=== PATIENT | female | born 1945 | race Two or more races ===

== ENCOUNTER → 2016-09-25 | Outpatient (CLI) | payer MEDICARE, MEDICAID | LOC: OD 13:11 | PROVIDERS: ATTEND Internal Medicine | DX: M25.512 Pain in left shoulder (principal) ==

== ENCOUNTER → 2016-09-25 | Outpatient (CLI) | payer MEDICARE, MEDICAID ==
--- NOTE | 2016-09-25 14:15 | WOMENS IMAGING REPORT ---
EXAM DESCRIPTION: BONE DENSITY HIP/SPINE COMPLETED DATE/TIME: 09/25/2016 1:08 pm REASON FOR STUDY: M81.0 OSTEO M81.0 AGE-RELATED OSTEOPOROSIS W/O CURRENT PATHOLOGICAL FRAC COMPARISON: PET-CT 03/17/2016 Bone density 07/18/2014 TECHNIQUE: Dual-Energy X-ray Absorptiometry (DEXA) of the AP Spine and Hip. LIMITATIONS: None. FINDINGS: LUMBAR SPINE: The bone mineral density (BMD) measured from L1-L4 in the AP projection correlates with a T-score of -3.0, which is osteoporotic as defined by the World Health Organization. This represents a 10% incre ase in bone density compared to 2013 HIP: The bone mineral density (BMD) measured in the left total hip correlates with a T-score of -2.4, whic h is borderline osteoporotic as defined by the World Health Organization. This represents a 10% incr ease in bone density compared to 2013 COMMENT: The World Health Organization defines low BMD as follows: T-score: Normal: Greater than -1.0 Osteopenia: Between -1.0 and -2.5 Osteoporosis: Less than -2.5 without fractures Established osteoporosis: Less than -2.5 with fractures In general, you may wish to consider: Diagnosis Treatment Follow-up DEXA Normal BMD Prevention 2-3 years Osteopenia Prevention/Therapy 1-2 years Osteoporosis Therapy Yearly TECHNICAL DOCUMENTATION: JOB ID: [id number]- All Rights Reserved
== END ==
LOC: WI 12:54
PROVIDERS: ATTEND Internal Medicine
DX: M81.0 Age-related osteoporosis without current pathological fracture (principal)
CPT/HCPCS: 77080

== ENCOUNTER → 2016-09-29 | Outpatient (CLI) | payer MEDICARE, MEDICAID | LOC: RAD 17:45 | PROVIDERS: ATTEND Internal Medicine | DX: C34.32 Malignant neoplasm of lower lobe, left bronchus or lung (principal) | CPT/HCPCS: 78815; A9552 ==

== ENCOUNTER → 2016-12-22 | Outpatient (CLI) | payer MEDICARE, MEDICAID | LOC: RAD 17:02 | PROVIDERS: ATTEND Internal Medicine | DX: C34.32 Malignant neoplasm of lower lobe, left bronchus or lung (principal) | CPT/HCPCS: 78815; A9552 ==

== ENCOUNTER → 2017-01-31 | Outpatient (CLI) | payer MEDICARE, MEDICAID ==
[2017-01-31 19:46] LABS: ANION GAP 10 (5-19); BLOOD UREA NITROGEN 12 mg/dL (7-20); CALCIUM 9.4 mg/dL (8.4-10.2); CARBON DIOXIDE 22 mmol/L (22-30); CHLORIDE 98 mmol/L (98-107); CREATININE RESULT 0.97 mg/dL (0.52-1.25); GLUCOSE 97 mg/dL (75-110); SODIUM 129.5 mmol/L (137-145)
== END ==
LOC: LAB 19:08
PROVIDERS: ATTEND Family Medicine
DX: E87.1 Hypo-osmolality and hyponatremia (principal)
CPT/HCPCS: 36415; 80048; 83930; 83935; 84300

== ENCOUNTER 2017-02-03 18:42 | Emergency (ER) | payer MEDICARE, MEDICAID ==
[2017-02-03] MEDS ORDERED: CEFTRIAXONE 1 GM/D5W RTU 50 ML IV ONE (18:48)
--- NOTE | 2017-02-03 18:50 | ER Document Report ---
ED General - General Stated Complaint: WEAKNESS Time Seen by Provider: 02/03/17 18:48 Mode of Arrival: Ambulatory Information source: Patient, Relative Notes: 71-year-old female who is currently on her eighth round of immunotherapy for enlarged lymph node with a history of lung CA presents with complaint of fever. Patient denies any complaints at all. Patient's oncologist requested lab work TRAVEL OUTSIDE OF THE [place] IN LAST 30 DAYS: No - HPI Onset: Yesterday Onset/Duration: Sudden Quality of pain: No pain Severity: None Pain Level: Denies Associated symptoms: Fever Exacerbated by: Denies Relieved by: Denies Similar symptoms previously: Yes Recently seen / treated by doctor: Yes - Related Data Allergies/Adverse Reactions: Penicillins Allergy (Unknown, Verified 06/18/13 12:21) Sulfa (Sulfonamide Antibiotics) Allergy (Unknown, Verified 06/18/13 12:21) Past Medical History - Social History Smoking Status: Never Smoker Cigarette use (# per day): No Chew tobacco use (# tins/day): No Smoking Education Provided: No Family History: Reviewed & Not Pertinent - Past Medical History Cardiac Medical History: Reports: Hx Hypertension Denies: Hx Heart Attack Pulmonary Medical History: Denies: Hx Asthma, Hx Tuberculosis Neurological Medical History: Denies: Hx Cerebrovascular Accident, Hx Seizures GI Medical History: Denies: Hx Hepatitis, Hx Hiatal Hernia, Hx Ulcer Infectious Medical History: Denies: Hx Hepatitis Past Surgical History: Denies: Hx Mastectomy, Hx Open Heart Surgery, Hx Pacemaker - Immunizations Hx Diphtheria, Pertussis, Tetanus Vaccination: No Review of Systems - Review of Systems Notes: REVIEW OF SYSTEMS: CONSTITUTIONAL : admit to fever EENT: Mouth pain CARDIOVASCULAR: Denies chest pain. Denies palpitations or racing or irregular heart beat. Denies ankle edema. RESPIRATORY: Denies cough, cold, or chest congestion. Denies shortness of breath, difficulty breathing, or wheezing. GASTROINTESTINAL: Denies abdominal pain or distention. Denies nausea, vomiting , or diarrhea. Denies blood in vomitus, stools, or per rectum. Denies black, tarry stools. Denies constipation. GENITOURINARY: Denies difficulty urinating, painful urination, burning, frequency, blood in urine, or discharge. FEMALE GENITOURINARY: Denies vaginal bleeding, heavy or abnormal periods, irregular periods. Denies vaginal discharge or odor. MUSCULOSKELETAL: Denies back or neck pain or stiffness. Denies joint pain or swelling. SKIN: Denies rash, lesions or sores. HEMATOLOGIC : Denies easy bruising or bleeding. LYMPHATIC: Denies swollen, enlarged glands. NEUROLOGICAL: Denies confusion or altered mental status. Denies passing out or loss of consciousness. Denies dizziness or lightheadedness. Denies headache. Denies weakness or paralysis or loss of use of either side. Denies problems with gait or speech. Denies sensory loss, numbness, or tingling. Denies seizures. PSYCHIATRIC: Denies anxiety or stress. Denies depression, suicidal ideation, or homicidal ideation. ALL OTHER SYSTEMS REVIEWED AND NEGATIVE. Dictation was performed using [employer] voice recognition software PHYSICAL EXAMINATION: GENERAL: Well-appearing, well-nourished and in no acute distress. HEAD: Atraumatic, normocephalic. EYES: Pupils equal round and reactive to light, extraocular movements intact, conjunctiva are normal. ENT: Nares patent, oropharynx clear without exudates. Moist mucous membranes. Sores on tongue NECK: Normal range of motion, supple without lymphadenopathy LUNGS: Breath sounds clear to auscultation bilaterally and equal. No wheezes rales or rhonchi. HEART: Regular rate and rhythm without murmurs ABDOMEN: Soft, nontender, nondistended abdomen. No guarding, no rebound. No masses appreciated. Female : deferred Musculoskeletal: Normal range of motion, no pitting or edema. No cyanosis. NEUROLOGICAL: Cranial nerves grossly intact. Normal speech, normal gait. Normal sensory, motor exams PSYCH: Normal mood, normal affect. SKIN: Warm, Dry, normal turgor, no rashes or lesions noted. Physical Exam - Vital signs Vitals: Temp 98.8 F 02/03/17 20:29 Course - Re-evaluation Re-evalutation: 02/03/17 18:50 Labwork is pending patient otherwise she looks extremely well given history of immuno compromised state cultures are pending 02/03/17 20:56 Mild hyponatremia is noted, patient otherwise looks well, I will defer on any further treatment at family request. have no suspicion for sepsis After performing a Medical Screening Examination, I estimate there is LOW risk for ACUTE CORONARY SYNDROME, RESPIRATORY FAILURE, SEPSIS OR MENINGITIS, thus I consider the discharge disposition reasonable. I have reevaluated this patient multiple times and no significant life threatening changes are noted. The patient son and I have discussed the diagnosis and risks, and we agree with discharging home with close follow-up. We also discussed returning to the Emergency Department immediately if new or worsening symptoms occur. We have discussed the symptoms which are most concerning (e.g., changing or worsening pain, trouble swallowing or breathing, neck stiffness, fever) that necessitate immediate return. - Vital Signs Vital signs: Temp Pulse Resp BP Pulse Ox 98.8 F 83 18 149/60 H 100 02/03/17 20:30 02/03/17 20:31 02/03/17 20:31 02/03/17 20:31 02/03/17 20:31 - Laboratory Result Diagrams: 02/03/17 19:55 02/03/17 20:05 Laboratory results interpreted by me: 02/03/17 02/03/17 02/03/17 19:05 19:55 20:05 RBC 3.55 L Hgb 10.3 L Hct 31.8 L VBG pH VBG pCO2 Sodium 124.3 L Chloride 95 L Carbon Dioxide 20 L Est GFR (Non-Af Amer) 55 L Urine Ascorbic Acid 40 H 02/03/17 20:05 RBC Hgb Hct VBG pH 7.44 H VBG pCO2 33.4 L Sodium Chloride Carbon Dioxide Est GFR (Non-Af Amer) Urine Ascorbic Acid - Diagnostic Test Radiology reviewed: Image reviewed, Reports reviewed - questionble infiltrate - EKG Interpretation by Me EKG shows normal: Sinus rhythm, Canmer, Intervals, QRS Complexes Discharge - Discharge Clinical Impression: Cough, Hyponatremia Fever Qualifiers: Fever type: unspecified Qualified Code(s): R50.9 - Fever, unspecified Condition: Stable Disposition: HOME, SELF-CARE Instructions: Fever ([facility]) Referrals: KHRIS TIDWELL MD [Primary Care Provider] - Follow up tomorrow
--- NOTE | 2017-02-03 19:26 | RADIOLOGY REPORT (SQ) ---
EXAM DESCRIPTION: CHEST PA/LAT COMPLETED DATE/TIME: 02/03/2017 7:10 pm REASON FOR STUDY: fever COMPARISON: PET scan dated November 2016 EXAM PARAMETERS: NUMBER OF VIEWS: two views TECHNIQUE: Digital Frontal and Lateral radiographic views of the chest acquired. RADIATION DOSE: NA LIMITATIONS: none FINDINGS: LUNGS AND PLEURA: There are patchy pleural and parenchymal densities in the left mid and l ower lung field which appear improved as compared to the previous PET scan. These could represent re sidual changes related to the mass lesions described on the previous study. The possibility of an ac danny process cannot be excluded. There is some ill-defined increased density in the right lung apex w hich could represent a developing infiltrate. MEDIASTINUM AND HILAR STRUCTURES: Left hilum is partially obscured due to overlying densities. HEART AND VASCULAR STRUCTURES: Heart normal size. No evidence for failure. BONES: No acute findings. HARDWARE: Surgical clips are identified in left lower hemithorax and in the right lung apex. OTHER: No other significant finding. IMPRESSION: There are patchy pleuroparenchymal changes in the left mid and lower lung field as noted above which appear improved as compared to the previous PET-CT scan. This could represent residual changes related to the mass lesions described on the previous study. The possibility of an acute pro cess cannot be excluded. There is some ill-defined increased density in the right lung apex which co uld represent a developing infiltrate. Other findings as noted above TECHNICAL DOCUMENTATION: JOB ID: [id number]- All Rights Reserved
[2017-02-03 20:05] LABS: APPEARANCE,URINE CLEAR; BILIRUBIN,URINE NEGATIVE (NEGATIVE); GLUCOSE, URINE NEGATIVE (NEGATIVE); KETONES,URINE NEGATIVE (NEGATIVE); LEUKOCYTE ESTERASE,URINE NEGATIVE (NEGATIVE); NITRITE,URINE NEGATIVE (NEGATIVE); PROTEIN,URINE NEGATIVE (NEGATIVE); URINE SPECIFIC GRAVITY 1.006; UROBILINOGEN,URINE NEGATIVE mg/dL (<2.0)
[2017-02-03 20:07] LABS: ABSOLUTE BASOPHILS # (AUTO) 0.1 10^3/uL (0.0-0.2); ABSOLUTE EOSINOPHILS # (AUTO) 0.1 10^3/uL (0.0-0.6); ABSOLUTE LYMPHOCYTES (AUTO) 1.4 10^3/uL (0.5-4.7); ABSOLUTE MONOCYTES (AUTO) 0.9 10^3/uL (0.1-1.4); ABSOLUTE NEUT (AUTO) 4.6 10^3/uL (1.7-8.2); BASOPHILS % (AUTO) 1.2 % (0-2); EOSINOPHILS % (AUTO) 0.9 % (0-6); HEMATOCRIT 31.8 % (36.0-47.0); HEMOGLOBIN 10.3 g/dL (12.0-15.5); HGB HCT DIFFERENCE -0.9; LYMPHOCYTES % (AUTO) 20.1 % (13-45); MEAN CORPUSCULAR HEMOGLOBIN 29.1 pg (27.0-33.4); MEAN CORPUSCULAR HGB CONC 32.4 g/dL (32.0-36.0); MEAN CORPUSCULAR VOLUME 90 fl (80-97); MONOCYTES % (AUTO) 12.4 % (3-13); RED BLOOD COUNT 3.55 10^6/uL (3.72-5.28); RED CELL DISTRIBUTION WIDTH 13.8 % (11.5-14.0); SEGMENTED NEUTROPHILS % (AUTO) 65.4 % (42-78); WHITE BLOOD COUNT 7.1 10^3/uL (4.0-10.5)
[2017-02-03 20:19] LABS: VENOUS BLOOD BASE EXCESS -1.7 mmol/L; VENOUS BLOOD PCO2 33.4 mmHg (35-63); VENOUS BLOOD PH 7.44 (7.30-7.42)
[2017-02-03 20:30] LABS: PROTHROMBIN TIME 12.8 SEC (11.4-15.4)
[2017-02-03 20:38] LABS: ALANINE AMINOTRANSFERASE 30 U/L (9-52); ALBUMIN 3.7 g/dL (3.5-5.0); ALKALINE PHOSPHATASE 85 U/L (38-126); ANION GAP 9 (5-19); ASPARTATE AMINO TRANSFERASE 28 U/L (14-36); BILIRUBIN,DIRECT 0.4 mg/dL (0.0-0.4); BILIRUBIN,TOTAL 0.6 mg/dL (0.2-1.3); BLOOD UREA NITROGEN 12 mg/dL (7-20); CALCIUM 9.4 mg/dL (8.4-10.2); CARBON DIOXIDE 20 mmol/L (22-30); CHLORIDE 95 mmol/L (98-107); CREATININE RESULT 0.99 mg/dL (0.52-1.25); GLUCOSE 99 mg/dL (75-110); POTASSIUM 4.9 mmol/L (3.6-5.0); SODIUM 124.3 mmol/L (137-145); TOTAL PROTEIN 6.8 g/dL (6.3-8.2)
[2017-02-03 21:09] VITALS: BP 143/64
--- NOTE | 2017-02-03 21:15 | EKG REPORT ---
SEVERITY:- BORDERLINE ECG - SINUS ARRHYTHMIA, RATE 70-94 PROBABLE LEFT ATRIAL ABNORMALITY LOW VOLTAGE IN FRONTAL LEADS : Confirmed by: Gila Campos 03-Feb-2017 21:15:03
[2017-02-03 21:55] LABS: FREE T3 3.08 pg/mL (2.77-5.27)
[2017-02-03 22:09] LABS: THYROID STIMULATING HORMONE 5.73 uIU/mL (0.47-4.68)
== END 2017-02-03 21:10 | disposition home or self-care (01) ==
LOC: ER 18:42
DX: R50.9 Fever, unspecified (principal); E87.1 Hypo-osmolality and hyponatremia; R05 Cough; K13.79 Other lesions of oral mucosa; R59.9 Enlarged lymph nodes, unspecified; I10 Essential (primary) hypertension; Z85.118 Personal history of other malignant neoplasm of bronchus and lung; Z79.899 Other long term (current) drug therapy; Z88.0 Allergy status to penicillin; Z88.2 Allergy status to sulfonamides
CPT/HCPCS: 36415; 71020; 80053; 81001; 82803; 83605; 84439; 84443; 84481; 85025; 85610; 87040; 87086; 93005; 93010; 99284

== ENCOUNTER → 2017-02-05 | Outpatient (CLI) | payer MEDICARE, MEDICAID ==
[2017-02-05 08:30] LABS: ANION GAP 10 (5-19); BLOOD UREA NITROGEN 11 mg/dL (7-20); CALCIUM 9.4 mg/dL (8.4-10.2); CARBON DIOXIDE 23 mmol/L (22-30); CHLORIDE 96 mmol/L (98-107); CREATININE RESULT 1.09 mg/dL (0.52-1.25); GLUCOSE 102 mg/dL (75-110); POTASSIUM 4.9 mmol/L (3.6-5.0); SODIUM 128.9 mmol/L (137-145)
== END ==
LOC: LAB 07:51
PROVIDERS: ATTEND Physician Assistant
DX: E87.1 Hypo-osmolality and hyponatremia (principal)
CPT/HCPCS: 36415; 80048

== ENCOUNTER → 2017-02-10 | Outpatient (CLI) | payer MEDICARE, MEDICAID ==
[2017-02-10 08:04] LABS: ANION GAP 13 (5-19); BLOOD UREA NITROGEN 10 mg/dL (7-20); CALCIUM 8.7 mg/dL (8.4-10.2); CARBON DIOXIDE 20 mmol/L (22-30); CHLORIDE 100 mmol/L (98-107); CREATININE RESULT 0.94 mg/dL (0.52-1.25); GLUCOSE 92 mg/dL (75-110); POTASSIUM 4.7 mmol/L (3.6-5.0); SODIUM 132.5 mmol/L (137-145)
== END ==
LOC: LAB 07:34
PROVIDERS: ATTEND Physician Assistant
DX: E87.1 Hypo-osmolality and hyponatremia (principal)
CPT/HCPCS: 36415; 80048

== ENCOUNTER 2017-03-11 12:19 | Outpatient (CLI) | payer MEDICARE, MEDICAID ==
[~2017-03-11 12:19] MED LIST: FERUMOXYTOL (NON-ESRD) 510 MG/NS 100 ML IV PRN; NORMAL SALINE 250 ML IV PRN
[2017-03-11 13:08] VITALS: BP 140/47
== END 2017-03-11 13:25 | disposition home or self-care (01) ==
LOC: II 12:19 → 5TH 12:21 → II 13:25
PROVIDERS: ATTEND Internal Medicine
PROC: 3E033GC Introduction of Other Therapeutic Substance into Peripheral Vein, Percutaneous Approach (ICD-10-PCS; principal; 2017-03-11)
DX: C34.32 Malignant neoplasm of lower lobe, left bronchus or lung (principal)
CPT/HCPCS: 96365; Q0138

== ENCOUNTER → 2017-03-30 | Outpatient (CLI) | payer MEDICARE, MEDICAID ==
--- NOTE | 2017-03-31 08:56 | RADIOLOGY REPORT (SQ) ---
EXAM DESCRIPTION: PET CT SKULL/THIGH COMPLETED DATE/TIME: 03/30/2017 7:13 pm REASON FOR STUDY: LUNG CANCER C34.32 MALIGNANT NEOPLASM OF LOWER LOBE, LEFT BRONCHUS OR LOU COMPARISON: 12/22/2016 and 09/29/2016. RADIONUCLIDE AND DOSE: 12.0 mCi F18 FDG The route of agent administration: Intravenous FASTING BLOOD SUGAR: 74 mg/dl CONTRAST TYPE AND DOSE: No CT contrast given. TECHNIQUE: Blood glucose level was verified. Above dose of FDG was injected intravenously. 2-D seg mented attenuation correction images were obtained from the base of the skull to the midthighs. Nonc ontrast CT images were obtained for attenuation correction and fusion with emission images. CT image s were performed without oral or intravenous contrast and are not sensitive for parenchymal lesions. A series of overlapping emission PET images were obtained. Images reviewed and manipulated at [facility] work station by the radiologist. Images stored on PACS. LIMITATIONS: None. FINDINGS: HEAD AND NECK: There is a new hypermetabolic cervical lymph node on the left side. This m easures 7 mm (image 28) with mean SUV value 3.38 and maximum value 4.65. Additional smaller subcenti meter lymph nodes bilaterally at roughly the same level with mean SUV value on the right 2.92 and on the left 3.36. There is also a focal area of increased activity on the right side of the thyroid. O n CT images difficult to determine if this is the thyroid or could be a small adjacent lymph node. M woody SUV value 3.21. CHEST: The mass in the left lower lobe is smaller, currently measuring 2.4 x 3.3 cm with prior measur ement of 3.1 x 3.5 cm. Mean SUV value 3.21 with prior value of 3. Subcarinal lymph node measures 0. 8 x 1.2 cm with prior measurement of 1.5 x 1.7 cm. Mean SUV value 4.52 with prior value of 6.5. The re are small bilateral hilar lymph nodes, subcentimeter, with mean SUV value on the right 3.04 and on the left 3.50. Previously seen right supraclavicular lymph node is no longer present. There are ra diotherapy markers at this level. Previously seen right paratracheal lymph node with no measurable m etabolic activity. ABDOMEN AND PELVIS: No areas of abnormal metabolic activity in the abdomen or pelvis. Expected physi ologic activity is present in the genitourinary system and bowel. PROXIMAL LOWER EXTREMITIES: No areas of abnormal metabolic activity in the soft tissues of the lower extremities. BONES: No abnormal metabolic activity in the visualized skeleton. ADDITIONAL CT FINDINGS: Hiatal hernia. Colonic diverticulosis. No additional significant findings o n the noncontrast CT images. OTHER: No other significant findings. IMPRESSION: 1. GENERAL IMPROVEMENT IN THE CHEST. THE LEFT LOWER LOBE MASS AND THE SUBCARINAL LYMPH NODE HAVE BOT H DECREASED IN SIZE WITH DECREASED METABOLIC ACTIVITY COMPARED TO THE MOST RECENT STUDY. THE RIGHT S UPRACLAVICULAR LYMPH NODE IS NO LONGER PRESENT. THERE ARE NOW RADIOTHERAPY MARKERS AT THIS LEVEL. T HERE IS MILD HILAR ACTIVITY. 2. INTERVAL DEVELOPMENT OF SMALL SUBCENTIMETER CERVICAL LYMPH NODES WITH INCREASED METABOLIC ACTIVITY . THESE COULD REPRESENT METASTATIC LESIONS ALTHOUGH OTHER ETIOLOGIES INCLUDE INFLAMMATION OR INFECTI ON. TECHNICAL DOCUMENTATION: JOB ID: [id number] [email or web address]- All Rights Reserved
== END ==
LOC: RAD 16:28
PROVIDERS: ATTEND Internal Medicine
DX: C34.32 Malignant neoplasm of lower lobe, left bronchus or lung (principal)
CPT/HCPCS: 78815; A9552

== ENCOUNTER → 2017-06-22 | Outpatient (CLI) | payer MEDICARE, MEDICAID ==
--- NOTE | 2017-06-23 08:57 | RADIOLOGY REPORT (SQ) ---
EXAM DESCRIPTION: PET CT SKULL/THIGH COMPLETED DATE/TIME: 06/22/2017 5:18 pm REASON FOR STUDY: LUNG CANCER C34.32 MALIGNANT NEOPLASM OF LOWER LOBE, LEFT BRONCHUS OR LOU COMPARISON: Multiple previous, 03/30/2017, 12/22/2016, 09/29/2016, 04/09/2013 PET-CT RADIONUCLIDE AND DOSE: 10.2 mCi F18 FDG The route of agent administration: Intravenous FASTING BLOOD SUGAR: 79 mg/dl CONTRAST TYPE AND DOSE: No CT contrast given. TECHNIQUE: Blood glucose level was verified. Above dose of FDG was injected intravenously. 2-D seg mented attenuation correction images were obtained from the base of the skull to the midthighs. Nonc ontrast CT images were obtained for attenuation correction and fusion with emission images. CT image s were performed without oral or intravenous contrast and are not sensitive for parenchymal lesions. A series of overlapping emission PET images were obtained. Images [facility] by the radiologist. Images stored on PACS. LIMITATIONS: None. FINDINGS: There is diffuse brown fat activity throughout the supraclavicular and paraspinal regions. Most activity areas of brown fat metabolism are along the right posterior rib interspace between th e 6th and 7th ribs, with SUV 2.9. Prompt fat metabolism is also seen in the left lower paraspinal re gion between the left posterior 9th and 10th ribs, with SUV 3.4. HEAD AND NECK: Hypermetabolic cervical nodes seen on 03/30/2017 have resolved. CHEST: Persistent soft tissue mass in the left lower lobe with adjacent radiotherapy treatment marker s, 3.5 x 2.5 cm in size with SUV 2.8 (was stable in size since 03/30/2017, SUV at that time 3.2). There is a sub- carinal lymph node stable in size, 1.2 x 0.7 cm in size, with SUV 3.7 (SUV 03/30/2017 4.5). A subcentimeter right hilar lymph node is present on axial image 73 with SUV 2.4 (was SUV 3.01 2016). The left hilar lymph node difficult to measure in size, about a cm on axial image 74 has SUV today at 2.5 (was 3.5 on 03/30/2017). ABDOMEN AND PELVIS: No areas of abnormal metabolic activity in the abdomen or pelvis. Expected physi ologic activity is present in the genitourinary system and bowel. PROXIMAL LOWER EXTREMITIES: No areas of abnormal metabolic activity in the soft tissues of the lower extremities. BONES: No abnormal metabolic activity in the visualized skeleton. ADDITIONAL CT FINDINGS: Moderate-sized retrocardiac hiatal hernia, colonic diverticulosis without CT signs of acute diverticulitis. OTHER: Liver background SUV 1.8. Blood pool background activity 1.6 SUV IMPRESSION: Continued favorable response, with low level metabolic activity in the primary left lowe r lobe tumor and few small mediastinal lymph nodes. Diffuse brown fat activity. TECHNICAL DOCUMENTATION: JOB ID: [id number] [employer]- All Rights Reserved
== END ==
LOC: RAD 14:37
PROVIDERS: ATTEND Internal Medicine
DX: C34.32 Malignant neoplasm of lower lobe, left bronchus or lung (principal)
CPT/HCPCS: 78815; A9552

== ENCOUNTER → 2017-10-26 | Outpatient (CLI) | payer MEDICARE, MEDICAID ==
--- NOTE | 2017-10-27 07:11 | RADIOLOGY REPORT (SQ) ---
EXAM DESCRIPTION: PET CT SKULL/THIGH COMPLETED DATE/TIME: 10/26/2017 6:28 pm REASON FOR STUDY: LUNG CANCER C34.32 MALIGNANT NEOPLASM OF LOWER LOBE, LEFT BRONCHUS OR LOU COMPARISON: 03/30/2017, 03/17/2016, 01/22/2015, 07/10/2014, 04/09/2013 PET-CT exams RADIONUCLIDE AND DOSE: 10.1 mCi F18 FDG The route of agent administration: Intravenous FASTING BLOOD SUGAR: 71 mg/dl CONTRAST TYPE AND DOSE: No CT contrast given. TECHNIQUE: Blood glucose level was verified. Above dose of FDG was injected intravenously. 2-D seg mented attenuation correction images were obtained from the base of the skull to the midthighs. Nonc ontrast CT images were obtained for attenuation correction and fusion with emission images. CT image s were performed without oral or intravenous contrast and are not sensitive for parenchymal lesions. A series of overlapping emission PET images were obtained. Images reviewed and manipulated at [facility] work station by the radiologist. Images stored on PACS. LIMITATIONS: None. FINDINGS: HEAD AND NECK: Hypermetabolic cervical nodes described on 03/30/2017 have resolved. Just d orsal to the right permanent central line, a subcentimeter supraclavicular lymph node is present on a xial image 41 with SUV 2.5. This is of doubtful clinical significance. CHEST: The primary mass in the left lower lobe surrounded by radiotherapy treatment markers is stable in size, about 3.3 x 2.5 cm in diameter with SUV 3.7 (was 3.3 x 2.4 cm in size with SUV 3.21 03/30/20). There is a sub-carinal lymph node 1.1 x 0.6 cm in size with SUV of 4 (was 1.2 x 0.8 cm with SUV 4.5 o n 03/30/2017). ABDOMEN AND PELVIS: No areas of abnormal metabolic activity in the abdomen or pelvis. Expected physi ologic activity is present in the genitourinary system and bowel. PROXIMAL LOWER EXTREMITIES: No areas of abnormal metabolic activity in the soft tissues of the lower extremities. BONES: Small non metabolic sclerotic foci are present in the left C7 pedicle, left T1 lamina and brig ht T2 lamina unchanged since 2012. ADDITIONAL CT FINDINGS: Large retrocardiac hiatal hernia. Calcified granuloma right posterior lung b ase. OTHER: Liver background activity 2.65 SUV. Blood pool activity 2.1 SUV IMPRESSION: Stable left lower lobe mass and sub- carinal lymph node compared to multiple previous st udies. Resolved cervical adenopathy seen on 03/30/2017 TECHNICAL DOCUMENTATION: JOB ID: [id number] [employer]- All Rights Reserved Reading location - IP/workstation name: [email or web address]
== END ==
LOC: RAD 15:01
PROVIDERS: ATTEND Internal Medicine
DX: C34.32 Malignant neoplasm of lower lobe, left bronchus or lung (principal)
CPT/HCPCS: 78815; A9552

== ENCOUNTER → 2017-11-04 | Outpatient (CLI) | payer MEDICARE, MEDICAID ==
[2017-11-04 10:35] LABS: FREE T4 (FREE THYROXINE) 0.64 ng/dL (0.78-2.19)
[2017-11-04 10:49] LABS: THYROID STIMULATING HORMONE 76.7 uIU/mL (0.47-4.68)
[2017-11-04 12:57] LABS: FREE T3 1.77 pg/mL (2.77-5.27)
[2017-11-04 12:58] LABS: FREE T4 (FREE THYROXINE) 0.64 ng/dL (0.78-2.19); THYROID STIMULATING HORMONE 76.7 uIU/mL (0.47-4.68)
== END ==
LOC: OD 08:35
PROVIDERS: ATTEND Physician Assistant
DX: E03.9 Hypothyroidism, unspecified (principal)
CPT/HCPCS: 36415; 84439; 84443; 84481

== ENCOUNTER → 2017-12-30 | Outpatient (CLI) | payer MEDICARE, MEDICAID ==
[2017-12-30 14:19] LABS: FREE T4 (FREE THYROXINE) 1.47 ng/dL (0.78-2.19)
[2017-12-30 14:33] LABS: THYROID STIMULATING HORMONE 3.68 uIU/mL (0.47-4.68)
== END ==
LOC: OD 12:04
PROVIDERS: ATTEND Physician Assistant
DX: E03.9 Hypothyroidism, unspecified (principal)
CPT/HCPCS: 36415; 84439; 84443

== ENCOUNTER → 2018-02-22 | Outpatient (CLI) | payer MEDICARE, MEDICAID ==
--- NOTE | 2018-02-23 09:15 | RADIOLOGY REPORT (SQ) ---
EXAM DESCRIPTION: PET CT SKULL/THIGH COMPLETED DATE/TIME: 02/22/2018 8:27 pm REASON FOR STUDY: LUNG CANCER C34.32 MALIGNANT NEOPLASM OF LOWER LOBE, LEFT BRONCHUS OR LOU COMPARISON: 10/26/2017 and 03/30/2017. RADIONUCLIDE AND DOSE: 10.0 mCi F18 FDG The route of agent administration: Intravenous FASTING BLOOD SUGAR: 93 mg/dl CONTRAST TYPE AND DOSE: No CT contrast given. TECHNIQUE: Blood glucose level was verified. Above dose of FDG was injected intravenously. 2-D seg mented attenuation correction images were obtained from the base of the skull to the midthighs. Nonc ontrast CT images were obtained for attenuation correction and fusion with emission images. CT image s were performed without oral or intravenous contrast and are not sensitive for parenchymal lesions. A series of overlapping emission PET images were obtained. Images reviewed and manipulated at [facility] work station by the radiologist. Images stored on PACS. LIMITATIONS: None. FINDINGS: HEAD AND NECK: There is prominent focal increased activity in the posterior left vocal cor d at the attachment to the arytenoid. Mean SUV 7.54. No abnormal finding on accompanying CT image. The right supraclavicular lymph node is again identified but currently has no abnormal increased act ivity. No other areas of abnormal metabolic activity in the soft tissues of the head and neck. CHEST: The primary mass in the left lower lobe currently has maximum transverse measurements of 1.8 x 3.9 cm. (Axial series 3, image 98). Prior measurements at this same level were 1.3 x 3.9 cm. (Axi al series 3, image 86). Mean SUV value on the current study 3.87 and 4.39. Prior values were 3.66 a nd 3.74. The previous seen subcarinal lymph node with calcification measures 0.5 x 1.2 cm with prior measurement 0.6 x 1.1 cm. Mean SUV value 4.62 with prior value of 4. Again seen is calcified granu bety in the right lower lobe. Subcentimeter nodule in the left lower lobe (axial series 3, image 112 ) is unchanged and is not hypermetabolic. ABDOMEN AND PELVIS: No areas of abnormal metabolic activity in the abdomen or pelvis. Expected physi ologic activity is present in the genitourinary system and bowel. PROXIMAL LOWER EXTREMITIES: No areas of abnormal metabolic activity in the soft tissues of the lower extremities. BONES: No abnormal metabolic activity in the visualized skeleton. ADDITIONAL CT FINDINGS: Hiatal hernia. No additional significant findings on the noncontrast CT imag es. OTHER: Liver background activity SUV 2.62. Blood pool background activity mean SUV 1.79. IMPRESSION: 1. PROMINENT FOCAL INCREASED ACTIVITY IN THE POSTERIOR LEFT VOCAL CORD DESCRIBED. NO ASSOCIATED F INDING ON CT. THIS IS PRESUMED RELATED TO SPEAKING. UNUSUAL THAT THE ACTIVITY IS ASYMMETRIC AND GASTELUM S NOT INCLUDE THE RIGHT VOCAL CORD. THIS COULD BE INDICATIVE OF RIGHT VOCAL CORD PARALYSIS. RECOMME ND CLINICAL EVALUATION. 2. PRIMARY MASS IN THE LEFT LOWER LOBE IS SLIGHTLY LARGER AND DOES HAVE INCREASED SUV VALUE ON THE CU RRENT STUDY COMPARED TO THE PRIOR STUDY. SUBCARINAL LYMPH NODE IS UNCHANGED IN SIZE WITH MEAN SUV VA LUE ALSO SLIGHTLY HIGHER. THE RIGHT SUPRACLAVICULAR LYMPH NODE IS UNCHANGED ON CT WITH NO ABNORMAL A CTIVITY ON PET IMAGING. NO NEW FINDINGS IN THE CHEST OR ELSEWHERE. TECHNICAL DOCUMENTATION: JOB ID: [id number] [employer]- All Rights Reserved Reading location - IP/workstation name: [email or web address]
== END ==
LOC: RAD 14:42
PROVIDERS: ATTEND Internal Medicine
DX: C34.32 Malignant neoplasm of lower lobe, left bronchus or lung (principal)
CPT/HCPCS: 78815; A9552

== ENCOUNTER → 2018-05-31 | Outpatient (CLI) | payer MEDICARE, MEDICAID ==
--- NOTE | 2018-06-01 09:05 | RADIOLOGY REPORT (SQ) ---
EXAM DESCRIPTION: PET CT SKULL/THIGH COMPLETED DATE/TIME: 05/31/2018 7:29 pm REASON FOR STUDY: LUNG CANCER C34.32 MALIGNANT NEOPLASM OF LOWER LOBE, LEFT BRONCHUS OR LOU COMPARISON: 02/22/2018 RADIONUCLIDE AND DOSE: 10.98 mCi F18 FDG The route of agent administration: Intravenous FASTING BLOOD SUGAR: 84 mg/dl CONTRAST TYPE AND DOSE: No CT contrast given. TECHNIQUE: Blood glucose level was verified. Above dose of FDG was injected intravenously. 2-D seg mented attenuation correction images were obtained from the base of the skull to the midthighs. Nonc ontrast CT images were obtained for attenuation correction and fusion with emission images. CT image s were performed without oral or intravenous contrast and are not sensitive for parenchymal lesions. A series of overlapping emission PET images were obtained. Images reviewed and manipulated at [facility] work station by the radiologist. Images stored on PACS. LIMITATIONS: None. FINDINGS: HEAD AND NECK: No areas of significant abnormal metabolic activity in the soft tissues of the head and neck. CHEST: Left lower lobe lesion 1.7 x 4.1 cm with SUV 4.7 to 5.4, previously 3.9 to 4.4. Station 7 par tially calcified lymph node with no change morphologically or SUV values. ABDOMEN AND PELVIS: No areas of abnormal metabolic activity in the abdomen or pelvis. Expected physi ologic activity is present in the genitourinary system and bowel. PROXIMAL LOWER EXTREMITIES: No areas of abnormal metabolic activity in the soft tissues of the lower extremities. BONES: No abnormal metabolic activity in the visualized skeleton. ADDITIONAL CT FINDINGS: No additional significant findings on the noncontrast CT images. OTHER: No other significant findings. IMPRESSION: Stable exam. Primary lung lesion morphologically unchanged with slight change in SUVs o f uncertain clinical significance. TECHNICAL DOCUMENTATION: JOB ID: [id number] [employer]- All Rights Reserved Reading location - IP/workstation name: [email or web address]
== END ==
LOC: RAD 16:53
PROVIDERS: ATTEND Internal Medicine
DX: C34.32 Malignant neoplasm of lower lobe, left bronchus or lung (principal)
CPT/HCPCS: 78815; A9552

== ENCOUNTER 2018-06-10 12:54 | Outpatient (CLI) | payer MEDICARE, MEDICAID ==
[2018-06-10 13:28] VITALS: BP 140/59
== END 2018-06-10 13:59 | disposition home or self-care (01) ==
LOC: II 12:54 → 5TH 13:03 → II 13:59
PROVIDERS: ATTEND Internal Medicine
PROC: 3E043GC Introduction of Other Therapeutic Substance into Central Vein, Percutaneous Approach (ICD-10-PCS; principal; 2018-06-10)
DX: D50.8 Other iron deficiency anemias (principal); N18.3 Chronic kidney disease, stage 3 (moderate)
CPT/HCPCS: 96365; Q0138; 96367

== ENCOUNTER 2018-06-17 12:41 | Outpatient (CLI) | payer MEDICARE, MEDICAID ==
[~2018-06-17 12:41] MED LIST changes: -FERUMOXYTOL (NON-ESRD) 510 MG/NS 100 ML IV PRN; +FERUMOXYTOL 510 MG in NORMAL SALINE 100 ML IV PRN
[2018-06-17 13:18] VITALS: BP 141/54
== END 2018-06-17 13:39 | disposition home or self-care (01) ==
LOC: II 12:41 → 5TH 13:23 → II 13:39
PROVIDERS: ATTEND Internal Medicine
PROC: 3E033GC Introduction of Other Therapeutic Substance into Peripheral Vein, Percutaneous Approach (ICD-10-PCS; principal; 2018-06-17)
DX: D50.8 Other iron deficiency anemias (principal); N18.3 Chronic kidney disease, stage 3 (moderate)
CPT/HCPCS: 96367; Q0138; 96365

== ENCOUNTER → 2018-07-08 | Outpatient (CLI) | payer MEDICARE, MEDICAID ==
[2018-07-08 12:29] LABS: FREE T4 (FREE THYROXINE) 1.62 ng/dL (0.78-2.19)
[2018-07-08 12:43] LABS: THYROID STIMULATING HORMONE 2.98 uIU/mL (0.47-4.68)
== END ==
LOC: LAB 11:30
PROVIDERS: ATTEND Physician Assistant
DX: E03.9 Hypothyroidism, unspecified (principal)
CPT/HCPCS: 36415; 84439; 84443

== ENCOUNTER → 2018-10-27 | Outpatient (CLI) | payer MEDICARE, MEDICAID ==
--- NOTE | 2018-10-27 12:35 | WOMENS IMAGING REPORT ---
EXAM DESCRIPTION: BONE DENSITY HIP/SPINE COMPLETED DATE/TIME: 10/27/2018 9:16 am REASON FOR STUDY: M81.0 AGE-RELATED OSTEOPOROSIS WITHOUT CURRENT PATHOLOGICAL FRACTURE M81.0 AGE-RE LATED OSTEOPOROSIS W/O CURRENT PATHOLOGICAL FRAC COMPARISON: 2013, 2016 TECHNIQUE: Dual-Energy X-ray Absorptiometry (DEXA) of the AP Spine and Hip. LIMITATIONS: None. FINDINGS: LUMBAR SPINE: The bone mineral density (BMD) measured from L1-L4 in the AP projection correlates with a T-score of -2.6, which is osteoporotic as defined by the World Health Organization. This represents a 7% increa se in bone density compared to 2017. HIP: The bone mineral density (BMD) measured in the left femoral neck at the hip correlates with a T-score of -3.7, which is osteoporotic as defined by the World Health Organization. This is stable compared to bone density in 2017 IMPRESSION: 1. LUMBAR SPINE: Osteoporotic 2. HIP: Osteoporotic COMMENT: The World Health Organization defines low BMD as follows: T-score: Normal: Greater than -1.0 Osteopenia: Between -1.0 and -2.5 Osteoporosis: Less than -2.5 without fractures Established osteoporosis: Less than -2.5 with fractures In general, you may wish to consider: Diagnosis Treatment Follow-up DEXA Normal BMD Prevention 2-3 years Osteopenia Prevention/Therapy 1-2 years Osteoporosis Therapy Yearly TECHNICAL DOCUMENTATION: JOB ID: [id number] [employer]- All Rights Reserved Reading location - IP/workstation name: [email or web address]
== END ==
LOC: WI 08:36
PROVIDERS: ATTEND Internal Medicine
DX: M81.0 Age-related osteoporosis without current pathological fracture (principal)
CPT/HCPCS: 77080

== ENCOUNTER → 2018-10-29 | Outpatient (CLI) | payer MEDICARE, MEDICAID ==
[2018-10-29 09:16] LABS: HEMATOCRIT 34.2 % (36.0-47.0); HEMOGLOBIN 12.4 g/dL (12.0-15.5); MEAN CORPUSCULAR HEMOGLOBIN 36.7 pg (27.0-33.4); MEAN CORPUSCULAR HGB CONC 36.2 g/dL (32.0-36.0); MEAN CORPUSCULAR VOLUME 101 fl (80-97); PLATELET COUNT 338 10^3/uL (150-450); RED BLOOD COUNT 3.37 10^6/uL (3.72-5.28); RED CELL DISTRIBUTION WIDTH 12.8 % (11.5-14.0); WHITE BLOOD COUNT 16.1 10^3/uL (4.0-10.5)
[2018-10-29 09:38] LABS: ABSOLUTE LYMPHOCYTES# (MANUAL) 11.3 10^3/uL (0.5-4.7); ABSOLUTE NEUTROPHILS# (MANUAL) 4.8 10^3/uL (1.7-8.2); ALANINE AMINOTRANSFERASE 10 U/L (9-52); ALBUMIN 4.4 g/dL (3.5-5.0); ALKALINE PHOSPHATASE 94 U/L (38-126); ANION GAP 11 (5-19); ASPARTATE AMINO TRANSFERASE 22 U/L (14-36); BASOPHILS % (MANUAL) 0 % (0-2); BILIRUBIN,DIRECT 0.3 mg/dL (0.0-0.4); BILIRUBIN,TOTAL 0.4 mg/dL (0.2-1.3); BLOOD UREA NITROGEN 17 mg/dL (7-20); CARBON DIOXIDE 26 mmol/L (22-30); CHLORIDE 105 mmol/L (98-107); EOSINOPHILS % (MANUAL) 0 % (0-6); GLUCOSE 79 mg/dL (75-110); IRON(TIBC) 116.9 ug/dL (37-170); LYMPHOCYTES % (MANUAL) 62 % (13-45); METAMYELOCYTES % (MANUAL) 1 % (0); MONOCYTES % (MANUAL) 0 % (3-13); SEGMENTED NEUTROPHILS % (MAN) 29 % (42-78); SODIUM 141.6 mmol/L (137-145); TOTAL CELLS COUNTED 100; TOTAL PROTEIN 7.2 g/dL (6.3-8.2)
[2018-10-29 09:39] LABS: PLATELET COMMENT ADEQUATE
[2018-10-29 10:08] LABS: TOTAL T3 0.824 ng/mL (0.970-1.69)
== END ==
LOC: OD 07:58
PROVIDERS: ATTEND Internal Medicine
DX: C34.32 Malignant neoplasm of lower lobe, left bronchus or lung (principal); E03.9 Hypothyroidism, unspecified; D51.8 Other vitamin B12 deficiency anemias; N18.3 Chronic kidney disease, stage 3 (moderate); D50.8 Other iron deficiency anemias; E13.42 Other specified diabetes mellitus with diabetic polyneuropathy
CPT/HCPCS: 36415; 80053; 82607; 82728; 83540; 83550; 84436; 84443; 84480; 85025

== ENCOUNTER → 2018-11-01 | Outpatient (CLI) | payer MEDICARE, MEDICAID ==
--- NOTE | 2018-11-02 08:46 | RADIOLOGY REPORT (SQ) ---
EXAM DESCRIPTION: PET CT SKULL/THIGH COMPLETED DATE/TIME: 11/01/2018 8:47 pm REASON FOR STUDY: LUNG CANCER C34.32 MALIGNANT NEOPLASM OF LOWER LOBE, LEFT BRONCHUS OR LOU COMPARISON: 05/31/2018 RADIONUCLIDE AND DOSE: 11.4 mCi F18 FDG The route of agent administration: Intravenous FASTING BLOOD SUGAR: 86 mg/dl CONTRAST TYPE AND DOSE: No CT contrast given. TECHNIQUE: Blood glucose level was verified. Above dose of FDG was injected intravenously. 2-D seg mented attenuation correction images were obtained from the base of the skull to the midthighs. Nonc ontrast CT images were obtained for attenuation correction and fusion with emission images. CT image s were performed without oral or intravenous contrast and are not sensitive for parenchymal lesions. A series of overlapping emission PET images were obtained. Images reviewed and manipulated at [facility] work station by the radiologist. Images stored on PACS. LIMITATIONS: None. FINDINGS: HEAD AND NECK: No areas of abnormal metabolic activity in the soft tissues of the head and neck. CHEST: Left lower lobe lesion 1.8 x 4.1 cm unchanged morphologically with SUV 6.8, previously 5.4. S tation 7 partially calcified lymph node with SUV 5.3, unchanged. ABDOMEN AND PELVIS: No areas of abnormal metabolic activity in the abdomen or pelvis. Expected physi ologic activity is present in the genitourinary system and bowel. PROXIMAL LOWER EXTREMITIES: No areas of abnormal metabolic activity in the soft tissues of the lower extremities. BONES: No abnormal metabolic activity in the visualized skeleton. ADDITIONAL CT FINDINGS: Hiatal hernia. Diverticulosis. OTHER: Blood pool 2.0 SUV. Background liver 2.7 SUV. IMPRESSION: Interval increase in SUV primary lesion. No significant change morphologically. TECHNICAL DOCUMENTATION: JOB ID: [id number] [employer]- All Rights Reserved Reading location - IP/workstation name: [email or web address]
== END ==
LOC: RAD 15:53
PROVIDERS: ATTEND Internal Medicine
DX: C34.32 Malignant neoplasm of lower lobe, left bronchus or lung (principal); K44.9 Diaphragmatic hernia without obstruction or gangrene; K57.90 Diverticulosis of intestine, part unspecified, without perforation or abscess without bleeding
CPT/HCPCS: 78815; A9552

== ENCOUNTER → 2019-05-16 | Outpatient (CLI) | payer MEDICARE, MEDICAID ==
--- NOTE | 2019-05-17 08:59 | RADIOLOGY REPORT (SQ) ---
EXAM DESCRIPTION: PET CT SKULL/THIGH COMPLETED DATE/TIME: 05/17/2019 5:25 am REASON FOR STUDY: C34.32 MALIGNANT NEOPLASM OF LOWER LOBE, LEFT BRONCHUS OR LUNG C34.32 MALIGNANT N EOPLASM OF LOWER LOBE, LEFT BRONCHUS OR LOU COMPARISON: 11/01/2018 and 05/31/2018. RADIONUCLIDE AND DOSE: 10 mCi F18 FDG The route of agent administration: Intravenous FASTING BLOOD SUGAR: 85 mg/dl CONTRAST TYPE AND DOSE: No CT contrast given. TECHNIQUE: Blood glucose level was verified. Above dose of FDG was injected intravenously. 2-D seg mented attenuation correction images were obtained from the base of the skull to the midthighs. Nonc ontrast CT images were obtained for attenuation correction and fusion with emission images. CT image s were performed without oral or intravenous contrast and are not sensitive for parenchymal lesions. A series of overlapping emission PET images were obtained. Images [facility] and manipulated [facility] by the radiologist. Images stored on PACS. LIMITATIONS: None. FINDINGS: HEAD AND NECK: No areas of abnormal metabolic activity in the soft tissues of the head and neck. CHEST: Mass in the left lower lobe is larger, maximum transverse measurements 2.7 x 4.0 cm. Previous measurement 1.8 x 4.1 cm. Mean SUV 13.55. Prior value 6.8. 1 cm partially calcified subcarinal ly mph node with current mean SUV 9.09. Prior value 5.3. Small lymph node in the right hilum measuring 6 mm (axial series 3, image 67). Mean SUV 2.32. Slightly more inferiorly is a small lymph node in the right hilum measuring 4 mm (axial series 3, image 74). Mean SUV 2.41. ABDOMEN AND PELVIS: No areas of abnormal metabolic activity in the abdomen or pelvis. Expected physi ologic activity is present in the genitourinary system and bowel. PROXIMAL LOWER EXTREMITIES: No areas of abnormal metabolic activity in the soft tissues of the lower extremities. BONES: No abnormal metabolic activity in the visualized skeleton. ADDITIONAL CT FINDINGS: Hiatal hernia. No additional significant findings on the noncontrast CT imag es. OTHER: Background blood pool activity mean SUV 1.57. Background liver activity mean SUV 2.54. No ot her significant findings. IMPRESSION: 1. THE MASS IN THE LEFT LOWER LOBE IS LARGER WITH HIGHER SUV VALUE, CONCERNING FOR PROGRESSION. ALSO THE PREVIOUSLY SEEN HYPERMETABOLIC SUBCARINAL LYMPH NODE HAS A HIGHER SUV VALUE WELL. IN ADDITIO N THERE ARE 2 VERY SMALL LYMPH NODES IN THE RIGHT HILUM WHICH HAVE BORDERLINE SUV VALUES, ROUGHLY EQU IVALENT TO THE BACKGROUND LIVER ACTIVITY. THESE ARE NONSPECIFIC BUT POTENTIALLY COULD INDICATE DEVEL OPING METASTASES AND NEED TO BE FOLLOWED. 2. NO EVIDENCE OF MALIGNANT INVOLVEMENT ELSEWHERE. NO OTHER SIGNIFICANT FINDINGS. TECHNICAL DOCUMENTATION: JOB ID: [id number] [employer]- All Rights Reserved Reading location - IP/workstation name: [email or web address]
== END ==
LOC: RAD 15:21
PROVIDERS: ATTEND Internal Medicine
DX: C34.32 Malignant neoplasm of lower lobe, left bronchus or lung (principal)
CPT/HCPCS: 78815; A9552

== ENCOUNTER → 2019-09-14 | Outpatient (CLI) | payer MEDICARE, MEDICAID ==
--- NOTE | 2019-09-15 13:12 | RADIOLOGY REPORT (SQ) ---
EXAM DESCRIPTION: PET CT SKULL/THIGH COMPLETED DATE/TIME: 09/14/2019 8:06 pm REASON FOR STUDY: C34.32 MALIGNANT NEOPLASM OF LOWER LOBE, LEFT BRONCHUS OR LUNG C34.32 MALIGNANT N EOPLASM OF LOWER LOBE, LEFT BRONCHUS OR LOU COMPARISON: PET from 05/16/2019. RADIONUCLIDE AND DOSE: 9.6 mCi F18 FDG The route of agent administration: Intravenous FASTING BLOOD SUGAR: 87 mg/dl CONTRAST TYPE AND DOSE: No CT contrast given. TECHNIQUE: Blood glucose level was verified. Above dose of FDG was injected intravenously. 2-D seg mented attenuation correction images were obtained from the base of the skull to the midthighs. Nonc ontrast CT images were obtained for attenuation correction and fusion with emission images. CT image s were performed without oral or intravenous contrast and are not sensitive for parenchymal lesions. A series of overlapping emission PET images were obtained. [facility] by the radiologist. Images stored on PACS. LIMITATIONS: None. FINDINGS: HEAD AND NECK: No areas of abnormal metabolic activity in the soft tissues of the head and neck. CHEST: The maximum transverse diameter of the mass in the left lower lobe that extends to the hilum a nd contains fiducial markers is unchanged and it measures 3.7 cm. The intensity of FDG uptake within the mass is also unchanged with a maximum SUV of 17.2 (average liver SUV of 2.3; prior average SUV o f 2.6) compared to 17.9 on the prior PET. There is a hypermetabolic partially calcified subcarinal l ymph node that measures 8 mm in short axis diameter ; the intensity of FDG uptake within the node is relatively unchanged (maximum SUV of 9 compared to 9.9 on the prior PET). There are prominent right upper paratracheal and right lower paratracheal lymph nodes that are stable in size from the prior PE T and demonstrate mild FDG uptake with maximum SUVs in the range of 3 to 3.3; the intensity of FDG up take within these nodes is unchanged. ABDOMEN AND PELVIS: The liver demonstrates heterogeneous non focal FDG uptake with an average SUV of 2.3. There is expected physiologic activity throughout the gastrointestinal and genitourinary tracts . No areas of abnormal metabolic activity are identified in the abdomen and pelvis. PROXIMAL LOWER EXTREMITIES: No areas of abnormal metabolic activity in the soft tissues of the lower extremities. BONES: No areas of abnormal metabolic activity in the imaged axial and appendicular skeleton ADDITIONAL CT FINDINGS: The paramediastinal area of consolidation in the left upper lobe with air bro nchograms is unchanged. OTHER: No other findings. IMPRESSION: Stable metabolic activity within the mass in the left lower lobe and with and within a s ub- carinal lymph node. TECHNICAL DOCUMENTATION: JOB ID: [id number] [employer]- All Rights Reserved Reading location - IP/workstation name: [email or web address]
== END ==
LOC: RAD 11:18
PROVIDERS: ATTEND Internal Medicine
DX: C34.32 Malignant neoplasm of lower lobe, left bronchus or lung (principal)
CPT/HCPCS: 78815; A9552

== ENCOUNTER → 2019-10-14 | Outpatient (CLI) | payer MEDICARE, MEDICAID ==
--- NOTE | 2019-10-14 19:40 | RADIOLOGY REPORT (SQ) ---
EXAM DESCRIPTION: MRA HEAD WITHOUT COMPLETED DATE/TIME: 10/14/2019 6:27 pm REASON FOR STUDY: C34.32 MALIGNANT NEOPLASM OF LOWER LOBE, LEFT BRONCHUS OR LUNG C34.32 MALIGNANT N EOPLASM OF LOWER LOBE, LEFT BRONCHUS OR LOU R56.9 UNSPECIFIED CONVULSIONS I67.1 CEREBRAL ANEURYSM, N ONRUPTURED COMPARISON: None. TECHNIQUE: Axial 3-D yrqm-vg-wjcsgy acquisition imaging performed through the brain in the area of t he [place] of [place]. Images reformatted using 3-D MIPS. LIMITATIONS: None. FINDINGS: SOURCE IMAGES: No unexpected findings on source images. No large masses. 3-D MIP: No aneurysm. No occlusions. No significant stenosis. OTHER: No other significant finding. IMPRESSION: NORMAL MRA OF [place]. TECHNICAL DOCUMENTATION: JOB ID: [id number] 2010 [employer]- All Rights Reserved Reading location - IP/workstation name: [email or web address]
--- NOTE | 2019-10-14 19:51 | RADIOLOGY REPORT (SQ) ---
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 TECHNIQUE: Multiplanar imaging includes noncontrasted T1, T2, FLAIR, diffusion with ADC map and post gadolinium contrast T1 sequences. Images stored on PACS. CONTRAST TYPE AND DOSE: 10 mL Dotare[employer]. RENAL FUNCTION: Not indicated. ACR Type II contrast agent associated with few, if any, unconfounded cases of NSF LIMITATIONS: None. FINDINGS: ANATOMY: No anomalies. Normal vascular flow voids. Pituitary fossa normal. CSF SPACES: Normal in size and contour. No hemorrhage. CEREBRUM: There is a 6 mm enhancing lesion in the right occipital lobe. There is a 10 mm enhancing l esion in the medial aspect of the right occipital lobe. There is a 7 mm enhancing lesion in the left frontal lobe. There is an 11 mm enhancing lesion the left posterior parietal lobe. There is edema associated with these lesions, most prominently in the left parietal lobe. There is also edema in th e right occipital lobe and in the left frontal lobe. POSTERIOR FOSSA: No signal alteration. No hemorrhage. No edema, masses, or mass effect. Internal meño tory canals, cerebellopontine angles, mastoids normal. No enhancing lesions. No abnormal enhancement post contrast. DIFFUSION IMAGING: No significant abnormal diffusion. ORBITS: No masses. Globes normal. PARANASAL SINUSES: No fluid levels. Mucosa normal. OTHER: No other significant finding. IMPRESSION: There are 4 well-defined enhancing metastatic lesions in the brain as described. There is associated edema that is most prominent in the left posterior parietal lobe. EVIDENCE OF ACUTE STROKE: NO. TECHNICAL DOCUMENTATION: JOB ID: [id number] 2010 [employer]- All Rights Reserved Reading location - IP/workstation name: [email or web address]
== END ==
LOC: RAD 17:00
PROVIDERS: ATTEND Internal Medicine
DX: R56.9 Unspecified convulsions (principal); C34.32 Malignant neoplasm of lower lobe, left bronchus or lung; C79.31 Secondary malignant neoplasm of brain; I67.1 Cerebral aneurysm, nonruptured
CPT/HCPCS: 82565; 70553; 70544; A9576

== ENCOUNTER → 2019-11-27 | Outpatient (CLI) | payer MEDICARE, MEDICAID ==
--- NOTE | 2019-11-27 16:30 | RADIOLOGY REPORT (SQ) ---
EXAM DESCRIPTION: CHEST 2 VIEWS IMAGES COMPLETED DATE/TIME: 11/27/2019 4:14 pm REASON FOR STUDY: SOB COMPARISON: 02/03/2017. PET-CT 09/15/2019. TECHNIQUE: Frontal and lateral radiographic views of the chest acquired. NUMBER OF VIEWS: Two view. LIMITATIONS: None. FINDINGS: LUNGS AND PLEURA: Fairly extensive bilateral lower lung field interstitial changes. Retic ular opacities diffusely with slightly confluent density in the left base. Trace left pleural reacti on may be present. No pneumothorax. No discrete nodules or masses. MEDIASTINUM AND HILAR STRUCTURES: Stable contours. HEART AND VASCULAR STRUCTURES: Stable heart size. BONES: No acute findings. HARDWARE: None in the chest. OTHER: No other significant finding. IMPRESSION: 1. Interstitial changes throughout the lower lung leonard, left greater than right. Differential incl udes interstitial pneumonia, viral pneumonitis, interstitial edema. No such interstitial changes are suggested on September PET-CT, findings look new since then. TECHNICAL DOCUMENTATION: JOB ID: [id number] 2010 [employer]- All Rights Reserved Reading location - IP/workstation name: [email or web address]
== END ==
LOC: RAD 15:59
PROVIDERS: ATTEND Specialist
DX: R06.02 Shortness of breath (principal); R06.09 Other forms of dyspnea; R09.02 Hypoxemia; D02.20 Carcinoma in situ of unspecified bronchus and lung
CPT/HCPCS: 71046

== ENCOUNTER → 2020-01-04 | Outpatient (CLI) | payer MEDICARE, MEDICAID ==
--- NOTE | 2020-01-04 14:32 | RADIOLOGY REPORT (SQ) ---
EXAM DESCRIPTION: PET CT SKULL/THIGH IMAGES COMPLETED DATE/TIME: 01/04/2020 10:44 am REASON FOR STUDY: MALIGNANT NEOPLASM OF LOWER LOBE, LEFT BRONCHUS OR LUNG (C34.32) C34.32 MALIGNANT NEOPLASM OF LOWER LOBE, LEFT BRONCHUS OR LOU COMPARISON: PET from 09/14/2019. RADIONUCLIDE AND DOSE: 9.57 mCi F18 FDG The route of agent administration: Intravenous FASTING BLOOD SUGAR: 59 mg/dl CONTRAST TYPE AND DOSE: No CT contrast given. TECHNIQUE: Blood glucose level was verified. Above dose of FDG was injected intravenously. 2-D seg mented attenuation correction images were obtained from the base of the skull to the midthighs. Nonc ontrast CT images were obtained for attenuation correction and fusion with emission images. CT image s were performed without oral or intravenous contrast and are not sensitive for parenchymal lesions. A series of overlapping emission PET images were obtained. Images reviewed and manipulated at [facility] [employer] work station by the radiologist. Images stored on PACS. LIMITATIONS: None. FINDINGS: HEAD AND NECK: No areas of abnormal metabolic activity in the soft tissues of the head and neck. CHEST: The 6 mm short axis right highest mediastinal lymph node on image 52 of series 3 demonstrates minimal FDG uptake with a maximum SUV of 2.8. The 7 mm AP window and right lower paratracheal lymph nodes on images 64 and 66 of series 3 are unchanged in size and demonstrate no abnormal FDG uptake. There increased FDG uptake in the sub- carinal region that extends into the hilum with a maximum SUV of 6.4. The maximum AP diameter of the dominant mass that extends from the left hilum into the left lower lobe has increased and it measures 3.4 cm compared to 3.1 on the prior PET ; the intensity of F DG uptake within the mass has decreased with a maximum SUV of 13.1 compared to 17.2 on the prior PET, however it is possible that direct comparison of maximum SUVs is limited given the difference in the average SUVs between the PETs. There are several new diaphragmatic implants that vary in size; the se include the 8 x 7 mm nodule on image 97 of series 3 (maximum SUV of 5.6), the 11 mm short axis nod ule on image 94 of series 3 (maximum SUV of 5.2), and the 13 x 5 mm nodule on image 104 of series 3 ( maximum SUV is 6.8). The consolidative opacities in the left upper lobe associated with mild bronchiectasis have increased and demonstrate mild FDG uptake with a maximum SUV of 3.6. ABDOMEN AND PELVIS: The liver demonstrates homogeneous FDG uptake with an average SUV of 1.6 (compare d to 2.3 on the prior PET). There is focal elevated FDG uptake within the right adrenal gland with a maximum SUV of 4.1. There is also focal increased FDG uptake within a 14 x 11 mm omental implant (i mage 131 of series 3) with a maximum SUV of 5.6. Otherwise, there is expected physiologic activity t hroughout the gastrointestinal and genitourinary tracts. PROXIMAL LOWER EXTREMITIES: No areas of abnormal metabolic activity in the soft tissues of the lower extremities. BONES: Focal increase FDG uptake within the left ilium (maximum SUV of 3.6) that on the CT correspond s to an area of subtle sclerosis. ADDITIONAL CT FINDINGS: No acute findings. OTHER: No other findings. IMPRESSION: Findings as described above are consistent with progression of disease given the new hyp ermetabolic diaphragmatic, omental, right adrenal and osseous metastases as detailed above. The cons olidative opacities in the left upper lobe associated with mild bronchiectasis that have increased fr om the prior PET are nonspecific and could represent postradiation pneumonitis, pneumonia, or lymphan gitic carcinomatosis. TECHNICAL DOCUMENTATION: JOB ID: [id number] 2010 [employer]- All Rights Reserved Reading location - IP/workstation name: [email or web address]
== END ==
LOC: RAD 07:45
PROVIDERS: ATTEND Internal Medicine
DX: C34.32 Malignant neoplasm of lower lobe, left bronchus or lung (principal)
CPT/HCPCS: 78815; A9552

== ENCOUNTER → 2020-03-28 | Outpatient (CLI) | payer MEDICARE, MEDICAID ==
--- NOTE | 2020-03-28 13:05 | RADIOLOGY REPORT (SQ) ---
EXAM DESCRIPTION: PET CT SKULL/THIGH IMAGES COMPLETED DATE/TIME: 03/28/2020 11:23 am REASON FOR STUDY: C34.32 MALIGNANT NEOPLASM OF LOWER LOBE, LEFT BRONCHUS OR LUNG C34.32 MALIGNANT N EOPLASM OF LOWER LOBE, LEFT BRONCHUS OR LOU COMPARISON: 01/04/2020 RADIONUCLIDE AND DOSE: 9.9 mCi F18 FDG The route of agent administration: Intravenous FASTING BLOOD SUGAR: 51 mg/dl CONTRAST TYPE AND DOSE: No CT contrast given. TECHNIQUE: Blood glucose level was verified. Above dose of FDG was injected intravenously. 2-D seg mented attenuation correction images were obtained from the base of the skull to the midthighs. Nonc ontrast CT images were obtained for attenuation correction and fusion with emission images. CT image s were performed without oral or intravenous contrast and are not sensitive for parenchymal lesions. A series of overlapping emission PET images were obtained. Images reviewed and manipulated at [facility] work station by the radiologist. Images stored on PACS. LIMITATIONS: None. FINDINGS: HEAD AND NECK: No areas of abnormal metabolic activity in the soft tissues of the head and neck. CHEST: Rind of soft tissue in the left hilum and left lower lobe maximum SUV 5.8, previously 13 SUV. Morphologically, the maximum diameter adjacent to the radiation markers 2.4 cm, previously 3.4 cm. ABDOMEN AND PELVIS: No areas of abnormal metabolic activity in the abdomen or pelvis. Expected physi ologic activity is present in the genitourinary system and bowel. PROXIMAL LOWER EXTREMITIES: No areas of abnormal metabolic activity in the soft tissues of the lower extremities. BONES: No abnormal metabolic activity in the visualized skeleton. ADDITIONAL CT FINDINGS: Small left pleural effusion. Appropriate position of left-sided port. OTHER: Blood pool 1.5 SUV. Liver background 2.4 SUV. IMPRESSION: Favorable response to therapy. Increased metabolic activity is confined to the primary lung mass. TECHNICAL DOCUMENTATION: JOB ID: [id number] 2010 [employer]- All Rights Reserved Reading location - IP/workstation name: [email or web address]
== END ==
LOC: RAD 08:44
PROVIDERS: ATTEND Internal Medicine
DX: C34.32 Malignant neoplasm of lower lobe, left bronchus or lung (principal)
CPT/HCPCS: 78815; A9552

== ENCOUNTER → 2020-05-22 | Outpatient (CLI) | payer MEDICARE, MEDICAID ==
[~2020-05-22] MED LIST changes: -FERUMOXYTOL 510 MG in NORMAL SALINE 100 ML IV PRN; +MAGNESIUM SULFATE/D5W 2 GM/200 ML RTUPB IV ONE; -NORMAL SALINE 250 ML IV PRN
[2020-05-22] MEDS: MAGNESIUM SULFATE 1 GM/D5W 100 ML IV SCH ×2 (15:00→16:00)
[2020-05-22] MEDS: CALCIUM GLUCONATE 1 GM/NS 50 ML RTU IV SCH ×2 (17:00→18:00)
== END ==
LOC: ASU 14:43
PROVIDERS: ATTEND Internal Medicine
DX: E83.42 Hypomagnesemia (principal)
CPT/HCPCS: 96365; 96366; 96367; J3475; J1642; J0610

== ENCOUNTER → 2020-05-22 | Outpatient (CLI) | payer MEDICARE, MEDICAID ==
--- NOTE | 2020-05-22 14:55 | RADIOLOGY REPORT (SQ) ---
EXAM DESCRIPTION: MRI HEAD COMBO IMAGES COMPLETED DATE/TIME: 05/22/2020 2:38 pm REASON FOR STUDY: C34.32 MALIGNANT NEOPLASM OF LOWER LOBE, LEFT BRONCHUS OR LUNG C34.32 MALIGNANT N EOPLASM OF LOWER LOBE, LEFT BRONCHUS OR LOU G45.9 TRANSIENT CEREBRAL ISCHEMIC ATTACK, UNSPECIFIED COMPARISON: 10/14/2019. TECHNIQUE: Multiplanar imaging includes noncontrasted T1, T2, FLAIR, diffusion with ADC map and post gadolinium contrast T1 sequences. Images stored on PACS. CONTRAST TYPE AND DOSE: 10 mL Proh[employer]. RENAL FUNCTION: Not indicated. ACR Type II contrast agent associated with few, if any, unconfounded cases of NSF LIMITATIONS: This study is significantly limited by motion artifact. Particularly evident on post c ontrast imaging. This is up to marked. FINDINGS: ANATOMY: No anomalies. Normal vascular flow voids. Pituitary fossa normal. CSF SPACES: Normal in size and contour. No hemorrhage. CEREBRUM: There appears to be some improvement in lesions, even allowing for significantly limiting m otion artifact. The left frontal lesion looks smaller, probably close to 8 mm. Mild persistent leela onal edema. The left parietal parafalcine lesion is very difficult to see, faintly hyperintense T1 w ith slight enhancement, also likely 8 mm. The right occipital lobe lesions are not reliably identifi ed on post contrast imaging, subtle artifact noted on the gradient axial sequence persists. POSTERIOR FOSSA: No signal alteration. No hemorrhage. No edema, masses, or mass effect. Internal meño tory canals, cerebellopontine angles, mastoids normal. No enhancing lesions. No abnormal enhancement post contrast. DIFFUSION IMAGING: Negative for acute or subacute infarction. ORBITS: No masses. Globes normal. PARANASAL SINUSES: No fluid levels. Mucosa normal. OTHER: No other significant finding. IMPRESSION: Improved lesions as above. Right occipital lesions are poorly seen. Left-sided lesions look smaller, less conspicuous. It should be noted that this study is significantly limited by sofia on artifact however. EVIDENCE OF ACUTE STROKE: NO. TECHNICAL DOCUMENTATION: JOB ID: [id number] 2010 [employer]- All Rights Reserved Reading location - IP/workstation name: [email or web address]
--- NOTE | 2020-05-22 15:41 | RADIOLOGY REPORT (SQ) ---
EXAM DESCRIPTION: MRA HEAD WITHOUT IMAGES COMPLETED DATE/TIME: 05/22/2020 2:38 pm REASON FOR STUDY: C34.32 MALIGNANT NEOPLASM OF LOWER LOBE, LEFT BRONCHUS OR LUNG C34.32 MALIGNANT N EOPLASM OF LOWER LOBE, LEFT BRONCHUS OR OLU G45.9 TRANSIENT CEREBRAL ISCHEMIC ATTACK, UNSPECIFIED COMPARISON: 10/14/2019. TECHNIQUE: Axial 3-D vwga-nt-hgogda acquisition imaging performed through the brain in the area of t he [place] of [place]. Images reformatted using 3-D MIPS. LIMITATIONS: This study is significantly limited by motion artifact. FINDINGS: SOURCE IMAGES: No unexpected findings on source images. No large masses. 3-D MIP: No aneurysm. No occlusions. No significant stenosis. OTHER: No other significant finding. IMPRESSION: Limiting motion artifact. No evidence of arterial occlusion or aneurysm. TECHNICAL DOCUMENTATION: JOB ID: [id number] 2010 [employer]- All Rights Reserved Reading location - IP/workstation name: [email or web address]
== END ==
LOC: RAD 12:52
PROVIDERS: ATTEND Internal Medicine
DX: C34.32 Malignant neoplasm of lower lobe, left bronchus or lung (principal); G45.9 Transient cerebral ischemic attack, unspecified
CPT/HCPCS: 70553; 70544; A9576

== ENCOUNTER 2020-05-23 19:26 | Inpatient (IN) | payer MEDICARE, MEDICAID ==
--- NOTE | 2020-05-23 19:58 | ER Document Report ---
ED General - General Stated Complaint: WEAKNESS Time Seen by Provider: 05/23/20 19:35 TRAVEL OUTSIDE OF THE [place] 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 Was eating well and functioning well until this am. Pt is mother of Dr. Lela Rodas. Dr Brandon Grant is oncologist and Dr. Julian has graciously accepted the pt for further management. No fever or travel or covid exposure and no chest pain or sob. - Related Data Allergies/Adverse Reactions: Penicillins Allergy (Unknown, Verified 06/18/13 12:21) Sulfa (Sulfonamide Antibiotics) Allergy (Unknown, Verified 06/18/13 12:21) Past Medical History - General Information source: Patient, Relative - Social History Smoking Status: Unknown if Ever Smoked Family History: Reviewed & Not Pertinent - Past Medical History Cardiac Medical History: Reports: Hx Hypertension Denies: Hx Heart Attack Pulmonary Medical History: Denies: Hx Asthma, Hx Tuberculosis Neurological Medical History: Denies: Hx Cerebrovascular Accident, Hx Seizures Renal/ Medical History: Denies: Hx Peritoneal Dialysis GI Medical History: Denies: Hx Hepatitis, Hx Hiatal Hernia, Hx Ulcer Infectious Medical History: Denies: Hx Hepatitis Past Surgical History: Denies: Hx Mastectomy, Hx Open Heart Surgery, Hx Pacemaker - Immunizations Hx Diphtheria, Pertussis, Tetanus Vaccination: No Review of Systems - Review of Systems Constitutional: Weakness EENT: No symptoms reported Cardiovascular: No symptoms reported Respiratory: No symptoms reported Gastrointestinal: No symptoms reported Genitourinary: No symptoms reported Female Genitourinary: No symptoms reported Musculoskeletal: No symptoms reported Skin: No symptoms reported Hematologic/Lymphatic: No symptoms reported Neurological/Psychological: See HPI, Tremor Physical Exam - Vital signs Interpretation: Normal - General General appearance: Appears well, Alert - HEENT Head: Normocephalic, Atraumatic Eyes: Normal Pupils: PERRL - Respiratory Respiratory status: No respiratory distress Chest status: Nontender Breath sounds: Normal Chest palpation: Normal - Cardiovascular Rhythm: Regular Heart sounds: Normal auscultation Murmur: No - Abdominal Inspection: Normal Distension: No distension Bowel sounds: Normal Tenderness: Nontender Organomegaly: No organomegaly - Back Back: Normal, Nontender - Extremities General upper extremity: Normal inspection, Nontender, Normal color, Normal ROM, Normal temperature General lower extremity: Normal inspection, Nontender, Normal color, Normal ROM, Normal temperature, Normal weight bearing. No: Keanu's sign - Neurological Neuro grossly intact: Yes Cognition: Normal Orientation: AAOx4 [place] Coma Scale Eye Opening: Spontaneous [place] Coma Scale Verbal: Oriented [place] Coma Scale Motor: Obeys Commands [place] Coma Scale Total: 15 - Psychological Associated symptoms: Normal affect, Normal mood - Skin Skin Temperature: Warm Skin Moisture: Dry Skin Color: Normal Course - Re-evaluation Re-evalutation: 05/23/20 19:57 MDM 74 year old with right hemiparesis, known stage 4 lung cancer and weakness today. Tremendous leukocytosis is noted and pt has been accepted graciously by Dr. Julian for admit. - Laboratory Result Diagrams: 05/23/20 19:52 05/23/20 19:52 Discharge - Discharge Clinical Impression: Hemiparesis Qualifiers: Hemiparesis etiology: unspecified Hemiparesis laterality: right dominant side Qualified Code(s): G81.91 - Hemiplegia, unspecified affecting right dominant side Leukocytosis, unspecified Qualifiers: Leukocytosis type: unspecified Qualified Code(s): D72.829 - Elevated white blood cell count, unspecified Lung cancer Qualifiers: Laterality: left Lung location: unspecified part of lung Qualified Code(s): C34.92 - Malignant neoplasm of unspecified part of left bronchus or lung Condition: Stable Disposition: ADMITTED INPATIENT Admitting Provider: Bro (Hospitalist) Unit Admitted: Telemetry
[2020-05-23 20:20] LABS: HEMATOCRIT 31.5 % (36.0-47.0); HEMOGLOBIN 10.2 g/dL (12.0-15.5); MEAN CORPUSCULAR HEMOGLOBIN 29.3 pg (27.0-33.4); MEAN CORPUSCULAR HGB CONC 32.3 g/dL (32.0-36.0); MEAN CORPUSCULAR VOLUME 91 fl (80-97); PLATELET COUNT 429 10^3/uL (150-450); RED BLOOD COUNT 3.47 10^6/uL (3.72-5.28); RED CELL DISTRIBUTION WIDTH 16.3 % (11.5-14.0)
[2020-05-23 20:23] LABS: INTERNATIONAL RATION (INR) 0.96
[2020-05-23 20:34] LABS: ALKALINE PHOSPHATASE 338 U/L (38-126); ANION GAP 7 (5-19); ASPARTATE AMINO TRANSFERASE 128 U/L (14-36); BILIRUBIN,DIRECT 0.4 mg/dL (0.0-0.4); BILIRUBIN,TOTAL 0.4 mg/dL (0.2-1.3); BLOOD UREA NITROGEN 19 mg/dL (7-20); CALCIUM 8.8 mg/dL (8.4-10.2); CARBON DIOXIDE 23 mmol/L (22-30); CHLORIDE 96 mmol/L (98-107); GLUCOSE 130 mg/dL (75-110); POTASSIUM 4.8 mmol/L (3.6-5.0); TOTAL PROTEIN 5.5 g/dL (6.3-8.2)
[2020-05-23 20:41] LABS: APPEARANCE,URINE CLEAR; BILIRUBIN,URINE NEGATIVE (NEGATIVE); COLOR,URINE YELLOW; GLUCOSE, URINE NEGATIVE (NEGATIVE); KETONES,URINE NEGATIVE (NEGATIVE); LEUKOCYTE ESTERASE,URINE NEGATIVE (NEGATIVE); NITRITE,URINE NEGATIVE (NEGATIVE); PROTEIN,URINE NEGATIVE (NEGATIVE); URINE SPECIFIC GRAVITY 1.011; UROBILINOGEN,URINE NEGATIVE mg/dL (<2.0)
[2020-05-23 20:49] LABS: ABSOLUTE LYMPHOCYTES# (MANUAL) 6.2 10^3/uL (0.5-4.7); ABSOLUTE MONOCYTES # (MANUAL) 0.4 10^3/uL (0.1-1.4); BAND NEUTROPHILS % (MANUAL) 1 % (3-5); BASOPHILS % (MANUAL) 0 % (0-2); EOSINOPHILS % (MANUAL) 0 % (0-6); LYMPHOCYTES % (MANUAL) 16 % (13-45); MONOCYTES % (MANUAL) 1 % (3-13); SEGMENTED NEUTROPHILS % (MAN) 82 % (42-78); TOTAL CELLS COUNTED 100
[2020-05-23 20:50] LABS: ANISOCYTOSIS 1+; PLATELET COMMENT ADEQUATE
[2020-05-23] MEDS ORDERED: IPRATROPIUM/ALBUTEROL 0.5-2.5 MG/3 ML AMPUL NEB PRN (21:00)
[2020-05-23] MEDS ORDERED: ONDANSETRON HCL INJ/PF 4 MG/2 ML SDV IV PRN (21:00)
[2020-05-23] MEDS ORDERED: TEMAZEPAM 7.5 MG CAPSULE PO PRN (21:00)
[2020-05-23] MEDS ORDERED: ACETAMINOPHEN 325 MG TABLET PO PRN (21:00)
[2020-05-23] MEDS ORDERED: NORMAL SALINE 1000 ML 1,000 ML IV PRN (21:00)
[2020-05-23] MEDS ORDERED: PROMETHAZINE HCL INJ 25 MG/1 ML VIAL IV PRN (21:00)
[2020-05-23] MEDS ORDERED: MAGNESIUM HYDROXIDE SUSP 30 ML UDCUP PO PRN (21:00)
[2020-05-23] MEDS ORDERED: LORAZEPAM 0.5 MG TABLET PO PRN (21:10)
[2020-05-23] MEDS: FAMOTIDINE 20 MG TABLET PO SCH (21:53)
[2020-05-23] MEDS: LEVETIRACETAM 500 MG/NACL-ISO 500 MG/100 ML RTUPB IV SCH (21:57)
--- NOTE | 2020-05-23 22:57 | PDOC H&P ---
History of Present Illness Admission Date/PCP: 05/23/20 20:08 KHRIS TIDWELL MD History of Present Illness: ZIGGY TIDWELL is a 74 year old female past medical history of hypertension, hypothyroidism, chronic hyponatremia, anxiety, CLL and stage IV lung cancer with known metastasis to brain status post chemoradiation, recently restarted on chemotherapy, currently on fifth cycle, last chemotherapy 2 weeks ago, who was sent to ED by her oncologist Dr. Almonte for evaluation of generalized weakness, right upper and lower extremity weakness, altered mental status, and electrolyte abnormalities. Source of history is Dr. Tidwell her son who is present in the room, as per son patient was at her baseline ambulating with the help of her and p.o. tolerant, but recently patient has been noted to being more altered,having very low appetite with generalized weakness and right-sided upper and lower extremity weakness and involuntary contractions. Patient has not had any exposure to COVID, is not complaining of any nausea, vomiting, diarrhea, constipation, fever, chills, chest pain, shortness of breath. Initially it was thought that her right upper and lower extremity weakness and altered mental status could be related to CVA or worsening metastatic brain lesion and was started on dexamethasone but on 05/22/2020 MRI/MRA head was negative for any acute stroke or any new lesions. Patient also had a PET scan on 03/28/2020 comparison on 01/04/2020 which showed favorable response to therapy, increased metabolic activity confined to the primary lung mass. Patient had outpatient CBC CMP which showed chronic hyponatremia, hypomagnesemia and hypocalcemia, electrolytes were repleted and patient was sent home. As patient did not improve much she was brought to ED today. In ED she was noted to have afebrile, normotensive, and SPO2 of 100% on room air. WBC of 39,000 up from [address]1191 on 10/29/2018. Sodium 126.0 with baseline of 124-132 and elevated LFTs, otherwise lactic acid, TSH, calcium and magnesium all within normal limits. Patient does not have any urinary retention but when in ED a Ruvalcaba patient was inserted she produced about 1700 cc of urine. Urinalysis was negative for any infection. On my encounter patient is comfortably resting in bed, in no apparent distress, very pleasant and cooperative with physical examination, she has visible right upper and lower extremity involuntary contraction,unfortunately does not communicate much due to language barrier, as per Dr. Tidwell her son patient has improved since being admitted to ED. Dr. Tidwell her son who was present in the room also mentions that her mother CODE STATUS is DNR/DNI. I was able to talk to Dr. Almonte her oncologist who think patient will only need rehydration and correction of her electrolyte abnormalities and will not need any antibiotics and there is no sign infection even though she has elevated leukocytosis which explained by her chronic CLL p.o. dexamethasone which was started recently. No further imaging recommended. Past Medical History Cardiac Medical History: Reports: Hypertension Denies: Myocardial Infarction Pulmonary Medical History: Denies: Asthma, Tuberculosis Neurological Medical History: Denies: Seizures GI Medical History: Denies: Hepatitis, Hiatal Hernia Psychiatric Medical History: Denies: Depression Hematology: Reports: Anemia Denies: Sickle Cell Disease Past Surgical History Past Surgical History: Denies: Amputation, Mastectomy, Pacemaker Social History Smoking Status: Unknown if Ever Smoked Family History Family History: Reviewed & Not Pertinent Parental Family History Reviewed: Yes Children Family History Reviewed: Yes Sibling(s) Family History Reviewed.: Yes Medication/Allergy Home Medications: Atenolol [Tenormin 50 Mg Tablet] 50 mg PO DAILY 06/18/13 Cholecalciferol (Vitamin D3) [Vitamin D3] 1,250 mcg PO MO@1000 05/23/20 Dexamethasone [Decadron 4 Mg Tablet] 4 mg PO DAILY 05/23/20 Esomeprazole Magnesium 40 mg PO DAILY 05/23/20 Famotidine [Pepcid 20 mg Tablet] 20 mg PO QPM 05/23/20 Folic Acid [Folvite 1 mg Tablet] 1 mg PO DAILY 05/23/20 Levetiracetam [Keppra 500 mg Tablet] 500 mg PO Q12 05/23/20 Levothyroxine Sodium [Synthroid 0.1 mg Tablet] 0.1 mg PO Q6AM 05/23/20 Lorazepam [Ativan 0.5 mg Tablet] 0.5 mg PO Q8HP PRN 05/23/20 Allergies/Adverse Reactions: Penicillins Allergy (Unknown, Verified 06/18/13 12:21) Sulfa (Sulfonamide Antibiotics) Allergy (Unknown, Verified 06/18/13 12:21) Review of Systems Review of Systems: as per hpi Physical Exam Vital Signs: Temp Pulse Resp BP Pulse Ox 98.2 F 89 22 H 177/81 H 100 05/23/20 21:11 05/23/20 21:11 05/23/20 21:11 05/23/20 21:11 05/23/20 21:11 Intake & Output 05/22/20 05/23/20 05/24/20 06:59 06:59 06:59 Weight 38.5 kg General appearance: PRESENT: no acute distress, thin Head exam: PRESENT: atraumatic Respiratory exam: PRESENT: clear to auscultation neelima. ABSENT: rales, rhonchi, wheezes Cardiovascular exam: PRESENT: RRR. ABSENT: diastolic murmur, rubs, systolic murmur GI/Abdominal exam: PRESENT: normal bowel sounds, soft. ABSENT: distended, guarding, mass, organolmegaly, rebound, tenderness Gentrourinary exam: PRESENT: indwelling catheter Neurological exam: PRESENT: alert, awake, CN II-XII grossly intact, motor sensory deficit - Right upper and lower extremity weakness. Involuntary right upper lower extremity contractures., other - Limited neuro examination due to language barrier and mental status. Skin exam: PRESENT: dry, intact, warm, other - Right upper extremity ecc hymosis.. ABSENT: cyanosis, rash Results Laboratory Results: 05/23/20 19:52 05/23/20 19:52 05/23/20 05/23/20 05/23/20 19:52 19:52 19:52 WBC 39.0 H* RBC 3.47 L Hgb 10.2 L Hct 31.5 L MCV 91 MCH 29.3 MCHC 32.3 RDW 16.3 H Plt Count 429 Seg Neutrophils % Not Reportable Sodium 126.0 L Potassium 4.8 Chloride 96 L Carbon Dioxide 23 Anion Gap 7 BUN 19 Creatinine 0.81 Est GFR ( Amer) > 60 Glucose 130 H Lactic Acid 1.6 Calcium 8.8 Magnesium 2.2 Total Bilirubin 0.4 AST 128 H Alkaline Phosphatase 338 H Total Protein 5.5 L Albumin 3.0 L TSH Urine Color Urine Appearance Urine pH Ur Specific [place] Urine Protein Urine Glucose (UA) Urine Ketones Urine Blood Urine Nitrite Ur Leukocyte Esterase Urine WBC (Auto) Urine RBC (Auto) 05/23/20 05/23/20 19:55 20:11 WBC RBC Hgb Hct MCV MCH MCHC RDW Plt Count Seg Neutrophils % Sodium Potassium Chloride Carbon Dioxide Anion Gap BUN Creatinine Est GFR ( Amer) Glucose Lactic Acid Calcium Magnesium Total Bilirubin AST Alkaline Phosphatase Total Protein Albumin TSH 1.05 Urine Color YELLOW Urine Appearance CLEAR Urine pH 6.0 Ur Specific [place] 1.011 Urine Protein NEGATIVE Urine Glucose (UA) NEGATIVE Urine Ketones NEGATIVE Urine Blood NEGATIVE Urine Nitrite NEGATIVE Ur Leukocyte Esterase NEGATIVE Urine WBC (Auto) 1 Urine RBC (Auto) 0 Assessment and Plan - Diagnosis (1) Hemiparesis Qualifiers: Hemiparesis etiology: unspecified Hemiparesis laterality: right dominant side Qualified Code(s): G81.91 - Hemiplegia, unspecified affecting right dominant side Is this a current diagnosis for this admission?: Yes Plan: With known metastatic brain lesions which as per MRA MRI on 05/22/2020 did not show any progression or new lesions. MRI MRA head negative for any acute stroke. PET scan and 03/20/2020 stable compared to 12/2019. Lesion localized in the lung. Admit to telemetry, neurochecks, antiplatelets, OT ST PT. Optimize BP, monitor vitals. (2) Stage IV squamous cell carcinoma of lung Qualifiers: Laterality: unspecified laterality Qualified Code(s): C34.90 - Malignant neoplasm of unspecified part of unspecified bronchus or lung Is this a current diagnosis for this admission?: Yes Plan: Recurrent. Status post chemoradiation. Currently on chemotherapy for cycle. Last chemotherapy 2 weeks ago. Followed by Dr. Almonte as outpatient. Oncology consulted. Follow-up recommendations. (3) Hypertension Is this a current diagnosis for this admission?: Yes Plan: Seems dehydrated. Mildly hypertensive. Continue fluid resuscitation guided by volume status. Resume home meds. PRN hydralazine. Adjust meds as needed. (4) Anorexia Is this a current diagnosis for this admission?: Yes Plan: Likely related to underlying stage IV lung cancer. Encourage p.o. intake, denies any dysphagia or odynophagia. Consider appetite stimulant. Consult registered dietitian. (5) Chronic hyponatremia Is this a current diagnosis for this admission?: Yes Plan: Chronic hyponatremia. Likely due to underlying malignancy. Sodium seems to be at baseline. Continue normal saline. Monitor sodium level. Monitor for seizure. (6) Generalized weakness Is this a current diagnosis for this admission?: Yes Plan: Due to above. Plan as per above. (7) Urinary retention Is this a current diagnosis for this admission?: Yes Plan: This may partially explain her altered mental status, weakness and hyponatremia. No history of urinary retention. No back pain or back trauma. No cauda equina symptoms. UA negative. Given history of malignancy spinal lesion is a possibility but given right upper lower extremity hemiparesis spinal lesion is unlikely, if suspicious may consider CT or MRI of the spine. Continue Ruvalcaba care, monitor in and out, outpatient urology follow-up. (8) History of chronic lymphocytic leukemia Is this a current diagnosis for this admission?: Yes Plan: History of CLL. Followed by Dr. Almonte as outpatient. Presenting with leukocytosis but no sign of acute infection. Vitals WNL. Patient also started on dexamethasone 4 mg p.o. daily as outpatient which may also explain her worsening leukocytosis. Blood culture. No antibiotic indicated at this point, will start on empiric IV antibiotics guided by clinical symptoms and culture results. (9) Malnutrition Qualifiers: Malnutrition type: protein-calorie malnutrition Protein-calorie malnutrition severity: moderate Qualified Code(s): E44.0 - Moderate protein- calorie malnutrition Is this a current diagnosis for this admission?: Yes Plan: BMI 16.1 kg/m. Likely due to underlying malignancy and low p.o. intake. Consider appetite stimulant, encourage p.o. intake. Consult registered dietitian. - Time Time Spent with patient: 25-34 minutes Medications reviewed and adjusted accordingly: Yes Anticipated Discharge Disposition: Home with Home Health Anticipated Discharge Timeframe: within 36 hours
[2020-05-24] MEDS: ATENOLOL 50 MG TABLET PO SCH ×2 (02:40→11:33)
[2020-05-24] MEDS ORDERED: PANTOPRAZOLE SODIUM 40 MG TABLET.DR PO SCH (06:00)
[2020-05-24] MEDS ORDERED: LEVOTHYROXINE SODIUM 0.1 MG TABLET PO SCH (06:00)
[2020-05-24] MEDS: NORMAL SALINE 1000 ML 1,000 ML IV PRN (06:54)
[2020-05-24 07:17] LABS: HEMATOCRIT 29.3 % (36.0-47.0); HEMOGLOBIN 9.6 g/dL (12.0-15.5); MEAN CORPUSCULAR HEMOGLOBIN 29.7 pg (27.0-33.4); MEAN CORPUSCULAR HGB CONC 32.7 g/dL (32.0-36.0); MEAN CORPUSCULAR VOLUME 91 fl (80-97); PLATELET COUNT 378 10^3/uL (150-450); RED BLOOD COUNT 3.23 10^6/uL (3.72-5.28); RED CELL DISTRIBUTION WIDTH 16.6 % (11.5-14.0); WHITE BLOOD COUNT 27.4 10^3/uL (4.0-10.5)
[2020-05-24] MEDS ORDERED: GUAIFENESIN SYRP 200 MG/10 ML UDC PO PRN (07:20)
[2020-05-24 07:30] LABS: ALBUMIN 2.5 g/dL (3.5-5.0); ALKALINE PHOSPHATASE 261 U/L (38-126); ASPARTATE AMINO TRANSFERASE 64 U/L (14-36); BILIRUBIN,DIRECT 0.3 mg/dL (0.0-0.4); BILIRUBIN,TOTAL 0.4 mg/dL (0.2-1.3); BLOOD UREA NITROGEN 15 mg/dL (7-20); CALCIUM 7.8 mg/dL (8.4-10.2); GLUCOSE 79 mg/dL (75-110); PHOSPHORUS 3.4 mg/dL (2.5-4.5); POTASSIUM 4.8 mmol/L (3.6-5.0); TOTAL PROTEIN 4.7 g/dL (6.3-8.2)
[2020-05-24 07:35] LABS: CARBON DIOXIDE 28 mmol/L (22-30); CHLORIDE 99 mmol/L (98-107)
[2020-05-24 07:37] LABS: ANION GAP 2 (5-19)
[2020-05-24 07:56] LABS: ABSOLUTE LYMPHOCYTES# (MANUAL) 7.7 10^3/uL (0.5-4.7); BASOPHILS % (MANUAL) 0 % (0-2); EOSINOPHILS % (MANUAL) 0 % (0-6); LYMPHOCYTES % (MANUAL) 28 % (13-45); MONOCYTES % (MANUAL) 0 % (3-13); NUCLEATED RED BLOOD CELLS 1 /100 WBC (0); SEGMENTED NEUTROPHILS % (MAN) 72 % (42-78); TOTAL CELLS COUNTED 100
[2020-05-24 07:58] LABS: ANISOCYTOSIS 1+; POLYCHROMASIA SLIGHT
[2020-05-24 07:59] LABS: OVALOCYTES SLIGHT; POIKILOCYTOSIS SLIGHT
[2020-05-24 08:00] LABS: PLATELET COMMENT DECREASED
--- NOTE | 2020-05-24 08:40 | PDOC CONSULTATION ---
Consultation Consult Date: 05/24/20 Attending physician:: MADELEINE LYNN Provider Consulted: CIELO MOONEY Consult reason:: Patient well-known to oncologist team with stage IV lung cancer here with extreme right-sided weakness, altered mental status History of Present Illness Admission Date/PCP: 05/23/20 20:08 KHRIS TIDWELL MD Patient complains of: weakness, confusion History of Present Illness: ZIGGY TIDWELL is a 74 year old female with known history of stage IV lung cancer, diagnosis for nearly 8 years. In 08/2019, she was found to have new brain metastasis, she had gamma knife radiation to the brain with good control of disease. She was then followed for about 4 months and then had recurrent disease in the lung, PET/CT indicated positivity. We started her on chemotherapy with Taxotere and Cyramza, she had 3 cycles then restaging of the brain and lungs, this was done in March, this indicated overall improvement in disease. She was tolerating therapy generally well but getting weaker with each therapy. She did get significant mucositis and esophagitis with each therapy, and did require aggressive hydration throughout. She was doing as well she did with previous chemo until this past Friday. 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 She worsened over the next 2 days and on Friday we got a stat MRI and MRI of the brain. I reviewed this along with her radiation oncologist, Dr. Hancock, in [place], there was a lot of motion artifact, but overall the changes in the brain seems stable compared to the previous imaging. There is no new areas of disease. And no explanation for the acute right-sided weakness as well as twitching versus seizure activity. Stat labs drawn that day indicated severe hypomagnesemia with a magnesium of 0.9 and hypocalcemia with a calcium in the low 6 range. She was given IV hydration with calcium and magnesium. I received a call yesterday night from her son who came back from work and noticed that she was poorly responsive, not conversant, and looked much worse. She was brought to the ED, and now electrolytes looked improved, magnesium was in the 2 range, calcium was up to 8, although it is down to 7 today. This morning she does not look too much better. Of note, she had a Ruvalcaba catheter placed and nearly 2 L of urine came out. Past Medical History Cardiac Medical History: Reports: Hypertension Denies: Myocardial Infarction Pulmonary Medical History: Denies: Asthma, Tuberculosis Neurological Medical History: Denies: Seizures Malignancy Medical History: Reports: Lung Cancer GI Medical History: Denies: Hepatitis, Hiatal Hernia Psychiatric Medical History: Denies: Depression Hematology: Reports: Anemia Denies: Sickle Cell Disease Past Surgical History Past Surgical History: Denies: Amputation, Mastectomy, Pacemaker Social History Information Source: Relative Lives with: Family Smoking Status: Never Smoker Electronic Cigarette use?: No Frequency of Alcohol Use: None Hx Recreational Drug Use: No Hx Prescription Drug Abuse: No - Advance Directive Resuscitation Status: Do Not Resuscitate Family History Family History: Reviewed & Not Pertinent Parental Family History Reviewed: Yes Children Family History Reviewed: Yes Sibling(s) Family History Reviewed.: Yes Medication/Allergy Home Medications: Atenolol [Tenormin 50 Mg Tablet] 50 mg PO DAILY 06/18/13 Cholecalciferol (Vitamin D3) [Vitamin D3] 1,250 mcg PO MO@1000 05/23/20 Dexamethasone [Decadron 4 Mg Tablet] 4 mg PO DAILY 05/23/20 Esomeprazole Magnesium 40 mg PO DAILY 05/23/20 Famotidine [Pepcid 20 mg Tablet] 20 mg PO QPM 05/23/20 Folic Acid [Folvite 1 mg Tablet] 1 mg PO DAILY 05/23/20 Levetiracetam [Keppra 500 mg Tablet] 500 mg PO Q12 05/23/20 Levothyroxine Sodium [Synthroid 0.1 mg Tablet] 0.1 mg PO Q6AM 05/23/20 Lorazepam [Ativan 0.5 mg Tablet] 0.5 mg PO Q8HP PRN 05/23/20 Allergies/Adverse Reactions: Penicillins Allergy (Unknown, Verified 06/18/13 12:21) Sulfa (Sulfonamide Antibiotics) Allergy (Unknown, Verified 06/18/13 12:21) Review of Systems ROS unobtainable: Due to mental status Physical Exam Vital Signs: Temp Pulse Resp BP Pulse Ox 98.7 F 109 H 18 184/92 H 98 05/24/20 08:00 05/24/20 08:00 05/24/20 08:00 05/24/20 08:00 05/24/20 08:00 Intake & Output 05/23/20 05/24/20 05/25/20 06:59 06:59 06:59 Intake Total 100 Balance 100 Weight 38.6 kg General appearance: PRESENT: no acute distress, well-developed, well-nourished Head exam: PRESENT: atraumatic, normocephalic Eye exam: PRESENT: conjunctiva pink, EOMI, PERRLA. ABSENT: scleral icterus Ear exam: PRESENT: normal external ear exam Mouth exam: PRESENT: moist, tongue midline Neck exam: ABSENT: carotid bruit, JVD, lymphadenopathy, thyromegaly Respiratory exam: PRESENT: clear to auscultation neelima. ABSENT: rales, rhonchi, w heezes Cardiovascular exam: PRESENT: RRR. ABSENT: diastolic murmur, rubs, systolic murmur Pulses: PRESENT: normal dorsalis pedis pul Vascular exam: PRESENT: normal capillary refill GI/Abdominal exam: PRESENT: normal bowel sounds, soft. ABSENT: distended, guarding, mass, organolmegaly, rebound, tenderness Rectal exam: PRESENT: deferred Extremities exam: PRESENT: full ROM. ABSENT: calf tenderness, clubbing, pedal edema Neurological exam: PRESENT: alert, awake, oriented to person, oriented to place, oriented to time, oriented to situation, CN II-XII grossly intact. ABSENT: motor sensory deficit Psychiatric exam: PRESENT: appropriate affect, normal mood. ABSENT: homicidal ideation, suicidal ideation Skin exam: PRESENT: dry, intact, warm. ABSENT: cyanosis, rash Results Laboratory Results: 05/24/20 06:50 05/24/20 06:50 05/23/20 05/23/20 05/23/20 19:52 19:52 19:52 WBC 39.0 H* RBC 3.47 L Hgb 10.2 L Hct 31.5 L MCV 91 MCH 29.3 MCHC 32.3 RDW 16.3 H Plt Count 429 Seg Neutrophils % Not Reportable Sodium 126.0 L Potassium 4.8 Chloride 96 L Carbon Dioxide 23 Anion Gap 7 BUN 19 Creatinine 0.81 Est GFR ( Amer) > 60 Glucose 130 H Lactic Acid 1.6 Calcium 8.8 Ionized Calcium Jose Phosphorus Magnesium 2.2 Total Bilirubin 0.4 AST 128 H Alkaline Phosphatase 338 H Ammonia Total Protein 5.5 L Albumin 3.0 L TSH Urine Color Urine Appearance Urine pH Ur Specific [place] Urine Protein Urine Glucose (UA) Urine Ketones Urine Blood Urine Nitrite Ur Leukocyte Esterase Urine WBC (Auto) Urine RBC (Auto) 05/23/20 05/23/20 05/23/20 19:55 20:11 22:06 WBC RBC Hgb Hct MCV MCH MCHC RDW Plt Count Seg Neutrophils % Sodium Potassium Chloride Carbon Dioxide Anion Gap BUN Creatinine Est GFR ( Amer) Glucose Lactic Acid Calcium Ionized Calcium Jose 1.15 Phosphorus Magnesium Total Bilirubin AST Alkaline Phosphatase Ammonia Total Protein Albumin TSH 1.05 Urine Color YELLOW Urine Appearance CLEAR Urine pH 6.0 Ur Specific [place] 1.011 Urine Protein NEGATIVE Urine Glucose (UA) NEGATIVE Urine Ketones NEGATIVE Urine Blood NEGATIVE Urine Nitrite NEGATIVE Ur Leukocyte Esterase NEGATIVE Urine WBC (Auto) 1 Urine RBC (Auto) 0 05/24/20 05/24/20 05/24/20 06:50 06:50 06:50 WBC 27.4 H RBC 3.23 L Hgb 9.6 L Hct 29.3 L MCV 91 MCH 29.7 MCHC 32.7 RDW 16.6 H Plt Count 378 Seg Neutrophils % Not Reportable Sodium 128.9 L Potassium 4.8 Chloride 99 Carbon Dioxide 28 Anion Gap 2 L BUN 15 Creatinine 0.72 Est GFR ( Amer) > 60 Glucose 79 Lactic Acid Calcium 7.8 L Ionized Calcium Jose Phosphorus 3.4 Magnesium 1.7 Total Bilirubin 0.4 AST 64 H Alkaline Phosphatase 261 H Ammonia < 8.7 L Total Protein 4.7 L Albumin 2.5 L TSH Urine Color Urine Appearance Urine pH Ur Specific [place] Urine Protein Urine Glucose (UA) Urine Ketones Urine Blood Urine Nitrite Ur Leukocyte Esterase Urine WBC (Auto) Urine RBC (Auto) Assessment & Plan - Diagnosis (1) Generalized weakness Is this a current diagnosis for this admission?: Yes Plan: Initially thought it was secondary to dehydration from chemotherapy, she has been hydrated now for about 8 hours, recommend continued hydration aggressively over the next 24 hours to see if there is improvement. (2) Hemiparesis Qualifiers: Hemiparesis etiology: unspecified Hemiparesis laterality: right dominant side Qualified Code(s): G81.91 - Hemiplegia, unspecified affecting right dominant side Is this a current diagnosis for this admission?: Yes Plan: I will go ahead and get a stat CT head noncontrast to make sure that there is no sign of bleeding or any changes. (3) Chronic hyponatremia Is this a current diagnosis for this admission?: Yes Plan: Likely secondary to chemotherapy, possibly also from steroid, possible paraneoplastic as well. We will get Dr. Ayon involved to help out as well. (4) Lung cancer Qualifiers: Laterality: left Lung location: lower lobe of lung Qualified Code(s): C34.32 - Malignant neoplasm of lower lobe, left bronchus or lung Is this a current diagnosis for this admission?: Yes Plan: Stage IV lung cancer we will restage her with CT of the chest abdomen pelvis today. - Time Time Spent: Greater than 70 Minutes Disposition: Had long conversation with son and family, if there is no improvement in the next 24 hours or if there is overt progression noted on CT imaging, we will probably go towards a comfort care/hospice approach. But hopefully she could improve over the next 24 hours. Unfortunately, thus far, no distinct cause for the right-sided hemiparesis. - Inpatient Certification Based on my medical assessment, after consideration of the patient's comorbidities, presenting symptoms, or acuity I expect that the services needed warrant INPATIENT care.: Yes I certify that my determination is in accordance with my understanding of Medicare's requirements for reasonable and necessary INPATIENT services [42 CFR 412.3e].: Yes Medical Necessity: Need For IV Fluids, Need for Neurological Checks, Risk of Complication if Not Cared For in Hospital
[2020-05-24] MEDS ORDERED: DEXAMETHASONE 4 MG TABLET PO SCH (10:00)
[2020-05-24] MEDS ORDERED: ENOXAPARIN SODIUM INJ 40 MG/0.4 ML DISP.SYRIN SUBCUT SCH (10:00)
[2020-05-24] MEDS ORDERED: DOCUSATE SODIUM 100 MG CAPSULE PO SCH (10:00)
[2020-05-24] MEDS ORDERED: PHENYTOIN SODIUM INJ/PF 250 MG/5 ML SDV IV ONE ×2 (10:30→18:30)
[2020-05-24] MEDS ORDERED: LORAZEPAM INJ 2 MG/1 ML VIAL IV PRN ×2 (11:09→11:13)
[2020-05-24] MEDS: LEVETIRACETAM 500 MG/NACL-ISO 500 MG/100 ML RTUPB IV SCH (11:32)
[2020-05-24] MEDS: FOLIC ACID 1 MG TABLET PO SCH (11:33)
[2020-05-24] MEDS: FAMOTIDINE 20 MG TABLET PO SCH (11:33)
[2020-05-24] MEDS ORDERED: HYDRALAZINE HCL INJ/PF 20 MG/1 ML SDV IV PRN (11:38)
[2020-05-24] MEDS ORDERED: GLUCAGON,HUMAN RECOMB 1 MG INJ SUBCUT PRN (11:39)
[2020-05-24] MEDS ORDERED: DEXTROSE 50%-WATER 25 GM/50 ML DISP.SYRIN IV PRN ×2 (11:39)
[2020-05-24] MEDS ORDERED: DEXTROSE 40% GEL 15 GM TUBE PO PRN ×2 (11:39)
[2020-05-24] MEDS: PHENYTOIN SODIUM INJ/PF 250 MG/5 ML SDV IV ONE ×2 (11:47→16:19)
[2020-05-24] MEDS ORDERED: HYDRALAZINE HCL INJ/PF 20 MG/1 ML SDV IV ONE (11:47)
--- NOTE | 2020-05-24 11:54 | PDOC CONSULTATION ---
Consultation Consult Date: 05/24/20 Provider Consulted: Ankita CHEN Consult reason:: hyponatremia, hypocalcemia, hypomagnesemia. History of Present Illness Admission Date/PCP: 05/23/20 20:08 KHRIS RODAS MD History of Present Illness: ZIGGY RODAS is a 74 year old female with significant past medical history of hypertension, hypothyroidism, chronic hyponatremia, anxiety, CLL and stage IV lung cancer with known metastasis to brain status post chemoradiation, recently restarted on chemotherapy, currently on fifth cycle, last chemotherapy 2 weeks ago, who was sent to ED by her oncologist Dr. Almonte for evaluation of generalized weakness, right upper and lower extremity weakness, altered mental status, and electrolyte abnormalities. I am seeing the patient today by the bedside. Source of history is Dr. Rodas her son who is present in the room, as per son patient was at her baseline ambulating with the help of her and p.o. tolerant, but recently patient has been noted to being more altered,having very low appetite with generalized weakness and right-sided upper and lower extremity weakness and involuntary contractions. Patient has not had any exposure to COVID, is not complaining of any nausea, vomiting, diarrhea, constipation, fever, chills, chest pain, shortness of breath. Initially it was thought that her right upper and lower extremity weakness and altered mental status could be related to CVA or worsening metastatic brain lesion and was started on dexamethasone but on 05/22/2020 MRI/MRA head was negative for any acute stroke or any new lesions. Patient also had a PET scan on 03/28/2020 comparison on 01/04/2020 which showed favorable response to therapy, increased metabolic activity confined to the primary lung mass. Patient had outpatient CBC CMP which showed acute on chronic hyponatremia, hypomagnesemia and hypocalcemia. Her calcium and magnesium deficiency were repleted as OP therapy and patient was sent home. The patient showed some improvement obviously in her neuropathy symptoms but she continued to have jerky movements of her right side and later became rather somnolent and hypo responsive and therefore she was brought to the ER yesterday . In ED she was noted to have afebrile, normotensive, and SPO2 of 100% on room air. WBC of 39,000 up [place] [address] on 10/29/2018. Sodium 126.0 with baseline of 124-132 and elevated LFTs. Her TSH, calcium and magnesium were all within normal limits. Patient does not have any urinary retention but when in ED a Ruvalcaba patient was inserted she produced about 1700 cc of urine. Urinalysis was negative for any infection. Today as I see her she is rather moribund and rather unresponsive. She is dev iated to her right side which is floppy. She has a right gaze which is fixated. She has continues tonic movements of right lower extremity. Past Medical History Cardiac Medical History: Denies: Myocardial Infarction Pulmonary Medical History: Denies: Asthma, Tuberculosis Neurological Medical History: Denies: Seizures Renal/ Medical History: Reports: Hyponatremia Malignancy Medical History: Reports: Lung Cancer, Other - CLL GI Medical History: Denies: Hepatitis, Hiatal Hernia Psychiatric Medical History: Denies: Depression Past Surgical History Past Surgical History: Denies: Mastectomy, Pacemaker Social History Lives with: Family Smoking Status: Never Smoker Electronic Cigarette use?: No Frequency of Alcohol Use: None Hx Recreational Drug Use: No Hx Prescription Drug Abuse: No - Advance Directive Resuscitation Status: Do Not Resuscitate Family History Parental Family History Reviewed: Yes - Negative for any CKD Children Family History Reviewed: No Sibling(s) Family History Reviewed.: No Medication/Allergy Home Medications: Atenolol [Tenormin 50 Mg Tablet] 50 mg PO DAILY 06/18/13 Cholecalciferol (Vitamin D3) [Vitamin D3] 1,250 mcg PO MO@1000 05/23/20 Dexamethasone [Decadron 4 Mg Tablet] 4 mg PO DAILY 05/23/20 Esomeprazole Magnesium 40 mg PO DAILY 05/23/20 Famotidine [Pepcid 20 mg Tablet] 20 mg PO QPM 05/23/20 Folic Acid [Folvite 1 mg Tablet] 1 mg PO DAILY 05/23/20 Levetiracetam [Keppra 500 mg Tablet] 500 mg PO Q12 05/23/20 Levothyroxine Sodium [Synthroid 0.1 mg Tablet] 0.1 mg PO Q6AM 05/23/20 Lorazepam [Ativan 0.5 mg Tablet] 0.5 mg PO Q8HP PRN 05/23/20 Allergies/Adverse Reactions: Penicillins Allergy (Unknown, Verified 06/18/13 12:21) Sulfa (Sulfonamide Antibiotics) Allergy (Unknown, Verified 06/18/13 12:21) Review of Systems ROS unobtainable: Due to mental status Review of Systems: However chart review was done and discussions were done with her son Dr. Rodas. Physical Exam Vital Signs: Temp Pulse Resp BP Pulse Ox 98.7 F 109 H 18 184/92 H 98 05/24/20 08:00 05/24/20 08:00 05/24/20 08:00 05/24/20 08:00 05/24/20 08:00 Intake & Output 05/23/20 05/24/20 05/25/20 06:59 06:59 06:59 Intake Total 100 Balance 100 Weight 38.6 kg General appearance: PRESENT: disheveled, mild distress, thin Eye exam: PRESENT: EOMI, PERRLA. ABSENT: scleral icterus Ear exam: PRESENT: normal external ear exam Mouth exam: PRESENT: neck supple. ABSENT: moist Neck exam: ABSENT: lymphadenopathy, meningismus, tenderness, thyromegaly, tracheal deviation Respiratory exam: PRESENT: clear to auscultation neelima, crackles, decreased breath sounds Cardiovascular exam: PRESENT: +S1, +S2. ABSENT: rubs GI/Abdominal exam: PRESENT: normal bowel sounds, soft. ABSENT: organomegaly, tenderness Extremities exam: ABSENT: pedal edema Neurological exam: PRESENT: altered Skin exam: ABSENT: erythema, mottled, rash Results Laboratory Results: 05/24/20 06:50 05/24/20 06:50 05/23/20 05/23/20 05/23/20 19:52 19:52 19:52 WBC 39.0 H* RBC 3.47 L Hgb 10.2 L Hct 31.5 L MCV 91 MCH 29.3 MCHC 32.3 RDW 16.3 H Plt Count 429 Seg Neutrophils % Not Reportable Sodium 126.0 L Potassium 4.8 Chloride 96 L Carbon Dioxide 23 Anion Gap 7 BUN 19 Creatinine 0.81 Est GFR ( Amer) > 60 Glucose 130 H Lactic Acid 1.6 Calcium 8.8 Ionized Calcium Jose Phosphorus Magnesium 2.2 Total Bilirubin 0.4 AST 128 H Alkaline Phosphatase 338 H Ammonia Total Protein 5.5 L Albumin 3.0 L TSH Urine Color Urine Appearance Urine pH Ur Specific [place] Urine Protein Urine Glucose (UA) Urine Ketones Urine Blood Urine Nitrite Ur Leukocyte Esterase Urine WBC (Auto) Urine RBC (Auto) 05/23/20 05/23/20 05/23/20 19:55 20:11 22:06 WBC RBC Hgb Hct MCV MCH MCHC RDW Plt Count Seg Neutrophils % Sodium Potassium Chloride Carbon Dioxide Anion Gap BUN Creatinine Est GFR ( Amer) Glucose Lactic Acid Calcium Ionized Calcium Jose 1.15 Phosphorus Magnesium Total Bilirubin AST Alkaline Phosphatase Ammonia Total Protein Albumin TSH 1.05 Urine Color YELLOW Urine Appearance CLEAR Urine pH 6.0 Ur Specific [place] 1.011 Urine Protein NEGATIVE Urine Glucose (UA) NEGATIVE Urine Ketones NEGATIVE Urine Blood NEGATIVE Urine Nitrite NEGATIVE Ur Leukocyte Esterase NEGATIVE Urine WBC (Auto) 1 Urine RBC (Auto) 0 05/24/20 05/24/20 05/24/20 06:50 06:50 06:50 WBC 27.4 H RBC 3.23 L Hgb 9.6 L Hct 29.3 L MCV 91 MCH 29.7 MCHC 32.7 RDW 16.6 H Plt Count 378 Seg Neutrophils % Not Reportable Sodium 128.9 L Potassium 4.8 Chloride 99 Carbon Dioxide 28 Anion Gap 2 L BUN 15 Creatinine 0.72 Est GFR ( Amer) > 60 Glucose 79 Lactic Acid Calcium 7.8 L Ionized Calcium Jose Phosphorus 3.4 Magnesium 1.7 Total Bilirubin 0.4 AST 64 H Alkaline Phosphatase 261 H Ammonia < 8.7 L Total Protein 4.7 L Albumin 2.5 L TSH Urine Color Urine Appearance Urine pH Ur Specific [place] Urine Protein Urine Glucose (UA) Urine Ketones Urine Blood Urine Nitrite Ur Leukocyte Esterase Urine WBC (Auto) Urine RBC (Auto) Assessment & Plan - Diagnosis (1) Seizure disorder Plan: Patient is now having continuous tonic seizures affecting her right side with fixed right gaze palsy. Patient currently is on Keppra but I do not think it is holding back for seizures of the moment. We will therefore order IV Dilantin 500 mg loading followed by Vimpat 50 mg twice daily as per discussions done with neurology in [place]. The causes for her seizures which are rather focal could be because of scarring tissue from her previous radiation/surgery on her left brain/hypertensive encephalopathy/idiopathic. Besides the above measures I am also going to recheck her blood pressure and treat her with IV hydralazine f or blood pressures over [address] this with Dr. Peñaloza/hospitalist. (2) Hypocalcemia Plan: Initiate work-up. Currently normal. (3) Hypomagnesemia Plan: Currently normal. Monitor. (4) Hypertension Is this a current diagnosis for this admission?: Yes Plan: Uncontrolled.Will recheck and start IV hydralazine. Discussed with Dr. Peñaloza. (5) Leukocytosis, unspecified Qualifiers: Leukocytosis type: unspecified Qualified Code(s): D72.829 - Elevated white blood cell count, unspecified Plan: Most likely combination of CLL/steroids. Monitor. (6) Malnutrition Qualifiers: Malnutrition type: protein-calorie malnutrition Protein-calorie malnutrition severity: moderate Qualified Code(s): E44.0 - Moderate protein- calorie malnutrition Is this a current diagnosis for this admission?: Yes Plan: Status quo. (7) Stage IV squamous cell carcinoma of lung Qualifiers: Laterality: unspecified laterality Qualified Code(s): C34.90 - Malignant neoplasm of unspecified part of unspecified bronchus or lung Is this a current diagnosis for this admission?: Yes Plan: With brain mets. As per Dr. Almonte/[facility] oncologist. (8) Urinary retention Is this a current diagnosis for this admission?: Yes Plan: Status post Ruvalcaba catheter with recovery of 1.7 L of urine.
--- NOTE | 2020-05-24 12:13 | RADIOLOGY REPORT (SQ) ---
EXAM DESCRIPTION: CT HEAD WITHOUT IMAGES COMPLETED DATE/TIME: 05/24/2020 10:56 am REASON FOR STUDY: Altered Mental Status C34.31 MALIGNANT NEOPLASM OF LOWER LOBE, RIGHT BRONCHUS OR L C34.30 MALIGNANT NEOPLASM OF LOWER LOBE, UNSP BRONCHUS OR LOU COMPARISON: MRI dated 05/22/2020 TECHNIQUE: Axial images acquired through the brain without intravenous contrast. Images reviewed wi th bone, brain and subdural windows. Additional sagittal and coronal reconstructions were generated. Images stored on PACS. All CT scanners at this facility use dose modulation, iterative reconstruction, and/or weight based d osing when appropriate to reduce radiation dose to as low as reasonably achievable (ALARA). [facility]: Dose Right [facility]: CareDose [facility]: Dose Right [facility]: Teradose 4D [facility]: [employer] RADIATION DOSE: CT Rad equipment meets quality standard of care and radiation dose reduction techniq ues were employed. CTDIvol: 48.6 mGy. DLP: 881 mGy-cm. mGy. LIMITATIONS: None. FINDINGS: VENTRICLES: Prominent. CEREBRUM: Intracranial metastasis well demonstrated on recent MRI is less apparent on CT. There is f ocal decreased attenuation in the high left posterior frontal anterior parietal region consistent wit h vasogenic edema. Focal decreased attenuation in the left frontal lobe is also noted corresponding to metastatic focus. No hemorrhage. No midline shift. Areas of low density in the white matter mo st likely due to chronic micro-vascular ischemic change. No evidence for acute infarction. CEREBELLUM: No masses. No hemorrhage. No alteration of density. No evidence for acute infarction. EXTRAAXIAL SPACES: Mild age-related involutional change. No fluid collections. No masses. ORBITS AND GLOBE: No intra- or extraconal masses. Normal contour of globe without masses. CALVARIUM: No fracture. PARANASAL SINUSES: No fluid or mucosal thickening. SOFT TISSUES: No mass or hematoma. OTHER: No other significant finding. IMPRESSION: 1. Small metastatic foci in the left cerebral hemisphere are again noted but less appar ent on the current study. This in part is due to lack of IV contrast. 2. No intracranial hemorrhage. No midline shift. EVIDENCE OF ACUTE STROKE: NO. TECHNICAL DOCUMENTATION: JOB ID: [id number] Quality ID # [id number]: Final reports with documentation of one or more dose reduction techniques (e.g., Au tomated exposure control, adjustment of the mA and/or kV according to patient size, use of iterative reconstruction technique) 2010 [employer] All Rights Reserved Reading location - IP/workstation name: [email or web address]
--- NOTE | 2020-05-24 12:25 | RADIOLOGY REPORT (SQ) ---
EXAM DESCRIPTION: CT CHEST WITH; CT ABD/PELVIS WITH IV ONLY IMAGES COMPLETED DATE/TIME: 05/24/2020 11:00 am REASON FOR STUDY: stage 4 lung cancer C34.31 MALIGNANT NEOPLASM OF LOWER LOBE, RIGHT BRONCHUS OR L C34.30 MALIGNANT NEOPLASM OF LOWER LOBE, UNSP BRONCHUS OR LOU CONTRAST TYPE AND DOSE: contrast/concentration: Isovue 350.00 mmol/ml; Total Contrast Delivered: 45. 0 ml; Total Saline Delivered: 30.0 ml RENAL FUNCTION: BUN 15, creatinine 0.72 COMPARISON: PET-CT dated 03/28/2020 TECHNIQUE: CT scan of the chest performed using helical scanning technique with dynamic intravenous contrast injection. Images reviewed with lung, soft tissue and bone windows. Reconstructed coronal a nd sagittal MPR images reviewed. All images stored on PACS. All CT scanners at this facility use dose modulation, iterative reconstruction, and/or weight based d osing when appropriate to reduce radiation dose to as low as reasonably achievable (ALARA). [facility]: Dose Right [facility]: CareDose [facility]: Dose Right [facility]: Teradose 4D [facility]: [employer] RADIATION DOSE: CT Rad equipment meets quality standard of care and radiation dose reduction techniq ues were employed. CTDIvol: 4.4 - 4.5 mGy. DLP: 586 mGy-cm. . LIMITATIONS: None. FINDINGS: AXILLAE: No adenopathy. CHEST WALL: No masses. No subcutaneous air. LUNGS: Persistent soft tissue attenuation in the left hilum. This is not significantly changed from recent PET-CT. There is complete collapse of the left lower lobe which is a new finding. This eithe r suggest progression of disease with postobstructive atelectasis or mucous plug. There is a moderat e left pleural effusion which is increased since prior PET-CT. PLEURA: Moderate effusion as discussed above. THYROID: No masses or significant asymmetry. HILAR AND MEDIASTINAL STRUCTURES: Left hilar fullness. Study is degraded by respiratory motion. Emmanuelle pect left hilar mass as previously demonstrated. AORTA AND GREAT VESSELS: No aneurysm. No dissection. PULMONARY ARTERIES: No identified pulmonary emboli. Study not optimized for the pulmonary arteries. HEART: No pericardial effusion. HARDWARE AND LIFELINES: None. BONES: No significant finding. OTHER: Moderate size hiatal hernia. IMPRESSION: Increasing left pleural effusion. Complete collapse of left lower lobe as described. COMPARISON: None. RADIATION DOSE: CT Rad equipment meets quality standard of care and radiation dose reduction techniq ues were employed. CTDIvol: 4.4 - 4.5 mGy. DLP: 586 mGy-cm. mGy. TECHNIQUE: CT scan of the abdomen and pelvis performed with intravenous and oral contrast using fabienne krys scanning technique with dynamic intravenous contrast injection. Images reviewed with lung, soft tissue and bone windows. Reconstructed coronal and sagittal MPR images reviewed. Delayed images for evaluation of the urinary system also acquired and evaluated. All images stored on PACS. All CT scanners at this facility use dose modulation, iterative reconstruction, and/or weight based d osing when appropriate to reduce radiation dose to as low as reasonably achievable (ALARA). [facility]: Dose Right [facility]: [employer]Care [facility]: Dose Right [facility]: Teradose 4D [facility]: [employer] FINDINGS: LIVER: Normal size. No masses. No dilated ducts. SPLEEN: Normal size. No focal lesions. PANCREAS: Atrophic pancreas. No masses. GALLBLADDER: Mildly distended gallbladder. No surrounding edema. ADRENAL GLANDS: No significant masses or asymmetry. RIGHT KIDNEY AND URETER: No solid masses. No significant calcifications. No hydronephrosis or hyd roureter. LEFT KIDNEY AND URETER: No solid masses. Simple left renal cyst. No significant calcifications. No hydronephrosis or hydroureter. AORTA AND VESSELS: Atherosclerotic change. No aneurysmal dilatation. RETROPERITONEUM: No retroperitoneal adenopathy, hemorrhage or masses. LARGE AND SMALL BOWEL: No dilatation. No masses. No wall thickening. APPENDIX: Prior appendectomy. ABDOMINAL WALL: No hernia or masses. PERITONEAL CAVITY: No free air. No free fluid. No peritoneal implants or masses. PELVIS: Ruvalcaba catheter decompresses the bladder. BONES: No significant or acute findings. OTHER: No other significant finding. IMPRESSION: No acute findings in the abdomen or pelvis. The study is degraded by respiratory motion . TECHNICAL DOCUMENTATION: JOB ID: [id number] Quality ID # [id number]: Final reports with documentation of one or more dose reduction techniques (e.g., Au tomated exposure control, adjustment of the mA and/or kV according to patient size, use of iterative reconstruction technique) 2010 [employer]- All Rights Reserved Reading location - IP/workstation name: [email or web address]
--- NOTE | 2020-05-24 12:25 | RADIOLOGY REPORT (SQ) ---
EXAM DESCRIPTION: CT CHEST WITH; CT ABD/PELVIS WITH IV ONLY IMAGES COMPLETED DATE/TIME: 05/24/2020 11:00 am REASON FOR STUDY: stage 4 lung cancer C34.31 MALIGNANT NEOPLASM OF LOWER LOBE, RIGHT BRONCHUS OR L C34.30 MALIGNANT NEOPLASM OF LOWER LOBE, UNSP BRONCHUS OR LOU CONTRAST TYPE AND DOSE: contrast/concentration: Isovue 350.00 mmol/ml; Total Contrast Delivered: 45. 0 ml; Total Saline Delivered: 30.0 ml RENAL FUNCTION: BUN 15, creatinine 0.72 COMPARISON: PET-CT dated 03/28/2020 TECHNIQUE: CT scan of the chest performed using helical scanning technique with dynamic intravenous contrast injection. Images reviewed with lung, soft tissue and bone windows. Reconstructed coronal a nd sagittal MPR images reviewed. All images stored on PACS. All CT scanners at this facility use dose modulation, iterative reconstruction, and/or weight based d osing when appropriate to reduce radiation dose to as low as reasonably achievable (ALARA). [facility]: Dose Right [facility]: CareDose [facility]: Dose Right [facility]: Teradose 4D [facility]: [employer] RADIATION DOSE: CT Rad equipment meets quality standard of care and radiation dose reduction techniq ues were employed. CTDIvol: 4.4 - 4.5 mGy. DLP: 586 mGy-cm. . LIMITATIONS: None. FINDINGS: AXILLAE: No adenopathy. CHEST WALL: No masses. No subcutaneous air. LUNGS: Persistent soft tissue attenuation in the left hilum. This is not significantly changed from recent PET-CT. There is complete collapse of the left lower lobe which is a new finding. This eithe r suggest progression of disease with postobstructive atelectasis or mucous plug. There is a moderat e left pleural effusion which is increased since prior PET-CT. PLEURA: Moderate effusion as discussed above. THYROID: No masses or significant asymmetry. HILAR AND MEDIASTINAL STRUCTURES: Left hilar fullness. Study is degraded by respiratory motion. Emmanuelle pect left hilar mass as previously demonstrated. AORTA AND GREAT VESSELS: No aneurysm. No dissection. PULMONARY ARTERIES: No identified pulmonary emboli. Study not optimized for the pulmonary arteries. HEART: No pericardial effusion. HARDWARE AND LIFELINES: None. BONES: No significant finding. OTHER: Moderate size hiatal hernia. IMPRESSION: Increasing left pleural effusion. Complete collapse of left lower lobe as described. COMPARISON: None. RADIATION DOSE: CT Rad equipment meets quality standard of care and radiation dose reduction techniq ues were employed. CTDIvol: 4.4 - 4.5 mGy. DLP: 586 mGy-cm. mGy. TECHNIQUE: CT scan of the abdomen and pelvis performed with intravenous and oral contrast using fabienne krys scanning technique with dynamic intravenous contrast injection. Images reviewed with lung, soft tissue and bone windows. Reconstructed coronal and sagittal MPR images reviewed. Delayed images for evaluation of the urinary system also acquired and evaluated. All images stored on PACS. All CT scanners at this facility use dose modulation, iterative reconstruction, and/or weight based d osing when appropriate to reduce radiation dose to as low as reasonably achievable (ALARA). [facility]: Dose Right [facility]: SureCare [facility]: Dose Right [facility]: Teradose 4D [facility]: [employer] FINDINGS: LIVER: Normal size. No masses. No dilated ducts. SPLEEN: Normal size. No focal lesions. PANCREAS: Atrophic pancreas. No masses. GALLBLADDER: Mildly distended gallbladder. No surrounding edema. ADRENAL GLANDS: No significant masses or asymmetry. RIGHT KIDNEY AND URETER: No solid masses. No significant calcifications. No hydronephrosis or hyd roureter. LEFT KIDNEY AND URETER: No solid masses. Simple left renal cyst. No significant calcifications. No hydronephrosis or hydroureter. AORTA AND VESSELS: Atherosclerotic change. No aneurysmal dilatation. RETROPERITONEUM: No retroperitoneal adenopathy, hemorrhage or masses. LARGE AND SMALL BOWEL: No dilatation. No masses. No wall thickening. APPENDIX: Prior appendectomy. ABDOMINAL WALL: No hernia or masses. PERITONEAL CAVITY: No free air. No free fluid. No peritoneal implants or masses. PELVIS: Ruvalcaba catheter decompresses the bladder. BONES: No significant or acute findings. OTHER: No other significant finding. IMPRESSION: No acute findings in the abdomen or pelvis. The study is degraded by respiratory motion . TECHNICAL DOCUMENTATION: JOB ID: [id number] Quality ID # [id number]: Final reports with documentation of one or more dose reduction techniques (e.g., Au tomated exposure control, adjustment of the mA and/or kV according to patient size, use of iterative reconstruction technique) 2010 [employer]- All Rights Reserved Reading location - IP/workstation name: [email or web address]
[2020-05-24] MEDS ORDERED: MAGNESIUM SULFATE/D5W 1 GM/100 ML RTUPB IV ONE ×2 (12:31→16:30)
--- NOTE | 2020-05-24 12:33 | PDOC PROGRESS REPORT ---
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 Almonte for evaluation of generalized weakness, right upper and lower extremity weakness, altered mental status, and electrolyte abnormalities. Source of history is Dr. Rodas her son who is present in the room, as per son patient was at her baseline ambulating with the help of her and p.o. tolerant, but recently patient has been noted to being more altered,having very low appetite with generalized weakness and right-sided upper and lower extremity weakness and involuntary contractions. Patient has not had any exposure to COVI D, is not complaining of any nausea, vomiting, diarrhea, constipation, fever, chills, chest pain, shortness of breath. Initially it was thought that her right upper and lower extremity weakness and a ltered mental status could be related to CVA or worsening metastatic brain lesion and was started on dexamethasone but on 05/22/2020 MRI/MRA head was negative for any acute stroke or any new lesions. Patient also had a PET scan on 03/28/2020 comparison on 01/04/2020 which showed favorable response to therapy, increased metabolic activity confined to the primary lung mass. Patient had outpatient CBC CMP which showed chronic hyponatremia, hypomagnesemia and hypocalcemia, electrolytes were repleted and patient was sent home. As patient did not improve much she was brought to ED today. In ED she was noted to have afebrile, normotensive, and SPO2 of 100% on room air. WBC of 39,000 [place] [address] on 10/29/2018. Sodium 126.0 with baseline of 124-132 and elevated LFTs, otherwise lactic acid, TSH, calcium and magnesium all within normal limits. Patient does not have any urinary retention but when in ED a Ruvalcaba patient was inserted she produced about 1700 cc of urine. Urinalysis was negative for any infection. On my encounter patient is comfortably resting in bed, in no apparent distress, very pleasant and cooperative with physical examination, she has visible right upper and lower extremity involuntary contraction,unfortunately does not communicate much due to language barrier, as per Dr. Rodas her son patient has improved since being admitted to ED. Dr. Rodas her son who was present in the room also mentions that her mother CODE STATUS is DNR/DNI. I was able to talk to Dr. Almonte her oncologist who think patient will only need rehydration and correction of her electrolyte abnormalities and will not need any antibiotics and there is no sign infection even though she has elevated leukocytosis which explained by her chronic CLL p.o. dexamethasone which was started recently. No further imaging recommended. 05/24/20-CT head is negative. Recent MRI/MRA negative for stroke. On examination patient is having the seizure-like activity affecting the right side of the body. Not responding to verbal commands. Right gaze is fixed. Patient received Keppra IV push, Dilantin IV push, lorazepam as needed to start her on Vimpat from this evening. EEG was requested. Patient will be n.p.o. Started on IV hydralazine 10 mg every 4 hours as needed for systolic blood pressure more than 170. Keep her n.p.o. started on IV Protonix 40 mg twice a day. aspiration, seizure precautions will be requested. Reason For Visit: ANORREXIA,WEAKNESS,URINARY RETENTION,AMS Physical Exam Vital Signs: Temp Pulse Resp BP Pulse Ox 98.7 F 109 H 18 184/92 H 98 05/24/20 08:00 05/24/20 08:00 05/24/20 08:00 05/24/20 08:00 05/24/20 08:00 Intake & Output 05/23/20 05/24/20 05/25/20 06:59 06:59 06:59 Intake Total 100 Balance 100 Weight 38.6 kg General appearance: PRESENT: no acute distress, thin, other - Patient is not responding to the verbal commands. Head exam: PRESENT: atraumatic Eye exam: PRESENT: other - Fixed right gaze. Mouth exam: PRESENT: moist, tongue midline Teeth exam: PRESENT: poor dentation Neck exam: ABSENT: carotid bruit, JVD, lymphadenopathy, thyromegaly Respiratory exam: PRESENT: decreased breath sounds Cardiovascular exam: PRESENT: tachycardia GI/Abdominal exam: PRESENT: normal bowel sounds, soft. ABSENT: distended, guarding, mass, organolmegaly, rebound, tenderness Rectal exam: PRESENT: deferred Extremities exam: PRESENT: full ROM. ABSENT: calf tenderness, clubbing, pedal edema Neurological exam: PRESENT: other - Unresponsive patient has seizure-like activity. Results Laboratory Results: 05/24/20 06:50 05/24/20 06:50 05/23/20 05/23/20 05/23/20 19:52 19:52 19:52 WBC 39.0 H* RBC 3.47 L Hgb 10.2 L Hct 31.5 L MCV 91 MCH 29.3 MCHC 32.3 RDW 16.3 H Plt Count 429 Seg Neutrophils % Not Reportable Sodium 126.0 L Potassium 4.8 Chloride 96 L Carbon Dioxide 23 Anion Gap 7 BUN 19 Creatinine 0.81 Est GFR ( Amer) > 60 Glucose 130 H Lactic Acid 1.6 Calcium 8.8 Ionized Calcium Jose Phosphorus Magnesium 2.2 Total Bilirubin 0.4 AST 128 H Alkaline Phosphatase 338 H Ammonia Total Protein 5.5 L Albumin 3.0 L TSH Urine Color Urine Appearance Urine pH Ur Specific [place] Urine Protein Urine Glucose (UA) Urine Ketones Urine Blood Urine Nitrite Ur Leukocyte Esterase Urine WBC (Auto) Urine RBC (Auto) 05/23/20 05/23/20 05/23/20 19:55 20:11 22:06 WBC RBC Hgb Hct MCV MCH MCHC RDW Plt Count Seg Neutrophils % Sodium Potassium Chloride Carbon Dioxide Anion Gap BUN Creatinine Est GFR ( Amer) Glucose Lactic Acid Calcium Ionized Calcium Jose 1.15 Phosphorus Magnesium Total Bilirubin AST Alkaline Phosphatase Ammonia Total Protein Albumin TSH 1.05 Urine Color YELLOW Urine Appearance CLEAR Urine pH 6.0 Ur Specific [place] 1.011 Urine Protein NEGATIVE Urine Glucose (UA) NEGATIVE Urine Ketones NEGATIVE Urine Blood NEGATIVE Urine Nitrite NEGATIVE Ur Leukocyte Esterase NEGATIVE Urine WBC (Auto) 1 Urine RBC (Auto) 0 05/24/20 05/24/20 05/24/20 06:50 06:50 06:50 WBC 27.4 H RBC 3.23 L Hgb 9.6 L Hct 29.3 L MCV 91 MCH 29.7 MCHC 32.7 RDW 16.6 H Plt Count 378 Seg Neutrophils % Not Reportable Sodium 128.9 L Potassium 4.8 Chloride 99 Carbon Dioxide 28 Anion Gap 2 L BUN 15 Creatinine 0.72 Est GFR ( Amer) > 60 Glucose 79 Lactic Acid Calcium 7.8 L Ionized Calcium Jose Phosphorus 3.4 Magnesium 1.7 Total Bilirubin 0.4 AST 64 H Alkaline Phosphatase 261 H Ammonia < 8.7 L Total Protein 4.7 L Albumin 2.5 L TSH Urine Color Urine Appearance Urine pH Ur Specific [place] Urine Protein Urine Glucose (UA) Urine Ketones Urine Blood Urine Nitrite Ur Leukocyte Esterase Urine WBC (Auto) Urine RBC (Auto) Impressions: Head CT 05/24/20 00:00 IMPRESSION: 1. Small metastatic foci in the left cerebral hemisphere are again noted but less apparent on the current study. This in part is due to lack of IV contrast. 2. No intracranial hemorrhage. No midline shift. EVIDENCE OF ACUTE STROKE: NO. Assessment and Plan - Diagnosis (1) Seizure disorder Is this a current diagnosis for this admission?: Yes Plan: 05/24/2020-patient having the active continuous seizure activity received IV Dilantin, IV Keppra, also on IV lorazepam as needed. Plan is to start Vimpat from evening. EEG was requested. Aspiration, seizure precautions will be requested. (2) Chronic hyponatremia Is this a current diagnosis for this admission?: Yes Plan: Chronic hyponatremia. Likely due to underlying malignancy. Sodium seems to be at baseline. Continue normal saline. Monitor sodium level. Monitor for seizure. 05/24/2020-serum sodium is 128.9. Chronic hyponatremia most likely secondary to underlying malignancy. (3) Hypertension Is this a current diagnosis for this admission?: Yes Plan: Seems dehydrated. Mildly hypertensive. Continue fluid resuscitation guided by volume status. Resume home meds. PRN hydralazine. Adjust meds as needed. 05/24/2020-patient has history of chronic essential hypertension systolic blood pressure close to 200. Started on IV hydralazine 10 mg every 4 PRN for systolic blood pressure more than 170. It may be a contributing factor for seizure. (4) Hypocalcemia Is this a current diagnosis for this admission?: Yes Plan: 05/24/2020-corrected serum calcium is within normal limits. (5) Hypomagnesemia Is this a current diagnosis for this admission?: Yes Plan: 05/24/2020-serum magnesium is 1.7 to give 1 g of IV magnesium at this time. (6) History of chronic lymphocytic leukemia Is this a current diagnosis for this admission?: Yes Plan: History of CLL. Followed by Dr. Almonte as outpatient. Presenting with leukocytosis but no sign of acute infection. Vitals WNL. Patient also started on dexamethasone 4 mg p.o. daily as outpatient which may also explain her worsening leukocytosis. Blood culture. No antibiotic indicated at this point, will start on empiric IV antibiotics guided by clinical symptoms and culture results. 05/24/2020-patient has history of CLL. Dr. Almonte on board. WBC count is elevated most likely secondary to CLL. Afebrile. Not on antibiotics at this time. (7) Stage IV squamous cell carcinoma of lung Qualifiers: Laterality: unspecified laterality Qualified Code(s): C34.90 - Malignant n eoplasm of unspecified part of unspecified bronchus or lung Is this a current diagnosis for this admission?: Yes Plan: Recurrent. Status post chemoradiation. Currently on chemotherapy for cycle. Last chemotherapy 2 weeks ago. Followed by Dr. Almonte as outpatient. Oncology consulted. Follow-up recommendations. (8) Protein-energy malnutrition Qualifiers: Protein-calorie malnutrition severity: severe Qualified Code(s): E43 - Unspecified severe protein-calorie malnutrition Is this a current diagnosis for this admission?: Yes Plan: 05/24/2020-patient BMI is less than 17. On examination wasting of the temporalis muscles, quadriceps muscles, deltoid muscle seen. Patient is n.p.o. at this time. Dietary consult is requested. - Time Anticipated Discharge Disposition: Home with Home Health Anticipated Discharge Timeframe: within 72 hours
[2020-05-24 13:44] LABS: PATH REVIEW PATHOLOGIST REVIEWED
[2020-05-24] MEDS ORDERED: PHENYTOIN SODIUM INJ/PF 100 MG/2 ML SDV IV SCH (14:00)
--- NOTE | 2020-05-24 14:44 | EKG REPORT ---
SEVERITY:- ABNORMAL ECG - SINUS RHYTHM RIGHT AXIS DEVIATION LOW VOLTAGE IN FRONTAL LEADS NONSPECIFIC T ABNORMALITIES, ANT-LAT LEADS BORDERLINE PROLONGED QT INTERVAL : Confirmed by: Micaela Zaidi MD 24-May-2020 14:43:40
[2020-05-24] MEDS: DEXAMETHASONE SOD PHOSPHATE INJ 4 MG/1 ML VIAL IV SCH ×3 (16:05→23:31)
[2020-05-24] MEDS: PANTOPRAZOLE SODIUM 40 MG VIAL IV SCH ×2 (16:20→22:55)
[2020-05-24] MEDS ORDERED: LEVETIRACETAM 500 MG/NACL-ISO 500 MG/100 ML RTUPB IV SCH (18:30)
--- NOTE | 2020-05-24 18:54 | NEURO WORKBENCH EEG REPORT ---
EEG Report Patient: Rachel Rodas ID: [id number] Referring Doctor: Maged Peñaloza Date: 05/24/2020 Reason for study: Evaluate Epileptiform activity Medications: Decadron, Lovenox, Folvite, Lacosamide, Keppra, Protonix History: This is a 74 year old female with a history of anorexia, urinary retention, thyroid disease, right side paralysis, HTN, lung cancer with mets to the brain, GERD, anemia, and altered mental status. This EEG was requested for evaluation of epileptiform activity. EEG Interpretation This EEG shows electroclinical status-epilepticus. There were spontaneous eye openings and closings. The EEG is dominated by continuous approximately 0.5- 2.0 Hz Generalized Periodic Discharges (GPDs). The clinical correlation to these GPDs on video shows time-locked right shoulder twitching. Excluding the GPDs, the remainder of the background EEG shows diffuse polymorphic delta-theta activity. There is no posterior dominant rhythm. There were no obvious asymmetries in amplitude or frequencies. Photic stimulation was done and no photic driving was not noted. There was no normal sleep architecture present (no vertex waves, K-complexes, POSTs, or sleep spindles). This EEG is consistent with electroclinical status- epilepticus due to the constant GPDs with clinical correlation. There was persistent artifact in the EKG trace prohibiting meaningful interpretation. I cannot discern if there is a regular or irregular rhythm based upon this procedure. EEG Impression This is a markedly abnormal EEG and consistent with electroclinical status- epilepticus. Generalized Periodic Discharges (GPDs) are commonly seen in diffuse encephalopathy from various etiologies including (but not limited to) hypoxic- ischemic injury, drug intoxication, metabolic derangements (such as hepatic or renal encephalopathy), central nervous system infections, and as the terminal EEG sign of generalized convulsive status epilepticus. Structural cerebral abnormalities are also in the differential. In this EEG, the GPDs appear most consistent and diagnostic of electroclinical status-epilepticus. However, clinical correlation with the above underlying possible etiologies is advised. MRI of the brain is warranted as possible. Treatment for status-epilepticus under the typical treatment regimen is warranted including Dilantin and/or Depakote. It is understood that continuous EEG monitoring (although warranted) is not possible at this facility. Follow-up EEG after appropriate medical management is advised. These findings were discussed with on the phone with Dr. Maged Peñaloza at 17:53 eastern time. INTERPRETING NEUROLOGIST: Lukasz Jose MD Board certified by the [place] [employer] in Neurology, Clinical Neurophysiology, and Sleep Medicine [facility]
[2020-05-24] MEDS ORDERED: LEVETIRACETAM 500 MG/NACL-ISO 500 MG/100 ML RTUPB IV ONE (19:00)
[2020-05-24] MEDS ORDERED: HYDROCODONE BIT/HOMATROPINE 5-1.5 MG TABLET PO PRN (20:25)
[2020-05-24] MEDS: CEFEPIME 1 GM/D5W RTU 1 GM/50 ML RTUPB IV SCH (20:28)
--- NOTE | 2020-05-24 20:42 | PDOC CONSULTATION ---
Consultation Consult Date: 05/24/20 Attending physician:: KHRIS TIDWELL Provider Consulted: SIDNEY MILLAN Consult reason:: dyspnea History of Present Illness Admission Date/PCP: 05/23/20 20:08 KHRIS TIDWELL MD History of Present Illness: ZIGGY TIDWELL is a 74 year old femaledecling status led to ED visit and subsequent admission.She has become lethargic,unilateral jerking with focal weskness.She has been battling stage 4 lung cancer,CLL,chroic Hyponatemie.She was interactive until [address] scan MRI nondiagnostic for a bleed or brain mass.Recent PET_CT no new metabolic activity. Past Medical History Cardiac Medical History: Reports: Hypertension Denies: Myocardial Infarction Pulmonary Medical History: Denies: Asthma, Tuberculosis Neurological Medical History: Denies: Seizures Malignancy Medical History: Reports: Lung Cancer, Other - CLL GI Medical History: Denies: Hepatitis, Hiatal Hernia Psychiatric Medical History: Denies: Depression Hematology: Reports: Anemia Denies: Sickle Cell Disease Past Surgical History Past Surgical History: Denies: Amputation, Mastectomy, Pacemaker Social History Information Source: [facility] Records Lives with: Family Smoking Status: Never Smoker Frequency of Alcohol Use: None Hx Recreational Drug Use: No Hx Prescription Drug Abuse: No Do you have pets?: No Have you had any respiratory illnesses as a child?: No Have you been exposed to any sick contacts recently?: No Have you had any recent respiratory illnesses?: No Have you travelled outside of [place] in the past 12 months?: No - Advance Directive Resuscitation Status: Do Not Resuscitate Family History Family History: Reviewed & Not Pertinent Parental Family History Reviewed: No Children Family History Reviewed: No Sibling(s) Family History Reviewed.: No Medication/Allergy Allergies/Adverse Reactions: Penicillins Allergy (Unknown, Verified 06/18/13 12:21) Sulfa (Sulfonamide Antibiotics) Allergy (Unknown, Verified 06/18/13 12:21) Review of Systems ROS unobtainable: Due to mental status Physical Exam Vital Signs: Temp Pulse Resp BP Pulse Ox 98.7 F 109 H 18 184/92 H 98 05/24/20 10:00 05/24/20 08:00 05/24/20 08:00 05/24/20 08:00 05/24/20 08:00 Intake & Output 09/05/24/20 05/25/20 06:59 06:59 06:59 Intake Total 100 Output Total 700 Balance 100 -700 Weight 38.6 kg General appearance: PRESENT: no acute distress, disheveled, thin, well-deve loped. ABSENT: cooperative Head exam: PRESENT: atraumatic, normocephalic Eye exam: PRESENT: conjunctiva pale. ABSENT: nystagmus, periorbital swelling, scleral icterus Mouth exam: PRESENT: dry mucosa, neck supple, tongue midline Neck exam: ABSENT: carotid bruit, full ROM, JVD, lymphadenopathy, meningismus, tenderness, thyromegaly, tracheal deviation, tracheostomy, other Respiratory exam: PRESENT: decreased breath sounds, prolonged expiratory phas, rales - L base, rhonchi, unlabored. ABSENT: retraction, stridor, symmetrical, tachypnea Cardiovascular exam: PRESENT: RRR, +S1, +S2 Pulses: PRESENT: normal radial pulses GI/Abdominal exam: PRESENT: soft. ABSENT: firm, mass, rebound, tenderness Extremities exam: ABSENT: calf tenderness, clubbing, joint swelling, tenderness Musculoskeletal exam: ABSENT: ambulatory, deformity, dislocation Neurological exam: PRESENT: altered Psychiatric exam: PRESENT: flat affect Skin exam: PRESENT: dry, warm Results Laboratory Results: 05/24/20 06:50 05/24/20 06:50 05/23/20 05/23/20 05/23/20 19:52 19:52 19:52 WBC 39.0 H* RBC 3.47 L Hgb 10.2 L Hct 31.5 L MCV 91 MCH 29.3 MCHC 32.3 RDW 16.3 H Plt Count 429 Seg Neutrophils % Not Reportable Sodium 126.0 L Potassium 4.8 Chloride 96 L Carbon Dioxide 23 Anion Gap 7 BUN 19 Creatinine 0.81 Est GFR ( Amer) > 60 Glucose 130 H Lactic Acid 1.6 Calcium 8.8 Ionized Calcium Jose Phosphorus Magnesium 2.2 Total Bilirubin 0.4 AST 128 H Alkaline Phosphatase 338 H Ammonia Total Protein 5.5 L Albumin 3.0 L TSH Urine Color Urine Appearance Urine pH Ur Specific [place] Urine Protein Urine Glucose (UA) Urine Ketones Urine Blood Urine Nitrite Ur Leukocyte Esterase Urine WBC (Auto) Urine RBC (Auto) 05/23/20 05/23/20 05/23/20 19:55 20:11 22:06 WBC RBC Hgb Hct MCV MCH MCHC RDW Plt Count Seg Neutrophils % Sodium Potassium Chloride Carbon Dioxide Anion Gap BUN Creatinine Est GFR ( Amer) Glucose Lactic Acid Calcium Ionized Calcium Jose 1.15 Phosphorus Magnesium Total Bilirubin AST Alkaline Phosphatase Ammonia Total Protein Albumin TSH 1.05 Urine Color YELLOW Urine Appearance CLEAR Urine pH 6.0 Ur Specific [place] 1.011 Urine Protein NEGATIVE Urine Glucose (UA) NEGATIVE Urine Ketones NEGATIVE Urine Blood NEGATIVE Urine Nitrite NEGATIVE Ur Leukocyte Esterase NEGATIVE Urine WBC (Auto) 1 Urine RBC (Auto) 0 05/24/20 05/24/20 05/24/20 06:50 06:50 06:50 WBC 27.4 H RBC 3.23 L Hgb 9.6 L Hct 29.3 L MCV 91 MCH 29.7 MCHC 32.7 RDW 16.6 H Plt Count 378 Seg Neutrophils % Not Reportable Sodium 128.9 L Potassium 4.8 Chloride 99 Carbon Dioxide 28 Anion Gap 2 L BUN 15 Creatinine 0.72 Est GFR ( Amer) > 60 Glucose 79 Lactic Acid Calcium 7.8 L Ionized Calcium Jose Phosphorus 3.4 Magnesium 1.7 Total Bilirubin 0.4 AST 64 H Alkaline Phosphatase 261 H Ammonia < 8.7 L Total Protein 4.7 L Albumin 2.5 L TSH Urine Color Urine Appearance Urine pH Ur Specific [place] Urine Protein Urine Glucose (UA) Urine Ketones Urine Blood Urine Nitrite Ur Leukocyte Esterase Urine WBC (Auto) Urine RBC (Auto) Impressions: Abdomen/Pelvis CT 05/24/20 00:00 IMPRESSION: Increasing left pleural effusion. Complete collapse of left lower lobe as described. IMPRESSION: No acute findings in the abdomen or pelvis. The study is degraded by respiratory motion. Chest CT 05/24/20 00:00 IMPRESSION: Increasing left pleural effusion. Complete collapse of left lower lobe as described. IMPRESSION: No acute findings in the abdomen or pelvis. The study is degraded by respiratory motion. Head CT 05/24/20 00:00 IMPRESSION: 1. Small metastatic foci in the left cerebral hemisphere are again noted but less apparent on the current study. This in part is due to lack of IV contrast. 2. No intracranial hemorrhage. No midline shift. EVIDENCE OF ACUTE STROKE: NO. Assessment & Plan - Diagnosis (1) Pleural effusion on left Is this a current diagnosis for this admission?: Yes Plan: If no too agressive would suggest a ultrasound of the left hemithorax plus minus thoracentesis as this may be a cause of her leukocytosis(unrelated to bm stimulation) and altered mental status outpost obstructive pneumonitis with an empyema (2) Chronic hyponatremia Is this a current diagnosis for this admission?: Yes Plan: Relatively stable (3) Stage IV squamous cell carcinoma of lung Qualifiers: Laterality: unspecified laterality Qualified Code(s): C34.90 - Malignant neoplasm of unspecified part of unspecified bronchus or lung Is this a current diagnosis for this admission?: Yes Plan: As per oncology questionable [employer] mets due to some neurological signs however this cannot be verified with MRI or CT scan (4) Cough Is this a current diagnosis for this admission?: Yes Plan: hycosamine (5) History of chronic lymphocytic leukemia Is this a current diagnosis for this admission?: Yes Plan: followed by oncology - Time Time Spent with patient: 50 min Time Spent: 50 to 70 Minutes
[2020-05-24] MEDS ORDERED: LACOSAMIDE IV SCH (22:00)
[2020-05-24] MEDS ORDERED: LACOSAMIDE INJ/PF 200 MG/20 ML SDV IV SCH (22:00)
[2020-05-24] MEDS ORDERED: NORMAL SALINE IV SCH (22:00)
[2020-05-24] MEDS: LEVETIRACETAM 1000 MG/NACL-ISO 1,000 MG/100 ML RTUPB IV SCH (22:55)
[2020-05-25] MEDS: NORMAL SALINE 1000 ML 1,000 ML IV PRN ×2 (01:18→16:51)
[2020-05-25] MEDS: CEFEPIME 1 GM/D5W RTU 1 GM/50 ML RTUPB IV SCH ×2 (05:15→17:03)
[2020-05-25 06:55] LABS: HEMATOCRIT 26.3 % (36.0-47.0); HEMOGLOBIN 8.8 g/dL (12.0-15.5); MEAN CORPUSCULAR HEMOGLOBIN 30.4 pg (27.0-33.4); MEAN CORPUSCULAR HGB CONC 33.4 g/dL (32.0-36.0); MEAN CORPUSCULAR VOLUME 91 fl (80-97); PLATELET COUNT 337 10^3/uL (150-450); RED BLOOD COUNT 2.89 10^6/uL (3.72-5.28); RED CELL DISTRIBUTION WIDTH 16.6 % (11.5-14.0); WHITE BLOOD COUNT 20.7 10^3/uL (4.0-10.5)
[2020-05-25 07:05] LABS: ALBUMIN 2.1 g/dL (3.5-5.0); ALKALINE PHOSPHATASE 184 U/L (38-126); ANION GAP 6 (5-19); ASPARTATE AMINO TRANSFERASE 49 U/L (14-36); BILIRUBIN,DIRECT 0.4 mg/dL (0.0-0.4); BILIRUBIN,TOTAL 0.5 mg/dL (0.2-1.3); BLOOD UREA NITROGEN 14 mg/dL (7-20); CARBON DIOXIDE 21 mmol/L (22-30); CHLORIDE 101 mmol/L (98-107); GLUCOSE 109 mg/dL (75-110); TOTAL PROTEIN 4.2 g/dL (6.3-8.2)
[2020-05-25 07:17] LABS: POTASSIUM 3.8 mmol/L (3.6-5.0)
[2020-05-25 07:18] LABS: CALCIUM 6.7 mg/dL (8.4-10.2)
[2020-05-25 07:37] LABS: ABSOLUTE LYMPHOCYTES# (MANUAL) 4.8 10^3/uL (0.5-4.7); BASOPHILS % (MANUAL) 0 % (0-2); EOSINOPHILS % (MANUAL) 0 % (0-6); LYMPHOCYTES % (MANUAL) 23 % (13-45); MONOCYTES % (MANUAL) 0 % (3-13); NUCLEATED RED BLOOD CELLS 2 /100 WBC (0); SEGMENTED NEUTROPHILS % (MAN) 77 % (42-78); TOTAL CELLS COUNTED 100
[2020-05-25 07:39] LABS: ANISOCYTOSIS 1+; POLYCHROMASIA 1+
[2020-05-25 07:40] LABS: PLATELET COMMENT ADEQUATE; PLATELET LARGE PRESENT
[2020-05-25 07:41] LABS: OVALOCYTES SLIGHT
--- NOTE | 2020-05-25 08:50 | PDOC PROGRESS REPORT ---
Subjective Progress Note for:: 05/25/20 Subjective:: Pt doing slightly better, seems to track now, following some commands. Still w/ mild epileptic activity. Today had long discussion w/ family. Reason For Visit: WEAKNESS,DEHYDRATION,PERSISTENT HEMIPARESIS Physical Exam Vital Signs: Temp Pulse Resp BP Pulse Ox 98.0 F 79 12 132/91 H 99 05/25/20 07:56 05/25/20 07:56 05/25/20 07:56 05/25/20 07:56 05/25/20 07:56 Intake & Output 05/24/20 05/25/20 05/26/20 06:59 06:59 06:59 Intake Total 100 2500 Output Total 1800 Balance 100 700 Weight 38.6 kg 38.6 kg General appearance: PRESENT: no acute distress, well-developed, well-nourished Head exam: PRESENT: atraumatic, normocephalic Eye exam: PRESENT: conjunctiva pink, EOMI, PERRLA. ABSENT: scleral icterus Ear exam: PRESENT: normal external ear exam Mouth exam: PRESENT: moist, tongue midline Neck exam: ABSENT: carotid bruit, JVD, lymphadenopathy, thyromegaly Respiratory exam: PRESENT: clear to auscultation neelima. ABSENT: rales, rhonchi, wheezes Cardiovascular exam: PRESENT: RRR. ABSENT: diastolic murmur, rubs, systolic murmur Pulses: PRESENT: normal dorsalis pedis pul Vascular exam: PRESENT: normal capillary refill GI/Abdominal exam: PRESENT: normal bowel sounds, soft. ABSENT: distended, guarding, mass, organolmegaly, rebound, tenderness Rectal exam: PRESENT: deferred Extremities exam: PRESENT: full ROM. ABSENT: calf tenderness, clubbing, pedal edema Neurological exam: PRESENT: alert, awake, oriented to person, oriented to place, oriented to time, oriented to situation, CN II-XII grossly intact. ABSENT: motor sensory deficit Psychiatric exam: PRESENT: appropriate affect, normal mood. ABSENT: homicidal ideation, suicidal ideation Skin exam: PRESENT: dry, intact, warm. ABSENT: cyanosis, rash Results Laboratory Results: 05/25/20 06:40 05/25/20 06:40 05/25/20 05/25/20 05/25/20 06:40 06:40 06:40 WBC 20.7 H RBC 2.89 L Hgb 8.8 L Hct 26.3 L MCV 91 MCH 30.4 MCHC 33.4 RDW 16.6 H Plt Count 337 Seg Neutrophils % Not Reportable Sodium 128.2 L Potassium 3.8 D Chloride 101 Carbon Dioxide 21 L Anion Gap 6 BUN 14 Creatinine 0.60 Est GFR ( Amer) > 60 Glucose 109 Calcium 6.7 L* Total Bilirubin 0.5 AST 49 H Alkaline Phosphatase 184 H Total Protein 4.2 L Albumin 2.1 L PTH Intact 324.6 H Impressions: Abdomen/Pelvis CT 05/24/20 00:00 IMPRESSION: Increasing left pleural effusion. Complete collapse of left lower lobe as described. IMPRESSION: No acute findings in the abdomen or pelvis. The study is degraded by respiratory motion. Chest CT 05/24/20 00:00 IMPRESSION: Increasing left pleural effusion. Complete collapse of left lower lobe as described. IMPRESSION: No acute findings in the abdomen or pelvis. The study is degraded by respiratory motion. Head CT 05/24/20 00:00 IMPRESSION: 1. Small metastatic foci in the left cerebral hemisphere are again noted but less apparent on the current study. This in part is due to lack of IV contrast. 2. No intracranial hemorrhage. No midline shift. EVIDENCE OF ACUTE STROKE: NO. Assessment & Plan - Diagnosis (1) Generalized weakness Is this a current diagnosis for this admission?: Yes Plan: COnt hydration (2) Hemiparesis Qualifiers: Hemiparesis etiology: unspecified Hemiparesis laterality: right dominant side Qualified Code(s): G81.91 - Hemiplegia, unspecified affecting right dominant side Is this a current diagnosis for this admission?: Yes Plan: Probable progressive dx causing status epilepticus, d/w family (3) Chronic hyponatremia Is this a current diagnosis for this admission?: Yes Plan: Dr. 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
--- NOTE | 2020-05-25 09:33 | PDOC PROGRESS REPORT ---
Subjective Progress Note for:: 05/25/20 Subjective:: 74 year old female past medical history of hypertension, hypothyroidism, chronic hyponatremia, anxiety, CLL and stage IV lung cancer with known metastasis to brain status post chemoradiation, recently restarted on chemotherapy, currently on fifth cycle, last chemotherapy 2 weeks ago, who was sent to ED by her oncologist Dr. Almonte for evaluation of generalized weakness, right upper and lower extremity weakness, altered mental status, and electrolyte abnormalities. Source of history is Dr. Rodas her son who is present in the room, as per son patient was at her baseline ambulating with the help of her and p.o. tolerant, but recently patient has been noted to being more altered,having very low appetite with generalized weakness and right-sided upper and lower extremity weakness and involuntary contractions. Patient has not had any exposure to COVI D, is not complaining of any nausea, vomiting, diarrhea, constipation, fever, chills, chest pain, shortness of breath. Initially it was thought that her right upper and lower extremity weakness and a ltered mental status could be related to CVA or worsening metastatic brain lesion and was started on dexamethasone but on 05/22/2020 MRI/MRA head was negative for any acute stroke or any new lesions. Patient also had a PET scan on 03/28/2020 comparison on 01/04/2020 which showed favorable response to therapy, increased metabolic activity confined to the primary lung mass. Patient had outpatient CBC CMP which showed chronic hyponatremia, hypomagnesemia and hypocalcemia, electrolytes were repleted and patient was sent home. As patient did not improve much she was brought to ED today. In ED she was noted to have afebrile, normotensive, and SPO2 of 100% on room air. WBC [place] 39,000 [place] [address] on 10/29/2018. Sodium 126.0 with baseline of 124-132 and elevated LFTs, otherwise lactic acid, TSH, calcium and magnesium all within normal limits. Patient does not have any urinary retention but when in ED a [place] patient was inserted she produced about 1700 cc of urine. Urinalysis was negative for any infection. On my encounter patient is comfortably resting in bed, in no apparent distress, very pleasant and cooperative with physical examination, she has visible right upper and lower extremity involuntary contraction,unfortunately does not communicate much due to language barrier, as per Dr. Rodas her son patient has improved since being admitted to ED. Dr. Rodas her son who was present in the room also mentions that her mother CODE STATUS is DNR/DNI. I was able to talk to Dr. Almonte her oncologist who think patient will only need rehydration and correction of her electrolyte abnormalities and will not need any antibiotics and there is no sign infection even though she has elevated leukocytosis which explained by her chronic CLL p.o. dexamethasone which was started recently. No further imaging recommended. 05/24/20-CT head is negative. Recent MRI/MRA negative for stroke. On examination patient is having the seizure-like activity affecting the right side of the body. Not responding to verbal commands. Right gaze is fixed. Patient received Keppra IV push, Dilantin IV push, lorazepam as needed to start her on Vimpat from this evening. EEG was requested. Patient will be n.p.o. Started on IV hydralazine 10 mg every 4 hours as needed for systolic blood pressure more than 170. Keep her n.p.o. started on IV Protonix 40 mg twice a day. aspiration, seizure precautions will be requested. 05/25/20-patient more alert more awake this morning compared to yesterday. Continues to have seizure activity. Plan is to start her on IV Dilantin 3 mg daily, continue Keppra 1 g IV twice a day. PRN lorazepam IV on board. To try nectar thickened liquids today. Serum calcium is 6.7, albumin is 2.1. To give 2 g of IV calcium today. Reason For Visit: WEAKNESS,DEHYDRATION,PERSISTENT HEMIPARESIS Physical Exam Vital Signs: Temp Pulse Resp BP Pulse Ox 98.0 F 79 12 132/91 H 99 05/25/20 07:56 05/25/20 07:56 05/25/20 07:56 05/25/20 07:56 05/25/20 07:56 Intake & Output 05/24/20 05/25/20 05/26/20 06:59 06:59 06:59 Intake Total 100 2500 Output Total 1800 Balance 100 700 Weight 38.6 kg 38.6 kg General appearance: PRESENT: no acute distress, disheveled, thin Head exam: PRESENT: atraumatic Eye exam: PRESENT: conjunctiva pale, PERRLA Mouth exam: PRESENT: moist, tongue midline Teeth exam: PRESENT: poor dentation Neck exam: ABSENT: carotid bruit, JVD, lymphadenopathy, thyromegaly Respiratory exam: PRESENT: decreased breath sounds Cardiovascular exam: PRESENT: RRR. ABSENT: diastolic murmur, rubs, systolic murmur GI/Abdominal exam: PRESENT: normal bowel sounds, soft. ABSENT: distended, guarding, mass, organolmegaly, rebound, tenderness Rectal exam: PRESENT: deferred Neurological exam: PRESENT: awake, other - Continue to have seizure activity. Results Laboratory Results: 05/25/20 06:40 05/25/20 06:40 05/25/20 05/25/20 05/25/20 06:40 06:40 06:40 WBC 20.7 H RBC 2.89 L Hgb 8.8 L Hct 26.3 L MCV 91 MCH 30.4 MCHC 33.4 RDW 16.6 H Plt Count 337 Seg Neutrophils % Not Reportable Sodium 128.2 L Potassium 3.8 D Chloride 101 Carbon Dioxide 21 L Anion Gap 6 BUN 14 Creatinine 0.60 Est GFR ( Amer) > 60 Glucose 109 Calcium 6.7 L* Total Bilirubin 0.5 AST 49 H Alkaline Phosphatase 184 H Total Protein 4.2 L Albumin 2.1 L PTH Intact 324.6 H Impressions: Abdomen/Pelvis CT 05/24/20 00:00 IMPRESSION: Increasing left pleural effusion. Complete collapse of left lower lobe as described. IMPRESSION: No acute findings in the abdomen or pelvis. The study is degraded by respiratory motion. Chest CT 05/24/20 00:00 IMPRESSION: Increasing left pleural effusion. Complete collapse of left lower lobe as described. IMPRESSION: No acute findings in the abdomen or pelvis. The study is degraded by respiratory motion. Head CT 05/24/20 00:00 IMPRESSION: 1. Small metastatic foci in the left cerebral hemisphere are again noted but less apparent on the current study. This in part is due to lack of IV contrast. 2. No intracranial hemorrhage. No midline shift. EVIDENCE OF ACUTE STROKE: NO. Assessment and Plan - Diagnosis (1) Seizure disorder Is this a current diagnosis for this admission?: Yes Plan: 05/24/2020-patient having the active continuous seizure activity received IV Dilantin, IV Keppra, also on IV lorazepam as needed. Plan is to start Vimpat from evening. EEG was requested. Aspiration, seizure precautions will be requested. 05/25/2020-to give Dilantin 300 mg IV daily, Keppra thousand milligrams twice daily. EEG yesterday indicates status epilepticus. Improvement in seizure activity is noticed compared to yesterday. Patient is more alert more awake this morning. (2) Chronic hyponatremia Is this a current diagnosis for this admission?: Yes Plan: Chronic hyponatremia. Likely due to underlying malignancy. Sodium seems to be at baseline. Continue normal saline. Monitor sodium level. Monitor for seizure. 05/24/2020-serum sodium is 128.9. Chronic hyponatremia most likely secondary to underlying malignancy. 05/25/2020-serum sodium is 128.2. Hyponatremia is resolved. (3) Hypertension Is this a current diagnosis for this admission?: Yes Plan: Seems dehydrated. Mildly hypertensive. Continue fluid resuscitation guided by volume status. Resume home meds. PRN hydralazine. Adjust meds as needed. 05/24/2020-patient has history of chronic essential hypertension systolic blood pressure close to 200. Started on IV hydralazine 10 mg every 4 PRN for systolic blood pressure more than 170. It may be a contributing factor for seizure. 05/25/2020-blood pressure this morning is 133/57. Stable. (4) Hypocalcemia Is this a current diagnosis for this admission?: Yes Plan: 05/24/2020-corrected serum calcium is within normal limits. 05/25/2020-serum calcium 6.7, serum albumin is 2.1, PTH is elevated. To give her 2 g of IV calcium this morning. (5) Hypomagnesemia Is this a current diagnosis for this admission?: Yes Plan: 05/24/2020-serum magnesium is 1.7 to give 1 g of IV magnesium at this time. (6) History of chronic lymphocytic leukemia Is this a current diagnosis for this admission?: Yes Plan: History of CLL. Followed by Dr. Almonte as outpatient. Presenting with leukocytosis but no sign of acute infection. Vitals WNL. Patient also started on dexamethasone 4 mg p.o. daily as outpatient which may also explain her worsening leukocytosis. Blood culture. No antibiotic indicated at this point, will start on empiric IV antibiotics guided by clinical symptoms and culture results. 05/24/2020-patient has history of CLL. Dr. Almonte on board. WBC count is elevated most likely secondary to CLL. Afebrile. Not on antibiotics at this time. 05/25/20-WBC count improved to 20,000. Patient is on cefepime at this time. (7) Stage IV squamous cell carcinoma of lung Qualifiers: Laterality: unspecified laterality Qualified Code(s): C34.90 - Malignant neoplasm of unspecified part of unspecified bronchus or lung Is this a current diagnosis for this admission?: Yes Plan: Recurrent. Status post chemoradiation. Currently on chemotherapy for cycle. Last chemotherapy 2 weeks ago. Followed by Dr. Almonte as outpatient. Oncology consulted. Follow-up recommendations. (8) Protein-energy malnutrition Qualifiers: Protein-calorie malnutrition severity: severe Qualified Code(s): E43 - Unspecified severe protein-calorie malnutrition Is this a current diagnosis for this admission?: Yes Plan: 05/24/2020-patient BMI is less than 17. On examination wasting of the temporalis muscles, quadriceps muscles, deltoid muscle seen. Patient is n.p.o. at this time. Dietary consult is requested. - Time Anticipated Discharge Disposition: Home, Self Care Anticipated Discharge Timeframe: within 48 hours
[2020-05-25] MEDS ORDERED: PHENYTOIN SODIUM INJ/PF 100 MG/2 ML SDV IV SCH (10:00)
[2020-05-25] MEDS ORDERED: FAMOTIDINE INJ/PF 20 MG/2 ML SDV IV SCH (10:00)
[2020-05-25] MEDS ORDERED: NORMAL SALINE IV SCH (10:00)
[2020-05-25] MEDS ORDERED: PHENYTOIN 100 MG/4 ML SUSP PO SCH (10:00)
[2020-05-25] MEDS ORDERED: PHENYTOIN SODIUM IV SCH (10:00)
[2020-05-25] MEDS: DEXAMETHASONE SOD PHOSPHATE INJ 4 MG/1 ML VIAL IV SCH (10:30)
[2020-05-25] MEDS: PANTOPRAZOLE SODIUM 40 MG VIAL IV SCH ×2 (11:30→22:28)
[2020-05-25] MEDS: CALCIUM GLUC IN NACL, ISO-OSM 1 GM/50 ML RTUPB IV SCH ×2 (11:36→13:22)
[2020-05-25] MEDS ORDERED: MAGNESIUM SULFATE INJ 8 MEQ/2 ML IV ONE (12:22)
[2020-05-25] MEDS ORDERED: MAGNESIUM SULFATE/D5W 1 GM/100 ML RTUPB IV ONE (12:30)
--- NOTE | 2020-05-25 12:31 | PDOC PROGRESS REPORT ---
Subjective Progress Note for:: 05/25/20 Reason For Visit: Patient seen today. Her son is by the bedside. She looks more awake alert and more responsive to questions in her dialect. However she still continues to have tonic jerking movements of the right half of the body. Apparently EEG showed seizure activity and as per discussions Dr. Rodas has had with the neurologist he wants to load her up with IV Dilantin followed by increasing dose of Keppra. Besides that her calcium is dropping and her magnesium yesterday was low normal. Other labs on review shows she has got a high PTH. Her blood pressure was electively stable until this morning when it showed up to 180 systolic. Physical Exam Vital Signs: Temp Pulse Resp BP Pulse Ox 98.1 F 109 H 16 187/71 H 97 05/25/20 11:31 05/25/20 12:08 05/25/20 12:08 05/25/20 11:31 05/25/20 12:08 Intake & Output 05/24/20 05/25/20 05/26/20 06:59 06:59 06:59 Intake Total 100 2500 Output Total 1800 Balance 100 700 Weight 38.6 kg 38.6 kg General appearance: PRESENT: mild distress Respiratory exam: PRESENT: clear to auscultation neelima, decreased breath sounds. ABSENT: crackles Cardiovascular exam: PRESENT: +S1, +S2. ABSENT: rubs GI/Abdominal exam: PRESENT: normal bowel sounds, soft. ABSENT: organomegaly, tenderness Neurological exam: PRESENT: awake, other - Seizure-like activity affecting the right half of the body but patient mentation is much better than yesterday. Skin exam: ABSENT: erythema, mottled, petechiae Results Laboratory Results: 05/25/20 06:40 05/25/20 06:40 05/25/20 05/25/20 05/25/20 06:40 06:40 06:40 WBC 20.7 H RBC 2.89 L Hgb 8.8 L Hct 26.3 L MCV 91 MCH 30.4 MCHC 33.4 RDW 16.6 H Plt Count 337 Seg Neutrophils % Not Reportable Sodium 128.2 L Potassium 3.8 D Chloride 101 Carbon Dioxide 21 L Anion Gap 6 BUN 14 Creatinine 0.60 Est GFR ( Amer) > 60 Glucose 109 Calcium 6.7 L* Total Bilirubin 0.5 AST 49 H Alkaline Phosphatase 184 H Total Protein 4.2 L Albumin 2.1 L PTH Intact 324.6 H Impressions: Abdomen/Pelvis CT 05/24/20 00:00 IMPRESSION: Increasing left pleural effusion. Complete collapse of left lower lobe as described. IMPRESSION: No acute findings in the abdomen or pelvis. The study is degraded by respiratory motion. Chest CT 05/24/20 00:00 IMPRESSION: Increasing left pleural effusion. Complete collapse of left lower lobe as described. IMPRESSION: No acute findings in the abdomen or pelvis. The study is degraded by respiratory motion. Head CT 05/24/20 00:00 IMPRESSION: 1. Small metastatic foci in the left cerebral hemisphere are again noted but less apparent on the current study. This in part is due to lack of IV contrast. 2. No intracranial hemorrhage. No midline shift. EVIDENCE OF ACUTE STROKE: NO. Assessment & Plan - Diagnosis (1) Seizure disorder Is this a current diagnosis for this admission?: Yes Plan: Even though patient is overall better she still continues to have tonic seizure- like activity affecting the right half of the body. However mentation is a whole lot better and she is more verbally responsive to questions which is encouraging. As per discussions Dr. Rodas has had with neurologist elsewhere patient is going to be loaded further with Dilantin followed by increasing dose of Keppra. Hopefully we can control the seizures and postictal state, that she will be much more awake and responsive and in a more comfortable position to be taken back home. (2) Hypocalcemia Is this a current diagnosis for this admission?: Yes Plan: Low calcium today and is being replaced intravenously. Also will be starting calcitriol given high PTH. I believe the patient has got stage IV CKD even though her creatinine is normal for lots of reasons. (3) Hypomagnesemia Is this a current diagnosis for this admission?: Yes Plan: Low normal yesterday. Give a gram of IV mag sulfate today and follow-up with labs tomorrow. (4) Hypertension Is this a current diagnosis for this admission?: Yes Plan: Was under good control until this morning when she shot up to 180 systolic. Repeat her lab her blood pressure readings and if it is still high will dose her with 10 mg of IV hydralazine. Discussed with nurse. (5) Leukocytosis, unspecified Qualifiers: Leukocytosis type: unspecified Qualified Code(s): D72.829 - Elevated white blood cell count, unspecified Plan: Improving. (6) Malnutrition Qualifiers: Malnutrition type: protein-calorie malnutrition Protein-calorie malnutrition severity: moderate Qualified Code(s): E44.0 - Moderate protein- calorie malnutrition Is this a current diagnosis for this admission?: Yes Plan: Status quo. (7) Stage IV squamous cell carcinoma of lung Qualifiers: Laterality: unspecified laterality Qualified Code(s): C34.90 - Malignant neoplasm of unspecified part of unspecified bronchus or lung Is this a current diagnosis for this admission?: Yes Plan: With brain mets. As per Dr. Almonte/ryne oncologist.I think the overall consensus that is being reached by the family as well as with the treating phys icians especially Dr. Almonte/ryne oncologist is that she is reaching end-of-life situation and hospice should be consulted. Her son Rodas is also the opinion that no further intense or heroic measures should be instituted. She is already a DNR/DNI.I completely agree with this assessment. (8) Urinary retention Is this a current diagnosis for this admission?: Yes Plan: Resolved with placement of Ruvalcaba catheter.
[2020-05-25] MEDS: LEVETIRACETAM 1000 MG/NACL-ISO 1,000 MG/100 ML RTUPB IV SCH ×2 (12:40→22:28)
[2020-05-25] MEDS: FOLIC ACID 1 MG TABLET PO SCH (17:02)
[2020-05-25] MEDS: CALCITRIOL 0.25 MCG CAPSULE PO SCH (17:03)
[2020-05-26] MEDS: NORMAL SALINE 1000 ML 1,000 ML IV PRN (03:35)
[2020-05-26] MEDS: CEFEPIME 1 GM/D5W RTU 1 GM/50 ML RTUPB IV SCH ×2 (05:59→19:21)
[2020-05-26 07:12] LABS: HEMATOCRIT 28.8 % (36.0-47.0); HEMOGLOBIN 9.4 g/dL (12.0-15.5); MEAN CORPUSCULAR HEMOGLOBIN 29.7 pg (27.0-33.4); MEAN CORPUSCULAR HGB CONC 32.7 g/dL (32.0-36.0); MEAN CORPUSCULAR VOLUME 91 fl (80-97); PLATELET COUNT 394 10^3/uL (150-450); RED BLOOD COUNT 3.18 10^6/uL (3.72-5.28); RED CELL DISTRIBUTION WIDTH 16.7 % (11.5-14.0); WHITE BLOOD COUNT 22.9 10^3/uL (4.0-10.5)
[2020-05-26 07:28] LABS: ALBUMIN 2.2 g/dL (3.5-5.0); ALKALINE PHOSPHATASE 180 U/L (38-126); ANION GAP 8 (5-19); ASPARTATE AMINO TRANSFERASE 40 U/L (14-36); BILIRUBIN,DIRECT 0.4 mg/dL (0.0-0.4); BILIRUBIN,TOTAL 0.5 mg/dL (0.2-1.3); BLOOD UREA NITROGEN 11 mg/dL (7-20); CARBON DIOXIDE 19 mmol/L (22-30); CHLORIDE 101 mmol/L (98-107); POTASSIUM 3.7 mmol/L (3.6-5.0); TOTAL PROTEIN 4.5 g/dL (6.3-8.2)
[2020-05-26 07:53] LABS: ABSOLUTE LYMPHOCYTES# (MANUAL) 4.4 10^3/uL (0.5-4.7); ABSOLUTE MONOCYTES # (MANUAL) 0.7 10^3/uL (0.1-1.4); BASOPHILS % (MANUAL) 0 % (0-2); EOSINOPHILS % (MANUAL) 0 % (0-6); HYPOCHROMASIA SLIGHT; LYMPHOCYTES % (MANUAL) 19 % (13-45); MONOCYTES % (MANUAL) 3 % (3-13); PLATELET COMMENT ADEQUATE; POLYCHROMASIA 1+; SEGMENTED NEUTROPHILS % (MAN) 78 % (42-78); TOTAL CELLS COUNTED 100
[2020-05-26 07:54] LABS: ANISOCYTOSIS 1+
[2020-05-26 08:01] LABS: GLUCOSE 54 mg/dL (75-110)
[2020-05-26 08:02] LABS: CALCIUM 6.9 mg/dL (8.4-10.2)
--- NOTE | 2020-05-26 08:21 | PDOC PROGRESS REPORT ---
Subjective Progress Note for:: 05/26/20 Subjective:: Overnight seizure activity seem to be better. She is having EEG this morning. Dilantin was increased to 500 mg. Reason For Visit: WEAKNESS,DEHYDRATION,PERSISTENT HEMIPARESIS Physical Exam Vital Signs: Temp Pulse Resp BP Pulse Ox 97.5 F 83 18 186/60 H 98 05/25/20 19:52 05/26/20 07:00 05/25/20 19:52 05/25/20 19:52 05/25/20 19:52 Intake & Output 05/25/20 05/26/20 05/27/20 06:59 06:59 06:59 Intake Total 2500 2400 Output Total 1800 1425 Balance 700 975 Weight 38.6 kg 38.6 kg General appearance: PRESENT: no acute distress, well-developed, well-nourished Head exam: PRESENT: atraumatic, normocephalic Eye exam: PRESENT: conjunctiva pink, EOMI, PERRLA. ABSENT: scleral icterus Ear exam: PRESENT: normal external ear exam Mouth exam: PRESENT: moist, tongue midline Neck exam: ABSENT: carotid bruit, JVD, lymphadenopathy, thyromegaly Respiratory exam: PRESENT: clear to auscultation neelima. ABSENT: rales, rhonchi, wheezes Cardiovascular exam: PRESENT: RRR. ABSENT: diastolic murmur, rubs, systolic murmur Pulses: PRESENT: normal dorsalis pedis pul Vascular exam: PRESENT: normal capillary refill GI/Abdominal exam: PRESENT: normal bowel sounds, soft. ABSENT: distended, guarding, mass, organolmegaly, rebound, tenderness Rectal exam: PRESENT: deferred Extremities exam: PRESENT: full ROM. ABSENT: calf tenderness, clubbing, pedal edema Neurological exam: PRESENT: alert, awake, oriented to person, oriented to place, oriented to time, oriented to situation, CN II-XII grossly intact. ABSENT: motor sensory deficit Psychiatric exam: PRESENT: appropriate affect, normal mood. ABSENT: homicidal ideation, suicidal ideation Skin exam: PRESENT: dry, intact, warm. ABSENT: cyanosis, rash Results Laboratory Results: 05/26/20 06:05 05/26/20 06:05 05/26/20 05/26/20 06:05 06:05 WBC 22.9 H RBC 3.18 L Hgb 9.4 L Hct 28.8 L MCV 91 MCH 29.7 MCHC 32.7 RDW 16.7 H Plt Count 394 Seg Neutrophils % Not Reportable Sodium 127.8 L Potassium 3.7 Chloride 101 Carbon Dioxide 19 L Anion Gap 8 BUN 11 Creatinine 0.50 L Est GFR ( Amer) > 60 Glucose 54 L Calcium 6.9 L* Magnesium 1.9 Total Bilirubin 0.5 AST 40 H Alkaline Phosphatase 180 H Total Protein 4.5 L Albumin 2.2 L Impressions: Abdomen/Pelvis CT 05/24/20 00:00 IMPRESSION: Increasing left pleural effusion. Complete collapse of left lower lobe as described. IMPRESSION: No acute findings in the abdomen or pelvis. The study is degraded by respiratory motion. Chest CT 05/24/20 00:00 IMPRESSION: Increasing left pleural effusion. Complete collapse of left lower lobe as described. IMPRESSION: No acute findings in the abdomen or pelvis. The study is degraded by respiratory motion. Head CT 05/24/20 00:00 IMPRESSION: 1. Small metastatic foci in the left cerebral hemisphere are again noted but less apparent on the current study. This in part is due to lack of IV contrast. 2. No intracranial hemorrhage. No midline shift. EVIDENCE OF ACUTE STROKE: NO. Assessment & Plan - Diagnosis (1) Generalized weakness Is this a current diagnosis for this admission?: Yes Plan: Still pretty severe. Continue to follow. (2) Hemiparesis Qualifiers: Hemiparesis etiology: unspecified Hemiparesis laterality: right dominant side Qualified Code(s): G81.91 - Hemiplegia, unspecified affecting right dominant side Is this a current diagnosis for this admission?: Yes Plan: Likely secondary to the seizure activity and postictal phase that is continued (3) Chronic hyponatremia Is this a current diagnosis for this admission?: Yes Plan: Followed by nephrology (4) Lung cancer Qualifiers: Laterality: left Lung location: lower lobe of lung Qualified Code(s): C34.32 - Malignant neoplasm of lower lobe, left bronchus or lung Is this a current diagnosis for this admission?: Yes Plan: No further treatment planned. We will try and give the patient another 2 days to see how she does, to see if she can recover some mental status and physical ability, by Friday if we see that seizure activity is similar even with higher dose Dilantin, we may consider a more comfort care approach. 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 - Time Time Spent with patient: 35 or more minutes
[2020-05-26] MEDS: FOLIC ACID 1 MG TABLET PO SCH (09:43)
[2020-05-26] MEDS: PANTOPRAZOLE SODIUM 40 MG VIAL IV SCH ×2 (09:50→22:13)
[2020-05-26] MEDS: DEXAMETHASONE SOD PHOSPHATE INJ 4 MG/1 ML VIAL IV SCH (09:50)
[2020-05-26] MEDS: LEVETIRACETAM 1000 MG/NACL-ISO 1,000 MG/100 ML RTUPB IV SCH ×2 (09:50→22:13)
[2020-05-26] MEDS ORDERED: CLONIDINE 0.1 MG/24 HR PATCH.TDWK TD SCH (10:00)
[2020-05-26] MEDS ORDERED: PHENYTOIN SODIUM INJ/PF 250 MG/5 ML SDV IV SCH (10:00)
[2020-05-26] MEDS: CALCITRIOL 0.25 MCG CAPSULE PO SCH (10:29)
[2020-05-26] MEDS: PHENYTOIN SODIUM INJ/PF 250 MG/5 ML SDV IV SCH (11:11)
[2020-05-26] MEDS ORDERED: DEXTROSE 50%-WATER 25 GM/50 ML DISP.SYRIN IV ONE (11:31)
[2020-05-26] MEDS ORDERED: DEXTROSE 5%-NORMAL SALINE 1,000 ML IV PRN (11:32)
--- NOTE | 2020-05-26 12:24 | PDOC PROGRESS REPORT ---
Subjective Progress Note for:: 05/26/20 Subjective:: 74 year old female past medical history of hypertension, hypothyroidism, chronic hyponatremia, anxiety, CLL and stage IV lung cancer with known metastasis to brain status post chemoradiation, recently restarted on chemotherapy, currently on fifth cycle, last chemotherapy 2 weeks ago, who was sent to ED by her oncologist Dr. Almonte for evaluation of generalized weakness, right upper and lower extremity weakness, altered mental status, and electrolyte abnormalities. Source of history is Dr. Rodas her son who is present in the room, as per son patient was at her baseline ambulating with the help of her and p.o. tolerant, but recently patient has been noted to being more altered,having very low appetite with generalized weakness and right-sided upper and lower extremity weakness and involuntary contractions. Patient has not had any exposure to COVI D, is not complaining of any nausea, vomiting, diarrhea, constipation, fever, chills, chest pain, shortness of breath. Initially it was thought that her right upper and lower extremity weakness and a ltered mental status could be related to CVA or worsening metastatic brain lesion and was started on dexamethasone but on 05/22/2020 MRI/MRA head was negative for any acute stroke or any new lesions. Patient also had a PET scan on 03/28/2020 comparison on 01/04/2020 which showed favorable response to therapy, increased metabolic activity confined to the primary lung mass. Patient had outpatient CBC CMP which showed chronic hyponatremia, hypomagnesemia and hypocalcemia, electrolytes were repleted and patient was sent home. As patient did not improve much she was brought to ED today. In ED she was noted to have afebrile, normotensive, and SPO2 of 100% on room air. WBC of 39,000 [place] [address] on 10/29/2018. Sodium 126.0 with baseline of 124-132 and elevated LFTs, otherwise lactic acid, TSH, calcium and magnesium all within normal limits. Patient does not have any urinary retention but when in ED a Ruvalcaba patient was inserted she produced about 1700 cc of urine. Urinalysis was negative for any infection. On my encounter patient is comfortably resting in bed, in no apparent distress, very pleasant and cooperative with physical examination, she has visible right upper and lower extremity involuntary contraction,unfortunately does not communicate much due to language barrier, as per Dr. Rodas her son patient has improved since being admitted to ED. Dr. Rodas her son who was present in the room also mentions that her mother CODE STATUS is DNR/DNI. I was able to talk to Dr. Almonte her oncologist who think patient will only need rehydration and correction of her electrolyte abnormalities and will not need any antibiotics and there is no sign infection even though she has elevated leukocytosis which explained by her chronic CLL p.o. dexamethasone which was started recently. No further imaging recommended. 05/24/20-CT head is negative. Recent MRI/MRA negative for stroke. On examination patient is having the seizure-like activity affecting the right side of the body. Not responding to verbal commands. Right gaze is fixed. Patient received Keppra IV push, Dilantin IV push, lorazepam as needed to start her on Vimpat from this evening. EEG was requested. Patient will be n.p.o. Started on IV hydralazine 10 mg every 4 hours as needed for systolic blood pressure more than 170. Keep her n.p.o. started on IV Protonix 40 mg twice a day. aspiration, seizure precautions will be requested. 05/25/20-patient more alert more awake this morning compared to yesterday. Continues to have seizure activity. Plan is to start her on IV Dilantin 3 mg daily, continue Keppra 1 g IV twice a day. PRN lorazepam IV on board. To try nectar thickened liquids today. Serum calcium is 6.7, albumin is 2.1. To give 2 g of IV calcium today. 05/26/2020-patient is still having the continuous seizures. Unable to take anything by mouth. Blood sugars dropped to 54 with decrease IV fluids to D5 normal saline at this time. To give a vitamin B12 injections. Dilantin was increased to 400 mg IV daily. Repeat EEG was done. Latest blood pressure is 142/60. Stable. Reason For Visit: WEAKNESS,DEHYDRATION,PERSISTENT HEMIPARESIS Physical Exam Vital Signs: Temp Pulse Resp BP Pulse Ox 97.5 F 83 18 186/60 H 98 05/25/20 19:52 05/26/20 07:00 05/25/20 19:52 05/25/20 19:52 05/25/20 19:52 Intake & Output 05/25/20 05/26/20 05/27/20 06:59 06:59 06:59 Intake Total 2500 2400 Output Total 1800 1425 Balance 700 975 Weight 38.6 kg 38.6 kg General appearance: PRESENT: no acute distress, disheveled, thin Head exam: PRESENT: atraumatic Eye exam: PRESENT: PERRLA Mouth exam: PRESENT: moist, tongue midline Teeth exam: PRESENT: poor dentation Neck exam: ABSENT: carotid bruit, JVD, lymphadenopathy, thyromegaly Respiratory exam: PRESENT: decreased breath sounds Cardiovascular exam: PRESENT: RRR. ABSENT: diastolic murmur, rubs, systolic murmur Pulses: PRESENT: normal dorsalis pedis pul GI/Abdominal exam: PRESENT: normal bowel sounds, soft. ABSENT: distended, guarding, mass, organolmegaly, rebound, tenderness Rectal exam: PRESENT: deferred Extremities exam: PRESENT: full ROM. ABSENT: calf tenderness, clubbing, pedal edema Neurological exam: PRESENT: altered, other - Patient may have a right-sided weakness. Continue seizure activity affecting the right side of the body. Results Laboratory Results: 05/26/20 06:05 05/26/20 06:05 05/26/20 05/26/20 06:05 06:05 WBC 22.9 H RBC 3.18 L Hgb 9.4 L Hct 28.8 L MCV 91 MCH 29.7 MCHC 32.7 RDW 16.7 H Plt Count 394 Seg Neutrophils % Not Reportable Sodium 127.8 L Potassium 3.7 Chloride 101 Carbon Dioxide 19 L Anion Gap 8 BUN 11 Creatinine 0.50 L Est GFR ( Amer) > 60 Glucose 54 L Calcium 6.9 L* Magnesium 1.9 Total Bilirubin 0.5 AST 40 H Alkaline Phosphatase 180 H Total Protein 4.5 L Albumin 2.2 L Impressions: Abdomen/Pelvis CT 05/24/20 00:00 IMPRESSION: Increasing left pleural effusion. Complete collapse of left lower lobe as described. IMPRESSION: No acute findings in the abdomen or pelvis. The study is degraded by respiratory motion. Chest CT 05/24/20 00:00 IMPRESSION: Increasing left pleural effusion. Complete collapse of left lower lobe as described. IMPRESSION: No acute findings in the abdomen or pelvis. The study is degraded by respiratory motion. Head CT 05/24/20 00:00 IMPRESSION: 1. Small metastatic foci in the left cerebral hemisphere are again noted but less apparent on the current study. This in part is due to lack of IV contrast. 2. No intracranial hemorrhage. No midline shift. EVIDENCE OF ACUTE STROKE: NO. Assessment and Plan - Diagnosis (1) Seizure disorder Is this a current diagnosis for this admission?: Yes Plan: 05/24/2020-patient having the active continuous seizure activity received IV Dilantin, IV Keppra, also on IV lorazepam as needed. Plan is to start Vimpat from evening. EEG was requested. Aspiration, seizure precautions will be requested. 05/25/2020-to give Dilantin 300 mg IV daily, Keppra thousand milligrams twice daily. EEG yesterday indicates status epilepticus. Improvement in seizure activity is noticed compared to yesterday. Patient is more alert more awake this morning. 05/26/20-plan is to increase the Dilantin to 400 mg IV daily. On Keppra 1000 mg twice daily. Repeat EKG was done today. Continuous seizure activity is noted. Patient is n.p.o. at this time. (2) Chronic hyponatremia Is this a current diagnosis for this admission?: Yes Plan: Chronic hyponatremia. Likely due to underlying malignancy. Sodium seems to be at baseline. Continue normal saline. Monitor sodium level. Monitor for seizure. 05/24/2020-serum sodium is 128.9. Chronic hyponatremia most likely secondary to underlying malignancy. 05/25/2020-serum sodium is 128.2. Hyponatremia is resolved. 05/26/20-serum sodium is 127.8. Chronic hyponatremia most likely secondary to poor oral intake and underlying malignancy. (3) Hypertension Is this a current diagnosis for this admission?: Yes Plan: Seems dehydrated. Mildly hypertensive. Continue fluid resuscitation guided by volume status. Resume home meds. PRN hydralazine. Adjust meds as needed. 05/24/2020-patient has history of chronic essential hypertension systolic blood pressure close to 200. Started on IV hydralazine 10 mg every 4 PRN for systolic blood pressure more than 170. It may be a contributing factor for seizure. 05/25/2020-blood pressure this morning is 133/57. Stable. 09/25/2019-latest blood pressure is 148/60. Stable. (4) Hypocalcemia Is this a current diagnosis for this admission?: Yes Plan: 05/24/2020-corrected serum calcium is within normal limits. 05/25/2020-serum calcium 6.7, serum albumin is 2.1, PTH is elevated. To give her 2 g of IV calcium this morning. 05/26/2020-serum calcium is 6.9. Albumin is 2.2. Corrected calcium is within normal limits. (5) Hypomagnesemia Is this a current diagnosis for this admission?: Yes Plan: 05/24/2020-serum magnesium is 1.7 to give 1 g of IV magnesium at this time. 05/26/2020-serum magnesium is 1.9 today. To closely monitor the magnesium levels. (6) History of chronic lymphocytic leukemia Is this a current diagnosis for this admission?: Yes Plan: History of CLL. Followed by Dr. Almonte as outpatient. Presenting with leukocytosis but no sign of acute infection. Vitals WNL. Patient also started on dexamethasone 4 mg p.o. daily as outpatient which may also explain her worsening leukocytosis. Blood culture. No antibiotic indicated at this point, will start on empiric IV antibiotics guided by clinical symptoms and culture results. 05/24/2020-patient has history of CLL. Dr. Almonte on board. WBC count is elevated most likely secondary to CLL. Afebrile. Not on antibiotics at this time. 05/25/20-WBC count improved to 20,000. Patient is on cefepime at this time. 05/26/20-WBC count is more than 22,000. Stable (7) Stage IV squamous cell carcinoma of lung Qualifiers: Laterality: unspecified laterality Qualified Code(s): C34.90 - Malignant neoplasm of unspecified part of unspecified bronchus or lung Is this a current diagnosis for this admission?: Yes Plan: Recurrent. Status post chemoradiation. Currently on chemotherapy for cycle. Last chemotherapy 2 weeks ago. Followed by Dr. Almonte as outpatient. Oncology consulted. Follow-up recommendations. (8) Protein-energy malnutrition Qualifiers: Protein-calorie malnutrition severity: severe Qualified Code(s): E43 - Unspecified severe protein-calorie malnutrition Is this a current diagnosis for this admission?: Yes - Time Anticipated Discharge Disposition: Home, Self Care Anticipated Discharge Timeframe: within 48 hours
[2020-05-26] MEDS ORDERED: LACOSAMIDE INJ/PF 200 MG/20 ML SDV IV ONE (18:00)
[2020-05-26] MEDS: CYANOCOBALAMIN (VITAMIN B-12) INJ 1000 MCG/1 ML VIAL IM SCH (19:21)
--- NOTE | 2020-05-26 20:15 | NEURO WORKBENCH EEG REPORT ---
EEG Report Patient: Rachel Rodas ID: [id number] Referring Doctor: Gonzalez Almonte DOS: 05/26/2020 Medications: calcitrol, maxipime, clonidine, folvite, keppra, protonix, dilantin, transderm-scop History This is a 74 year old right handed female with a history of thyroid disease, right paraplegia, hypertension, stage 4 lung cancer with brain metastases, GERD, anemia. Had EEG on 05/24/2020 that showed status epilepticus. This EEG was requested for ongoing seizures. EEG Interpretation This EEG was recorded in the awake state only. This was a technically poor study that impaired interpretation. The awake EEG is characterized by a dis-organized background without a noted posterior dominant rhythm. There was no reactivity to passive eye opening/closing. The remainder of the background was characterized by a combination of primarily theta and delta with some alpha frequencies. There was nearly continuous generalized periodic discharges at approximately 1Hz frequency that appeared correlated with right arm and head clonic/myoclonic jerks. Photic stimulation resulted in no significant changes. The EKG showed periods of a regular rhythm but was infiltrated with artifact impairing interpretation. EEG Classification * Electro-clinical seizures * Generalized periodic discharges * Disorganized * Technically poor study EEG Impression This EEG is severely abnormal. There are continuous generalized periodic discharges that are clinically correlated with clonic/myoclonic movements. Compared to the prior EEG dated 05/24/2020 it is similar. These results were discussed with Dr. Loren Almonte at approximately 11:30am eastern time. INTERPRETING NEUROLOGIST: Halle Gomez MD, FRCPC Board Certified in Neurology, with special qualification in Child Neurology, and in Clinical Neurophysiology [facility]
[2020-05-27] MEDS: CEFEPIME 1 GM/D5W RTU 1 GM/50 ML RTUPB IV SCH ×2 (05:47→17:41)
[2020-05-27 08:27] LABS: HEMATOCRIT 27.4 % (36.0-47.0); HEMOGLOBIN 9.3 g/dL (12.0-15.5); MEAN CORPUSCULAR HEMOGLOBIN 30.1 pg (27.0-33.4); MEAN CORPUSCULAR HGB CONC 33.9 g/dL (32.0-36.0); MEAN CORPUSCULAR VOLUME 89 fl (80-97); PLATELET COUNT 366 10^3/uL (150-450); RED BLOOD COUNT 3.09 10^6/uL (3.72-5.28); RED CELL DISTRIBUTION WIDTH 16.5 % (11.5-14.0); WHITE BLOOD COUNT 20.5 10^3/uL (4.0-10.5)
[2020-05-27 08:38] LABS: ALBUMIN 2.2 g/dL (3.5-5.0); ALKALINE PHOSPHATASE 159 U/L (38-126); ANION GAP 7 (5-19); ASPARTATE AMINO TRANSFERASE 30 U/L (14-36); BILIRUBIN,DIRECT 0.3 mg/dL (0.0-0.4); BILIRUBIN,TOTAL 0.4 mg/dL (0.2-1.3); BLOOD UREA NITROGEN 6 mg/dL (7-20); CARBON DIOXIDE 20 mmol/L (22-30); CHLORIDE 96 mmol/L (98-107); GLUCOSE 121 mg/dL (75-110); TOTAL PROTEIN 4.3 g/dL (6.3-8.2)
[2020-05-27] MEDS ORDERED: DEXTROSE 5%-NORMAL SALINE 1,000 ML IV PRN (08:38)
[2020-05-27 08:49] LABS: CALCIUM 6.2 mg/dL (8.4-10.2)
[2020-05-27 08:50] LABS: POTASSIUM 2.7 mmol/L (3.6-5.0)
[2020-05-27 08:55] LABS: ABSOLUTE LYMPHOCYTES# (MANUAL) 3.9 10^3/uL (0.5-4.7); ABSOLUTE MONOCYTES # (MANUAL) 0.6 10^3/uL (0.1-1.4); BASOPHILS % (MANUAL) 0 % (0-2); EOSINOPHILS % (MANUAL) 0 % (0-6); LYMPHOCYTES % (MANUAL) 19 % (13-45); MONOCYTES % (MANUAL) 3 % (3-13); SEGMENTED NEUTROPHILS % (MAN) 78 % (42-78); TOTAL CELLS COUNTED 100
[2020-05-27 08:57] LABS: ANISOCYTOSIS 1+; OVALOCYTES SLIGHT; PLATELET COMMENT ADEQUATE
[2020-05-27] MEDS ORDERED: NORMAL SALINE 1000 ML 1,000 ML IV PRN (09:11)
[2020-05-27] MEDS ORDERED: DEXTROSE 50%-WATER 25 GM/50 ML DISP.SYRIN IV PRN (09:12)
[2020-05-27] MEDS: FOLIC ACID 1 MG TABLET PO SCH (09:34)
[2020-05-27] MEDS: CALCITRIOL 0.25 MCG CAPSULE PO SCH (09:34)
[2020-05-27] MEDS: DEXAMETHASONE SOD PHOSPHATE INJ 4 MG/1 ML VIAL IV SCH (09:41)
[2020-05-27] MEDS: PANTOPRAZOLE SODIUM 40 MG VIAL IV SCH ×2 (09:41→21:18)
[2020-05-27] MEDS: PHENYTOIN SODIUM INJ/PF 250 MG/5 ML SDV IV SCH (09:51)
[2020-05-27] MEDS ORDERED: SCOPOLAMINE HYDROBROMIDE 1.5 MG PATCH.TD72 TD SCH (10:00)
[2020-05-27] MEDS: LEVETIRACETAM 1000 MG/NACL-ISO 1,000 MG/100 ML RTUPB IV SCH (10:04)
--- NOTE | 2020-05-27 10:11 | PDOC PROGRESS REPORT ---
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 Almonte for evaluation of generalized weakness, right upper and lower extremity weakness, altered mental status, and electrolyte abnormalities. Source of history is Dr. Rodas her son who is present in the room, as per son patient was at her baseline ambulating with the help of her and p.o. tolerant, but recently patient has been noted to being more altered,having very low appetite with generalized weakness and right-sided upper and lower extremity weakness and involuntary contractions. Patient has not had any exposure to COVI D, is not complaining of any nausea, vomiting, diarrhea, constipation, fever, chills, chest pain, shortness of breath. Initially it was thought that her right upper and lower extremity weakness and a ltered mental status could be related to CVA or worsening metastatic brain lesion and was started on dexamethasone but on 05/22/2020 MRI/MRA head was negative for any acute stroke or any new lesions. Patient also had a PET scan on 03/28/2020 comparison on 01/04/2020 which showed favorable response to therapy, increased metabolic activity confined to the primary lung mass. Patient had outpatient CBC CMP which showed chronic hyponatremia, hypomagnesemia and hypocalcemia, electrolytes were repleted and patient was sent home. As patient did not improve much she was brought to ED today. In ED she was noted to have afebrile, normotensive, and SPO2 of 100% on room air. WBC of 39,000 [place] [address] on 10/29/2018. Sodium 126.0 with baseline of 124-132 and elevated LFTs, otherwise lactic acid, TSH, calcium and magnesium all within normal limits. Patient does not have any urinary retention but when in ED a Ruvalcaba patient was inserted she produced about 1700 cc of urine. Urinalysis was negative for any infection. On my encounter patient is comfortably resting in bed, in no apparent distress, very pleasant and cooperative with physical examination, she has visible right upper and lower extremity involuntary contraction,unfortunately does not communicate much due to language barrier, as per Dr. Rodas her son patient has improved since being admitted to ED. Dr. Rodas her son who was present in the room also mentions that her mother CODE STATUS is DNR/DNI. I was able to talk to Dr. Almonte her oncologist who think patient will only need rehydration and correction of her electrolyte abnormalities and will not need any antibiotics and there is no sign infection even though she has elevated leukocytosis which explained by her chronic CLL p.o. dexamethasone which was started recently. No further imaging recommended. 05/24/20-CT head is negative. Recent MRI/MRA negative for stroke. On examination patient is having the seizure-like activity affecting the right side of the body. Not responding to verbal commands. Right gaze is fixed. Patient received Keppra IV push, Dilantin IV push, lorazepam as needed to start her on Vimpat from this evening. EEG was requested. Patient will be n.p.o. Started on IV hydralazine 10 mg every 4 hours as needed for systolic blood pressure more than 170. Keep her n.p.o. started on IV Protonix 40 mg twice a day. aspiration, seizure precautions will be requested. 05/25/20-patient more alert more awake this morning compared to yesterday. Continues to have seizure activity. Plan is to start her on IV Dilantin 3 mg daily, continue Keppra 1 g IV twice a day. PRN lorazepam IV on board. To try nectar thickened liquids today. Serum calcium is 6.7, albumin is 2.1. To give 2 g of IV calcium today. 05/26/2020-patient is still having the continuous seizures. Unable to take anything by mouth. Blood sugars dropped to 54 with decrease IV fluids to D5 normal saline at this time. To give a vitamin B12 injections. Dilantin was increased to 400 mg IV daily. Repeat EEG was done. Latest blood pressure is 142/60. Stable. 05/27/20-patient is continued to have seizure activity affecting the right side of the body. Patient is n.p.o. Serum magnesium is low, serum potassium is low to supplement potassium and magnesium. Serum calcium is also low. To give IV calcium this morning. Sodium is dropping to 123 to change IV fluids from D5 normal saline to normal saline at 75 cc/h. Reason For Visit: WEAKNESS,DEHYDRATION,PERSISTENT HEMIPARESIS Physical Exam Vital Signs: Temp Pulse Resp BP Pulse Ox 99.0 F 102 H 20 179/101 H 95 05/27/20 08:00 05/27/20 08:00 05/27/20 08:00 05/27/20 08:00 05/27/20 08:00 Intake & Output 05/26/20 05/27/20 05/28/20 06:59 06:59 06:59 Intake Total 2400 1300 Output Total 1425 1650 Balance 975 -350 Weight 38.6 kg 38.6 kg General appearance: PRESENT: no acute distress, disheveled, thin Head exam: PRESENT: atraumatic Eye exam: PRESENT: conjunctiva pale Mouth exam: PRESENT: moist, tongue midline Teeth exam: PRESENT: poor dentation Neck exam: ABSENT: carotid bruit, JVD, lymphadenopathy, thyromegaly Respiratory exam: PRESENT: decreased breath sounds Cardiovascular exam: PRESENT: tachycardia GI/Abdominal exam: PRESENT: normal bowel sounds, soft. ABSENT: distended, guarding, mass, organolmegaly, rebound, tenderness Rectal exam: PRESENT: deferred Extremities exam: PRESENT: full ROM. ABSENT: calf tenderness, clubbing, pedal edema Neurological exam: PRESENT: altered Results Laboratory Results: 05/27/20 08:00 05/27/20 08:00 05/27/20 05/27/20 08:00 08:00 WBC 20.5 H RBC 3.09 L Hgb 9.3 L Hct 27.4 L MCV 89 MCH 30.1 MCHC 33.9 RDW 16.5 H Plt Count 366 Seg Neutrophils % Not Reportable Sodium 123.4 L Potassium 2.7 L* Chloride 96 L Carbon Dioxide 20 L Anion Gap 7 BUN 6 L Creatinine 0.40 L Est GFR ( Amer) > 60 Glucose 121 H Calcium 6.2 L* Magnesium 1.4 L Total Bilirubin 0.4 AST 30 Alkaline Phosphatase 159 H Total Protein 4.3 L Albumin 2.2 L Impressions: Abdomen/Pelvis CT 05/24/20 00:00 IMPRESSION: Increasing left pleural effusion. Complete collapse of left lower lobe as described. IMPRESSION: No acute findings in the abdomen or pelvis. The study is degraded by respiratory motion. Chest CT 05/24/20 00:00 IMPRESSION: Increasing left pleural effusion. Complete collapse of left lower lobe as described. IMPRESSION: No acute findings in the abdomen or pelvis. The study is degraded by respiratory motion. Head CT 05/24/20 00:00 IMPRESSION: 1. Small metastatic foci in the left cerebral hemisphere are again noted but less apparent on the current study. This in part is due to lack of IV contrast. 2. No intracranial hemorrhage. No midline shift. EVIDENCE OF ACUTE STROKE: NO. Assessment and Plan - Diagnosis (1) Seizure disorder Is this a current diagnosis for this admission?: Yes Plan: 05/24/2020-patient having the active continuous seizure activity received IV Dilantin, IV Keppra, also on IV lorazepam as needed. Plan is to start Vimpat from evening. EEG was requested. Aspiration, seizure precautions will be requested. 05/25/2020-to give Dilantin 300 mg IV daily, Keppra thousand milligrams twice daily. EEG yesterday indicates status epilepticus. Improvement in seizure activity is noticed compared to yesterday. Patient is more alert more awake t his morning. 05/26/20-plan is to increase the Dilantin to 400 mg IV daily. On Keppra 1000 mg twice daily. Repeat EKG was done today. Continuous seizure activity is noted. Patient is n.p.o. at this time. 05/27/2020-repeat EEG was done yesterday. Shows continued seizure activity. Patient is on Dilantin 500 mg IV daily, Keppra 1000 milligrams IV twice a day, she was started on Vimpat last night. (2) Chronic hyponatremia Is this a current diagnosis for this admission?: Yes Plan: Chronic hyponatremia. Likely due to underlying malignancy. Sodium seems to be at baseline. Continue normal saline. Monitor sodium level. Monitor for seizure. 05/24/2020-serum sodium is 128.9. Chronic hyponatremia most likely secondary to underlying malignancy. 05/25/2020-serum sodium is 128.2. Hyponatremia is resolved. 05/26/20-serum sodium is 127.8. Chronic hyponatremia most likely secondary to poor oral intake and underlying malignancy. 05/27/2020-serum sodium is around 123. To change the IV fluids normal saline at 75 cc/h. Chronic hyponatremia secondary to underlying malignancy. (3) Hypertension Is this a current diagnosis for this admission?: Yes Plan: Seems dehydrated. Mildly hypertensive. Continue fluid resuscitation guided by volume status. Resume home meds. PRN hydralazine. Adjust meds as needed. 05/24/2020-patient has history of chronic essential hypertension systolic blood pressure close to 200. Started on IV hydralazine 10 mg every 4 PRN for systolic blood pressure more than 170. It may be a contributing factor for seizure. 05/25/2020-blood pressure this morning is 133/57. Stable. 05/26/2020-latest blood pressure is 148/60. Stable. 05/27/2020-blood pressure today is 147/86. Stable. (4) Hypocalcemia Is this a current diagnosis for this admission?: Yes Plan: 05/24/2020-corrected serum calcium is within normal limits. 05/25/2020-serum calcium 6.7, serum albumin is 2.1, PTH is elevated. To give her 2 g of IV calcium this morning. 05/26/2020-serum calcium is 6.9. Albumin is 2.2. Corrected calcium is within normal limits. 05/27/2020-serum calcium is around 6.1. To give 2 g of IV calcium gluconate. (5) Hypomagnesemia Is this a current diagnosis for this admission?: Yes Plan: 05/24/2020-serum magnesium is 1.7 to give 1 g of IV magnesium at this time. 05/26/2020-serum magnesium is 1.9 today. To closely monitor the magnesium levels. 05/27/2020-serum magnesium is 1.4. To give 2 g of IV magnesium today. (6) History of chronic lymphocytic leukemia Is this a current diagnosis for this admission?: Yes Plan: History of CLL. Followed by Dr. Almonte as outpatient. Presenting with leukocytosis but no sign of acute infection. Vitals WNL. Patient also started on dexamethasone 4 mg p.o. daily as outpatient which may also explain her worsening leukocytosis. Blood culture. No antibiotic indicated at this point, will start on empiric IV antibiotics guided by clinical symptoms and culture results. 05/24/2020-patient has history of CLL. Dr. Almonte on board. WBC count is elevated most likely secondary to CLL. Afebrile. Not on antibiotics at this time. 05/25/20-WBC count improved to 20,000. Patient is on cefepime at this time. 05/26/20-WBC count is more than 22,000. Stable 05/27/2020-WBC count is 20,500. Patient is on IV cefepime. Plan is to continue antibiotic therapy at this time. (7) Stage IV squamous cell carcinoma of lung Qualifiers: Laterality: unspecified laterality Qualified Code(s): C34.90 - Malignant neoplasm of unspecified part of unspecified bronchus or lung Is this a current diagnosis for this admission?: Yes (8) Protein-energy malnutrition Qualifiers: Protein-calorie malnutrition severity: severe Qualified Code(s): E43 - Unspecified severe protein-calorie malnutrition Is this a current diagnosis for this admission?: Yes Plan: 05/24/2020-patient BMI is less than 17. On examination wasting of the temporalis muscles, quadriceps muscles, deltoid muscle seen. Patient is n.p.o. at this time. Dietary consult is requested. 05/27/2020-serum albumin is low. To give albumin supplementations at this time. - Time Anticipated Discharge Disposition: Home with Hospice Anticipated Discharge Timeframe: within 48 hours
[2020-05-27] MEDS: LACOSAMIDE INJ/PF 200 MG/20 ML SDV IV SCH ×2 (10:54→17:41)
[2020-05-27] MEDS: MAGNESIUM SULFATE/D5W 1 GM/100 ML RTUPB IV SCH ×2 (10:54→11:57)
[2020-05-27] MEDS: POTASSI CL 20 MEQ/50 ML RIDER 20 MEQ/50 ML RTUPB IV SCH ×2 (10:55→15:25)
[2020-05-27] MEDS: ALBUMIN HUMAN 12.5 GM/50 ML RTUINJ IV SCH ×4 (13:04→16:11)
[2020-05-27] MEDS ORDERED: POTASSI CL 20 MEQ/50 ML RIDER 20 MEQ/50 ML RTUPB IV SCH ×2 (15:30→20:45)
[2020-05-27] MEDS: CALCIUM GLUC IN NACL, ISO-OSM 1 GM/50 ML RTUPB IV SCH (15:41)
[2020-05-27] MEDS: CALCIUM GLUCONATE 1 GM/NS 50 ML RTU IV SCH ×2 (18:16→19:26)
[2020-05-27] MEDS ORDERED: FUROSEMIDE INJ/PF 20 MG/2 ML SDV IV ONE (23:45)
[2020-05-28] MEDS ORDERED: FUROSEMIDE INJ/PF 20 MG/2 ML SDV ONE (00:02)
[2020-05-28] MEDS: LEVETIRACETAM 1000 MG/NACL-ISO 1,000 MG/100 ML RTUPB IV SCH ×3 (00:15→22:02)
[2020-05-28] MEDS: CEFEPIME 1 GM/D5W RTU 1 GM/50 ML RTUPB IV SCH ×2 (05:02→18:46)
[2020-05-28 06:17] LABS: HEMATOCRIT 25.2 % (36.0-47.0); HEMOGLOBIN 8.5 g/dL (12.0-15.5); MEAN CORPUSCULAR HEMOGLOBIN 29.9 pg (27.0-33.4); MEAN CORPUSCULAR HGB CONC 33.6 g/dL (32.0-36.0); MEAN CORPUSCULAR VOLUME 89 fl (80-97); PLATELET COUNT 336 10^3/uL (150-450); RED BLOOD COUNT 2.83 10^6/uL (3.72-5.28); RED CELL DISTRIBUTION WIDTH 16.4 % (11.5-14.0); WHITE BLOOD COUNT 22.3 10^3/uL (4.0-10.5)
[2020-05-28 06:29] LABS: ALKALINE PHOSPHATASE 138 U/L (38-126); ANION GAP 9 (5-19); ASPARTATE AMINO TRANSFERASE 30 U/L (14-36); BILIRUBIN,DIRECT 0.5 mg/dL (0.0-0.4); BILIRUBIN,TOTAL 0.7 mg/dL (0.2-1.3); BLOOD UREA NITROGEN 6 mg/dL (7-20); CALCIUM 7.4 mg/dL (8.4-10.2); CARBON DIOXIDE 21 mmol/L (22-30); CHLORIDE 95 mmol/L (98-107); GLUCOSE 104 mg/dL (75-110); POTASSIUM 3.3 mmol/L (3.6-5.0)
[2020-05-28 07:12] LABS: ABSOLUTE LYMPHOCYTES# (MANUAL) 4.5 10^3/uL (0.5-4.7); ABSOLUTE MONOCYTES # (MANUAL) 0.7 10^3/uL (0.1-1.4); BASOPHILS % (MANUAL) 0 % (0-2); EOSINOPHILS % (MANUAL) 0 % (0-6); LYMPHOCYTES % (MANUAL) 20 % (13-45); MONOCYTES % (MANUAL) 3 % (3-13); PLATELET COMMENT ADEQUATE; SEGMENTED NEUTROPHILS % (MAN) 77 % (42-78); TOTAL CELLS COUNTED 100
[2020-05-28 07:15] LABS: ANISOCYTOSIS 1+
[2020-05-28 07:16] LABS: BURR CELLS SLIGHT; POLYCHROMASIA SLIGHT; TOXIC VACUOLATION PRESENT
[2020-05-28] MEDS: POTASSI CL 20 MEQ/50 ML RIDER 20 MEQ/50 ML RTUPB IV SCH ×2 (08:42→12:01)
[2020-05-28] MEDS ORDERED: NORMAL SALINE 1000 ML 1,000 ML IV PRN (10:00)
--- NOTE | 2020-05-28 10:04 | PDOC PROGRESS REPORT ---
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 Almonte for evaluation of generalized weakness, right upper and lower extremity weakness, altered mental status, and electrolyte abnormalities. Source of history is Dr. Rodas her son who is present in the room, as per son patient was at her baseline ambulating with the help of her and p.o. tolerant, but recently patient has been noted to being more altered,having very low appetite with generalized weakness and right-sided upper and lower extremity weakness and involuntary contractions. Patient has not had any exposure to COVI D, is not complaining of any nausea, vomiting, diarrhea, constipation, fever, chills, chest pain, shortness of breath. Initially it was thought that her right upper and lower extremity weakness and a ltered mental status could be related to CVA or worsening metastatic brain lesion and was started on dexamethasone but on 05/22/2020 MRI/MRA head was negative for any acute stroke or any new lesions. Patient also had a PET scan on 03/28/2020 comparison on 01/04/2020 which showed favorable response to therapy, increased metabolic activity confined to the primary lung mass. Patient had outpatient CBC CMP which showed chronic hyponatremia, hypomagnesemia and hypocalcemia, electrolytes were repleted and patient was sent home. As patient did not improve much she was brought to ED today. In ED she was noted to have afebrile, normotensive, and SPO2 of 100% on room air. [place] 39,000 [place] [id number] on 10/29/2018. Sodium 126.0 with baseline of 124-132 and elevated LFTs, otherwise lactic acid, TSH, calcium and magnesium all within normal limits. Patient does not have any urinary retention but when in ED a Ruvalcaba patient was inserted she produced about 1700 cc of urine. Urinalysis was negative for any infection. On my encounter patient is comfortably resting in bed, in no apparent distress, very pleasant and cooperative with physical examination, she has visible right upper and lower extremity involuntary contraction,unfortunately does not communicate much due to language barrier, as per Dr. Rodas her son patient has improved since being admitted to ED. Dr. Rodas her son who was present in the room also mentions that her mother CODE STATUS is DNR/DNI. I was able to talk to Dr. Almonte her oncologist who think patient will only need rehydration and correction of her electrolyte abnormalities and will not need any antibiotics and there is no sign infection even though she has elevated leukocytosis which explained by her chronic CLL p.o. dexamethasone which was started recently. No further imaging recommended. 05/24/20-CT head is negative. Recent MRI/MRA negative for stroke. On examination patient is having the seizure-like activity affecting the right side of the body. Not responding to verbal commands. Right gaze is fixed. Patient received Keppra IV push, Dilantin IV push, lorazepam as needed to start her on Vimpat from this evening. EEG was requested. Patient will be n.p.o. Started on IV hydralazine 10 mg every 4 hours as needed for systolic blood pressure more than 170. Keep her n.p.o. started on IV Protonix 40 mg twice a day. aspiration, seizure precautions will be requested. 05/25/20-patient more alert more awake this morning compared to yesterday. Continues to have seizure activity. Plan is to start her on IV Dilantin 3 mg daily, continue Keppra 1 g IV twice a day. PRN lorazepam IV on board. To try nectar thickened liquids today. Serum calcium is 6.7, albumin is 2.1. To give 2 g of IV calcium today. 05/26/2020-patient is still having the continuous seizures. Unable to take anything by mouth. Blood sugars dropped to 54 with decrease IV fluids to D5 normal saline at this time. To give a vitamin B12 injections. Dilantin was increased to 400 mg IV daily. Repeat EEG was done. Latest blood pressure is 142/60. Stable. 05/27/20-patient is continued to have seizure activity affecting the right side of the body. Patient is n.p.o. Serum magnesium is low, serum potassium is low to supplement potassium and magnesium. Serum calcium is also low. To give IV calcium this morning. Sodium is dropping to 123 to change IV fluids from D5 normal saline to normal saline at 75 cc/h. 05/28/2020-patient is receiving Dilantin 40 mg IV daily, Keppra thousand milligrams IV twice a day, Vimpat 50 mg IV every 12 hours. No seizure activity noticed. Patient has tachypnea and in the mild distress not communicative. Reason For Visit: WEAKNESS,DEHYDRATION,PERSISTENT HEMIPARESIS Physical Exam Vital Signs: Temp Pulse Resp BP Pulse Ox 97.3 F 101 H 17 163/76 H 84 L 05/27/20 19:49 05/28/20 02:00 05/27/20 19:49 05/27/20 19:49 05/27/20 19:49 Intake & Output 05/27/20 05/28/20 05/29/20 06:59 06:59 06:59 Intake Total 1300 1591 Output Total 1650 1500 Balance -350 91 Weight 38.6 kg 38.6 kg General appearance: PRESENT: no acute distress, disheveled, thin Head exam: PRESENT: atraumatic Eye exam: PRESENT: conjunctiva pale, PERRLA Mouth exam: PRESENT: moist, tongue midline Teeth exam: PRESENT: poor dentation Respiratory exam: PRESENT: accessory muscle use, tachypnea Cardiovascular exam: PRESENT: tachycardia GI/Abdominal exam: PRESENT: normal bowel sounds, soft. ABSENT: distended, guarding, mass, organolmegaly, rebound, tenderness Rectal exam: PRESENT: deferred Gentrourinary exam: PRESENT: indwelling catheter Neurological exam: PRESENT: altered Results Laboratory Results: 05/28/20 05:00 05/28/20 05:00 05/28/20 05/28/20 05:00 05:00 WBC 22.3 H RBC 2.83 L Hgb 8.5 L Hct 25.2 L MCV 89 MCH 29.9 MCHC 33.6 RDW 16.4 H Plt Count 336 Seg Neutrophils % Not Reportable Sodium 124.8 L Potassium 3.3 L Chloride 95 L Carbon Dioxide 21 L Anion Gap 9 BUN 6 L Creatinine 0.47 L Est GFR ( Amer) > 60 Glucose 104 Calcium 7.4 L Magnesium 1.9 Total Bilirubin 0.7 AST 30 Alkaline Phosphatase 138 H Total Protein 5.0 L Albumin 3.0 L Impressions: Abdomen/Pelvis CT 05/24/20 00:00 IMPRESSION: Increasing left pleural effusion. Complete collapse of left lower lobe as described. IMPRESSION: No acute findings in the abdomen or pelvis. The study is degraded by respiratory motion. Chest CT 05/24/20 00:00 IMPRESSION: Increasing left pleural effusion. Complete collapse of left lower lobe as described. IMPRESSION: No acute findings in the abdomen or pelvis. The study is degraded by respiratory motion. Head CT 05/24/20 00:00 IMPRESSION: 1. Small metastatic foci in the left cerebral hemisphere are again noted but less apparent on the current study. This in part is due to lack of IV contrast. 2. No intracranial hemorrhage. No midline shift. EVIDENCE OF ACUTE STROKE: NO. Assessment and Plan - Diagnosis (1) Seizure disorder Is this a current diagnosis for this admission?: Yes Plan: 05/24/2020-patient having the active continuous seizure activity received IV Dilantin, IV Keppra, also on IV lorazepam as needed. Plan is to start Vimpat from evening. EEG was requested. Aspiration, seizure precautions will be requested. 05/25/2020-to give Dilantin 300 mg IV daily, Keppra thousand milligrams twice daily. EEG yesterday indicates status epilepticus. Improvement in seizure activity is noticed compared to yesterday. Patient is more alert more awake this morning. 05/26/20-plan is to increase the Dilantin to 400 mg IV daily. On Keppra 1000 mg twice daily. Repeat EKG was done today. Continuous seizure activity is noted. Patient is n.p.o. at this time. 05/27/2020-repeat EEG was done yesterday. Shows continued seizure activity. Kinga leone is on Dilantin 500 mg IV daily, Keppra 1000 milligrams IV twice a day, she was started on Vimpat last night. 05/28/2020-Dilantin level is pending. Presently on IV Dilantin, IV Keppra, IV Vimpat. Plan is to continue the present management. (2) Chronic hyponatremia Is this a current diagnosis for this admission?: Yes Plan: Chronic hyponatremia. Likely due to underlying malignancy. Sodium seems to be at baseline. Continue normal saline. Monitor sodium level. Monitor for seizure. 05/24/2020-serum sodium is 128.9. Chronic hyponatremia most likely secondary to underlying malignancy. 05/25/2020-serum sodium is 128.2. Hyponatremia is resolved. 05/26/20-serum sodium is 127.8. Chronic hyponatremia most likely secondary to poor oral intake and underlying malignancy. 05/27/2020-serum sodium is around 123. To change the IV fluids normal saline at 75 cc/h. Chronic hyponatremia secondary to underlying malignancy. 05/28/2020-serum sodium is 124.8. Stable. Normal saline at 75 cc/h plan is to decrease it to 50 cc/h because of third spacing. (3) Hypertension Is this a current diagnosis for this admission?: Yes Plan: Seems dehydrated. Mildly hypertensive. Continue fluid resuscitation guided by volume status. Resume home meds. PRN hydralazine. Adjust meds as needed. 05/24/2020-patient has history of chronic essential hypertension systolic blood pressure close to 200. Started on IV hydralazine 10 mg every 4 PRN for systolic blood pressure more than 170. It may be a contributing factor for seizure. 05/25/2020-blood pressure this morning is 133/57. Stable. 05/26/2020-latest blood pressure is 148/60. Stable. 05/27/2020-blood pressure today is 147/86. Stable. 05/28/2020-blood pressure is 163/76. Plan is to continue the present management at this time. (4) Hypocalcemia Is this a current diagnosis for this admission?: Yes Plan: 05/24/2020-corrected serum calcium is within normal limits. 05/25/2020-serum calcium 6.7, serum albumin is 2.1, PTH is elevated. To give her 2 g of IV calcium this morning. 05/26/2020-serum calcium is 6.9. Albumin is 2.2. Corrected calcium is within normal limits. 05/27/2020-serum calcium is around 6.1. To give 2 g of IV calcium gluconate. 05/28/2020-serum calcium is 7.4 with albumin of 3.0. Plan is to repeat the labs tomorrow. (5) Hypomagnesemia Is this a current diagnosis for this admission?: Yes Plan: 05/24/2020-serum magnesium is 1.7 to give 1 g of IV magnesium at this time. 05/26/2020-serum magnesium is 1.9 today. To closely monitor the magnesium levels. 05/27/2020-serum magnesium is 1.4. To give 2 g of IV magnesium today. (6) History of chronic lymphocytic leukemia Is this a current diagnosis for this admission?: Yes Plan: History of CLL. Followed by Dr. Almonte as outpatient. Presenting with leukocytosis but no sign of acute infection. Vitals WNL. Patient also started on dexamethasone 4 mg p.o. daily as outpatient which may also explain her worsening leukocytosis. Blood culture. No antibiotic indicated at this point, will start on empiric IV antibiotics guided by clinical symptoms and culture results. 05/24/2020-patient has history of CLL. Dr. Almonte on board. WBC count is elevated most likely secondary to CLL. Afebrile. Not on antibiotics at this time. 05/25/20-WBC count improved to 20,000. Patient is on cefepime at this time. 05/26/20-WBC count is more than 22,000. Stable 05/27/2020-WBC count is 20,500. Patient is on IV cefepime. Plan is to continue antibiotic therapy at this time. (7) Stage IV squamous cell carcinoma of lung Qualifiers: Laterality: unspecified laterality Qualified Code(s): C34.90 - Malignant neoplasm of unspecified part of unspecified bronchus or lung Is this a current diagnosis for this admission?: Yes Plan: Recurrent. Status post chemoradiation. Currently on chemotherapy for cycle. Last chemotherapy 2 weeks ago. Followed by Dr. Almonte as outpatient. Oncology consulted. Follow-up recommendations. (8) Protein-energy malnutrition Qualifiers: Protein-calorie malnutrition severity: severe Qualified Code(s): E43 - Unspecified severe protein-calorie malnutrition Is this a current diagnosis for this admission?: Yes Plan: 05/24/2020-patient BMI is less than 17. On examination wasting of the temporalis muscles, quadriceps muscles, deltoid muscle seen. Patient is n.p.o. at this time. Dietary consult is requested. 05/27/2020-serum albumin is low. To give albumin supplementations at this time. - Time Anticipated Discharge Disposition: Home with Hospice Anticipated Discharge Timeframe: within 24 hours
[2020-05-28] MEDS: LACOSAMIDE INJ/PF 200 MG/20 ML SDV IV SCH ×2 (10:09→18:48)
[2020-05-28] MEDS: PANTOPRAZOLE SODIUM 40 MG VIAL IV SCH ×2 (10:10→22:02)
[2020-05-28] MEDS: DEXAMETHASONE SOD PHOSPHATE INJ 4 MG/1 ML VIAL IV SCH (10:10)
[2020-05-28] MEDS: FOLIC ACID 1 MG TABLET PO SCH (10:11)
[2020-05-28] MEDS: CYANOCOBALAMIN (VITAMIN B-12) INJ 1000 MCG/1 ML VIAL IM SCH ×2 (10:11)
[2020-05-28] MEDS: CALCITRIOL 0.25 MCG CAPSULE PO SCH (10:12)
[2020-05-28] MEDS ORDERED: FUROSEMIDE INJ/PF 40 MG/4 ML SDV IV ONE (10:15)
[2020-05-28] MEDS: PHENYTOIN SODIUM INJ/PF 250 MG/5 ML SDV IV SCH (15:52)
[2020-05-29] MEDS: CEFEPIME 1 GM/D5W RTU 1 GM/50 ML RTUPB IV SCH (06:07)
--- NOTE | 2020-05-29 07:46 | PDOC PROGRESS REPORT ---
Subjective Progress Note for:: 05/29/20 Subjective:: Pt resting comfortably, hospice involved now and transport planned at 8:30am. Added fentanyl patch this am and giving IV VIMPAT this am as last dose Reason For Visit: WEAKNESS,DEHYDRATION,PERSISTENT HEMIPARESIS Physical Exam Vital Signs: Temp Pulse Resp BP Pulse Ox 97.9 F 105 H 24 H 157/128 H 88 L 05/28/20 20:00 05/29/20 02:00 05/28/20 20:00 05/28/20 20:00 05/28/20 20:00 Intake & Output 05/28/20 05/29/20 05/30/20 06:59 06:59 06:59 Intake Total 1691 350 Output Total 1500 1950 Balance 191 -1600 Weight 38.6 kg 38.6 kg General appearance: PRESENT: no acute distress, well-developed, well-nourished Head exam: PRESENT: atraumatic, normocephalic Eye exam: PRESENT: conjunctiva pink, EOMI, PERRLA. ABSENT: scleral icterus Ear exam: PRESENT: normal external ear exam Mouth exam: PRESENT: moist, tongue midline Neck exam: ABSENT: carotid bruit, JVD, lymphadenopathy, thyromegaly Respiratory exam: PRESENT: clear to auscultation neelima. ABSENT: rales, rhonchi, wheezes Cardiovascular exam: PRESENT: RRR. ABSENT: diastolic murmur, rubs, systolic murmur Pulses: PRESENT: normal dorsalis pedis pul Vascular exam: PRESENT: normal capillary refill GI/Abdominal exam: PRESENT: normal bowel sounds, soft. ABSENT: distended, guarding, mass, organolmegaly, rebound, tenderness Rectal exam: PRESENT: deferred Extremities exam: PRESENT: full ROM. ABSENT: calf tenderness, clubbing, pedal edema Neurological exam: PRESENT: alert, awake, oriented to person, oriented to place, oriented to time, oriented to situation, CN II-XII grossly intact. ABSENT: motor sensory deficit Psychiatric exam: PRESENT: appropriate affect, normal mood. ABSENT: homicidal ideation, suicidal ideation Skin exam: PRESENT: dry, intact, warm. ABSENT: cyanosis, rash Results Laboratory Results: 05/28/20 05:00 05/28/20 05:00 05/23/20 22:06 Blood Blood Culture - Final NO GROWTH IN 5 DAYS 05/23/20 19:52 Blood Blood Culture - Final NO GROWTH IN 5 DAYS Impressions: Abdomen/Pelvis CT 05/24/20 00:00 IMPRESSION: Increasing left pleural effusion. Complete collapse of left lower lobe as described. IMPRESSION: No acute findings in the abdomen or pelvis. The study is degraded by respiratory motion. Chest CT 05/24/20 00:00 IMPRESSION: Increasing left pleural effusion. Complete collapse of left lower lobe as described. IMPRESSION: No acute findings in the abdomen or pelvis. The study is degraded by respiratory motion. Head CT 05/24/20 00:00 IMPRESSION: 1. Small metastatic foci in the left cerebral hemisphere are again noted but less apparent on the current study. This in part is due to lack of IV contrast. 2. No intracranial hemorrhage. No midline shift. EVIDENCE OF ACUTE STROKE: NO. 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 seizure meds - Time Time Spent with patient: 15-24 minutes
[2020-05-29] MEDS ORDERED: LACOSAMIDE INJ/PF 200 MG/20 ML SDV IV ONE (08:00)
[2020-05-29] MEDS ORDERED: FENTANYL 12 MCG/HR PATCH.TD72 TD ONE (08:00)
[2020-05-29] MEDS ORDERED: DEXTROSE 50%-WATER 25 GM/50 ML DISP.SYRIN IV PRN (08:30)
[2020-05-29 08:42] VITALS: BP 177/81
[2020-05-29] MEDS ORDERED: CHOLECALCIFEROL 1250 MCG PO SCH (10:00)
--- NOTE | 2020-05-29 19:22 | PDOC DISCHARGE SUMMARY ---
Impression - Admit/DC Date/PCP Admission Date/Primary Care Provider: 05/24/20 14:40 KHRIS TIDWELL MD Discharge Date: 05/29/20 - Additional Information Resuscitation Status: Do Not Resuscitate Discharge Diet: As Tolerated, Other (Comments) Discharge Activity: Other Referrals: [facility] [Outside] KHRIS TIDWELL MD [Primary Care Provider] - Follow up as needed History of Present Illiness History of Present Illness: Per Admitting Physician: " 74 year old female past medical history of hypertension, hypothyroidism, chronic hyponatremia, anxiety, CLL and stage IV lung cancer with known metastasis to brain status post chemoradiation, recently restarted on chemotherapy, currently on fifth cycle, last chemotherapy 2 weeks ago, who was sent to ED by her oncologist Dr. Almonte for evaluation of generalized weakness, right upper and lower extremity weakness, altered mental status, and electrolyte abnormalities. Source of history is Dr. Tidwell her son who is present in the room, as per son patient was at her baseline ambulating with the help of her and p.o. tolerant, but recently patient has been noted to being more altered,having very low appetite with generalized weakness and right-sided upper and lower extremity weakness and involuntary contractions. Patient has not had any exposure to COVID, is not complaining of any nausea, vomiting, diarrhea, constipation, fever, chills, chest pain, shortness of breath. Initially it was thought that her right upper and lower extremity weakness and altered mental status could be related to CVA or worsening metastatic brain lesion and was started on dexamethasone but on 05/22/2020 MRI/MRA head was negative for any acute stroke or any new lesions. Patient also had a PET scan on 03/28/2020 comparison on 01/04/2020 which showed favorable response to therapy, increased metabolic activity confined to the primary lung mass. Patient had outpatient CBC CMP which showed chronic hyponatremia, hypomagnesemia and hypocalcemia, electrolytes were repleted and patient was sent home. As patient did not improve much she was brought to ED today. In ED she was noted to have afebrile, normotensive, and SPO2 of 100% on room air. WBC of 39,000 up [place] [address] on 10/29/2018. Sodium 126.0 with baseline of 124-132 and elevated LFTs, otherwise lactic acid, TSH, calcium and magnesium all within normal limits. Patient does not have any urinary retention but when in ED a [place] patient was inserted she produced about 1700 cc of urine. Urinalysis was negative for any infection. On my encounter patient is comfortably resting in bed, in no apparent distress, very pleasant and cooperative with physical examination, she has visible right upper and lower extremity involuntary contraction,unfortunately does not communicate much due to language barrier, as per Dr. Tidwell her son patient has improved since being admitted to ED. Dr. Tidwell her son who was present in the room also mentions that her mother CODE STATUS is DNR/DNI. I was able to talk to Dr. Almonte her oncologist who think patient will only need rehydration and correction of her electrolyte abnormalities and will not need any antibiotics and there is no sign infection even though she has elevated leukocytosis which explained by her chronic CLL p.o. dexamethasone which was started recently. No further imaging recommended." Hospital Course Hospital Course: Per Admitting Physician: " 74 year old female past medical history of hypertension, hypothyroidism, chronic hyponatremia, anxiety, CLL and stage IV lung cancer with known metastasis to brain status post chemoradiation, recently restarted on chemotherapy, currently on fifth cycle, last chemotherapy 2 weeks ago, who was sent to ED by her oncologist Dr. Almonte for evaluation of generalized weakness, right upper and lower extremity weakness, altered mental status, and electrolyte abnormalities. Source of history is Dr. Tidwell her son who is present in the room, as per son patient was at her baseline ambulating with the help of her and p.o. tolerant, but recently patient has been noted to being more altered,having very low appetite with generalized weakness and right-sided upper and lower extremity weakness and involuntary contractions. Patient has not had any exposure to COVID, is not complaining of any nausea, vomiting, diarrhea, constipation, fever, chills, chest pain, shortness of breath. Initially it was thought that her right upper and lower extremity weakness and altered mental status could be related to CVA or worsening metastatic brain lesion and was started on dexamethasone but on 05/22/2020 MRI/MRA head was negative for any acute stroke or any new lesions. Patient also had a PET scan on 03/28/2020 comparison on 01/04/2020 which showed favorable response to therapy, increased metabolic activity confined to the primary lung mass. Patient had outpatient CBC CMP which showed chronic hyponatremia, hypomagnesemia and hypocalcemia, electrolytes were repleted and patient was sent home. As patient did not improve much she was brought to ED today. In ED she was noted to have afebrile, normotensive, and SPO2 of 100% on room air. [place]BC [place] 39,000 [place] [id number] on 10/29/2018. Sodium 126.0 with baseline of 124-132 and elevated LFTs, otherwise lactic acid, TSH, calcium and magnesium all within normal limits. Patient does not have any urinary retention but when in ED a [place] patient was inserted she produced about 1700 cc of urine. Urinalysis was negative for any infection. On my encounter patient is comfortably resting in bed, in no apparent distress, very pleasant and cooperative with physical examination, she has visible right u pper and lower extremity involuntary contraction,unfortunately does not communicate much due to language barrier, as per Dr. Tidwell her son patient has improved since being admitted to ED. Dr. Tidwell her son who was present in the room also mentions that her mother CODE STATUS is DNR/DNI. I was able to talk to Dr. Almonte her oncologist who think patient will only need rehydration and correction of her electrolyte abnormalities and will not need any antibiotics and there is no sign infection even though she has elevated leukocytosis which explained by her chronic CLL p.o. dexamethasone which was started recently. No further imaging recommended. 05/24/20-CT head is negative. Recent MRI/MRA negative for stroke. On examination patient is having the seizure-like activity affecting the right side of the body. Not responding to verbal commands. Right gaze is fixed. Patient received Keppra IV push, Dilantin IV push, lorazepam as needed to start her on Vimpat from this evening. EEG was requested. Patient will be n.p.o. Started on IV hydralazine 10 mg every 4 hours as needed for systolic blood pressure more than 170. Keep her n.p.o. started on IV Protonix 40 mg twice a day. aspir ation, seizure precautions will be requested. 05/25/20-patient more alert more awake this morning compared to yesterday. Continues to have seizure activity. Plan is to start her on IV Dilantin 3 mg daily, continue Keppra 1 g IV twice a day. PRN lorazepam IV on board. To try nectar thickened liquids today. Serum calcium is 6.7, albumin is 2.1. To give 2 g of IV calcium today. 05/26/2020-patient is still having the continuous seizures. Unable to take anything by mouth. Blood sugars dropped to 54 with decrease IV fluids to D5 normal saline at this time. To give a vitamin B12 injections. Dilantin was increased to 400 mg IV daily. Repeat EEG was done. Latest blood pressure is 142/60. Stable. 05/27/20-patient is continued to have seizure activity affecting the right side of the body. Patient is n.p.o. Serum magnesium is low, serum potassium is low to supplement potassium and magnesium. Serum calcium is also low. To give IV calcium this morning. Sodium is dropping to 123 to change IV fluids from D5 normal saline to normal saline at 75 cc/h. 05/28/2020-patient is receiving Dilantin 40 mg IV daily, Keppra thousand milligrams IV twice a day, Vimpat 50 mg IV every 12 hours. No seizure activity noticed. Patient has tachypnea and in the mild distress not communicative." Discharged home with hospice Per Admitting Physician: "(1) Seizure disorder Is this a current diagnosis for this admission?: Yes Plan: 05/24/2020-patient having the active continuous seizure activity received IV Dilantin, IV Keppra, also on IV lorazepam as needed. Plan is to start Vimpat from evening. EEG was requested. Aspiration, seizure precautions will be requested. 05/25/2020-to give Dilantin 300 mg IV daily, Keppra thousand milligrams twice daily. EEG yesterday indicates status epilepticus. Improvement in seizure activity is noticed compared to yesterday. Patient is more alert more awake this morning. 05/26/20-plan is to increase the Dilantin to 400 mg IV daily. On Keppra 1000 mg twice daily. Repeat EKG was done today. Continuous seizure activity is noted. Patient is n.p.o. at this time. 05/27/2020-repeat EEG was done yesterday. Shows continued seizure activity. Patient is on Dilantin 500 mg IV daily, Keppra 1000 milligrams IV twice a day, she was started on Vimpat last night. 05/28/2020-Dilantin level is pending. Presently on IV Dilantin, IV Keppra, IV Vimpat. Plan is to continue the present management. (2) Chronic hyponatremia Is this a current diagnosis for this admission?: Yes Plan: Chronic hyponatremia. Likely due to underlying malignancy. Sodium seems to be at baseline. Continue normal saline. Monitor sodium level. Monitor for seizure. 05/24/2020-serum sodium is 128.9. Chronic hyponatremia most likely secondary to underlying malignancy. 05/25/2020-serum sodium is 128.2. Hyponatremia is resolved. 05/26/20-serum sodium is 127.8. Chronic hyponatremia most likely secondary to poor oral intake and underlying malignancy. 05/27/2020-serum sodium is around 123. To change the IV fluids normal saline at 75 cc/h. Chronic hyponatremia secondary to underlying malignancy. 05/28/2020-serum sodium is 124.8. Stable. Normal saline at 75 cc/h plan is to decrease it to 50 cc/h because of third spacing. (3) Hypertension Is this a current diagnosis for this admission?: Yes Plan: Seems dehydrated. Mildly hypertensive. Continue fluid resuscitation guided by volume status. Resume home meds. PRN hydralazine. Adjust meds as needed. 05/24/2020-patient has history of chronic essential hypertension systolic blood pressure close to 200. Started on IV hydralazine 10 mg every 4 PRN for systolic blood pressure more than 170. It may be a contributing factor for seizure. 05/25/2020-blood pressure this morning is 133/57. Stable. 05/26/2020-latest blood pressure is 148/60. Stable. 05/27/2020-blood pressure today is 147/86. Stable. 05/28/2020-blood pressure is 163/76. Plan is to continue the present management at this time. (4) Hypocalcemia Is this a current diagnosis for this admission?: Yes Plan: 05/24/2020-corrected serum calcium is within normal limits. 05/25/2020-serum calcium 6.7, serum albumin is 2.1, PTH is elevated. To give her 2 g of IV calcium this morning. 05/26/2020-serum calcium is 6.9. Albumin is 2.2. Corrected calcium is within normal limits. 05/27/2020-serum calcium is around 6.1. To give 2 g of IV calcium gluconate. 05/28/2020-serum calcium is 7.4 with albumin of 3.0. Plan is to repeat the labs tomorrow. (5) Hypomagnesemia Is this a current diagnosis for this admission?: Yes Plan: 05/24/2020-serum magnesium is 1.7 to give 1 g of IV magnesium at this time. 05/26/2020-serum magnesium is 1.9 today. To closely monitor the magnesium levels. 05/27/2020-serum magnesium is 1.4. To give 2 g of IV magnesium today. (6) History of chronic lymphocytic leukemia Is this a current diagnosis for this admission?: Yes Plan: History of CLL. Followed by Dr. Almonte as outpatient. Presenting with leukocytosis but no sign of acute infection. Vitals WNL. Patient also started on dexamethasone 4 mg p.o. daily as outpatient which may also explain her worsening leukocytosis. Blood culture. No antibiotic indicated at this point, will start on empiric IV antibiotics guided by clinical symptoms and culture results. 05/24/2020-patient has history of CLL. Dr. Almonte on board. WBC count is elevated most likely secondary to CLL. Afebrile. Not on antibiotics at this time. 05/25/20-WBC count improved to 20,000. Patient is on cefepime at this time. 05/26/20-WBC count is more than 22,000. Stable 05/27/2020-WBC count is 20,500. Patient is on IV cefepime. Plan is to continue antibiotic therapy at this time. (7) Stage IV squamous cell carcinoma of lung Qualifiers: Laterality: unspecified laterality Qualified Code(s): C34.90 - Malignant neoplasm of unspecified part of unspecified bronchus or lung Is this a current diagnosis for this admission?: Yes Plan: Recurrent. Status post chemoradiation. Currently on chemotherapy for cycle. Last chemotherapy 2 weeks ago. Followed by Dr. Almonte as outpatient. Oncology consulted. Follow-up recommendations. (8) Protein-energy malnutrition Qualifiers: Protein-calorie malnutrition severity: severe Qualified Code(s): E43 - Unspecified severe protein-calorie malnutrition Is this a current diagnosis for this admission?: Yes Plan: 05/24/2020-patient BMI is less than 17. On examination wasting of the temporalis muscles, quadriceps muscles, deltoid muscle seen. Patient is n.p.o. at this time. Dietary consult is requested. 05/27/2020-serum albumin is low. To give albumin supplementations at this time. " Physical Exam Vital Signs: Temp Pulse Resp BP Pulse Ox 97.9 F 105 H 24 H 177/81 H 88 L 05/29/20 08:40 05/29/20 08:40 05/29/20 08:40 05/29/20 08:40 05/29/20 08:40 Intake & Output 05/28/20 05/29/20 05/30/20 06:59 06:59 06:59 Intake Total 1691 350 Output Total 1500 1950 Balance 191 -1600 Weight 38.6 kg 38.6 kg Exam: Patient left before she could be examined Results Laboratory Results: WBC 22.3 10^3/uL (4.0-10.5) H 05/28/20 05:00 RBC 2.83 10^6/uL (3.72-5.28) L 05/28/20 05:00 Hgb 8.5 g/dL (12.0-15.5) L 05/28/20 05:00 Hct 25.2 % (36.0-47.0) L 05/28/20 05:00 MCV 89 fl (80-97) 05/28/20 05:00 MCH 29.9 pg (27.0-33.4) 05/28/20 05:00 MCHC 33.6 g/dL (32.0-36.0) 05/28/20 05:00 RDW 16.4 % (11.5-14.0) H 05/28/20 05:00 Plt Count 336 10^3/uL (150-450) 05/28/20 05:00 Lymph % (Auto) Not Reportable 05/28/20 05:00 [place] % (Auto) Not Reportable 05/28/20 05:00 Eos % (Auto) Not Reportable 05/28/20 05:00 Baso % (Auto) Not Reportable 05/28/20 05:00 Absolute Neuts (auto) Not Reportable 05/28/20 05:00 Absolute Lymphs (auto) Not Reportable 05/28/20 05:00 Absolute Monos (auto) Not Reportable 05/28/20 05:00 Absolute Eos (auto) Not Reportable 05/28/20 05:00 Absolute Basos (auto) Not Reportable 05/28/20 05:00 Total Counted 100 05/28/20 05:00 Seg Neutrophils % Not Reportable 05/28/20 05:00 Seg Neuts % (Manual) 77 % (42-78) 05/28/20 05:00 Band Neutrophils % 1 % (3-5) L 05/23/20 19:52 Lymphocytes % (Manual) 20 % (13-45) 05/28/20 05:00 Monocytes % (Manual) 3 % (3-13) 05/28/20 05:00 Eosinophils % (Manual) 0 % (0-6) 05/28/20 05:00 Basophils % (Manual) 0 % (0-2) 05/28/20 05:00 Abs Neuts (Manual) 17.2 10^3/uL (1.7-8.2) H 05/28/20 05:00 Abs Lymphs (Manual) 4.5 10^3/uL (0.5-4.7) 05/28/20 05:00 Abs Monocytes (Manual) 0.7 10^3/uL (0.1-1.4) 05/28/20 05:00 Absolute Eos (Manual) 0.0 10^3/uL (0.0-0.6) 05/28/20 05:00 Abs Basophils (Manual) 0.0 10^3/uL (0.0-0.2) 05/28/20 05:00 Nucleated RBCs 2 /100 WBC (0) 05/25/20 06:40 Toxic Vacuolation PRESENT 05/28/20 05:00 Large Platelets PRESENT 05/25/20 06:40 Platelet Comment ADEQUATE 05/28/20 05:00 Polychromasia SLIGHT 05/28/20 05:00 Hypochromasia SLIGHT 05/26/20 06:05 Poikilocytosis SLIGHT 05/24/20 06:50 Basophilic Stippling PRESENT 05/25/20 06:40 Anisocytosis 1+ 05/28/20 05:00 Ovalocytes SLIGHT 05/27/20 08:00 [place] Cells SLIGHT 05/28/20 05:00 PT 13.0 SEC (11.4-15.4) 05/23/20 19:52 INR 0.96 05/23/20 19:52 Sodium 124.8 mmol/L (137-145) L 05/28/20 05:00 Potassium 3.3 mmol/L (3.6-5.0) L 05/28/20 05:00 Chloride 95 mmol/L (98-107) L 05/28/20 05:00 Carbon Dioxide 21 mmol/L (22-30) L 05/28/20 05:00 Anion Gap 9 (5-19) 05/28/20 05:00 BUN 6 mg/dL (7-20) L 05/28/20 05:00 Creatinine 0.47 mg/dL (0.52-1.25) L 05/28/20 05:00 Est GFR ( Amer) > 60 (>60) 05/28/20 05:00 Est GFR (MDRD) Non-Af > 60 (>60) 05/28/20 05:00 Glucose 104 mg/dL (75-110) 05/28/20 05:00 POC Glucose 233 mg/dL (70-110) H 05/26/20 11:16 Lactic Acid 1.6 mmol/L (0.7-2.1) 05/23/20 19:52 Calcium 7.4 mg/dL (8.4-10.2) L 05/28/20 05:00 Ionized Calcium [place] 1.15 mmol/L (1.14-1.30) 05/23/20 22:06 Phosphorus 3.4 mg/dL (2.5-4.5) 05/24/20 06:50 Magnesium 1.9 mg/dL (1.6-2.3) 05/28/20 05:00 Total Bilirubin 0.7 mg/dL (0.2-1.3) 05/28/20 05:00 Direct Bilirubin 0.5 mg/dL (0.0-0.4) H 05/28/20 05:00 Neonat Total Bilirubin Not Reportable 05/28/20 05:00 Neonat Direct Bilirubin Not Reportable 05/28/20 05:00 Neonat Indirect Bili Not Reportable 05/28/20 05:00 AST 30 U/L (14-36) 05/28/20 05:00 ALT 26 U/L (<35) 05/28/20 05:00 Alkaline Phosphatase 138 U/L (38-126) H 05/28/20 05:00 Ammonia < 8.7 umol/L (9-33) L 05/24/20 06:50 Total Protein 5.0 g/dL (6.3-8.2) L 05/28/20 05:00 Albumin 3.0 g/dL (3.5-5.0) L 05/28/20 05:00 Vitamin D 25-Hydroxy 32.3 ng/mL (14.7-68.3) 05/25/20 06:40 TSH 1.05 uIU/mL (0.47-4.68) 05/23/20 19:55 PTH Intact 324.6 pg/mL (10.0-65.0) H 05/25/20 06:40 Urine Color YELLOW 05/23/20 20:11 Urine Appearance CLEAR 05/23/20 20:11 Urine pH 6.0 (5.0-9.0) 05/23/20 20:11 Ur Specific [place] 1.011 05/23/20 20:11 Urine Protein NEGATIVE mg/dL (NEGATIVE) 05/23/20 20:11 Urine Glucose (UA) NEGATIVE mg/dL (NEGATIVE) 05/23/20 20:11 Urine Ketones NEGATIVE mg/dL (NEGATIVE) 05/23/20 20:11 Urine Blood NEGATIVE (NEGATIVE) 05/23/20 20:11 Urine Nitrite NEGATIVE (NEGATIVE) 05/23/20 20:11 Urine Bilirubin NEGATIVE (NEGATIVE) 05/23/20 20:11 Urine Urobilinogen NEGATIVE mg/dL (<2.0) 05/23/20 20:11 Ur Leukocyte Esterase NEGATIVE (NEGATIVE) 05/23/20 20:11 Urine WBC (Auto) 1 /HPF 05/23/20 20:11 Urine RBC (Auto) 0 /HPF 05/23/20 20:11 Urine Bacteria (Auto) TRACE /HPF 05/23/20 20:11 Urine Mucus (Auto) RARE /LPF 05/23/20 20:11 Urine Creatinine 24.0 mg/dL (15-278) 05/24/20 08:25 Urine Sodium 182 mmol/L (30-90) H 05/24/20 08:25 Urine Ascorbic Acid NEGATIVE (NEGATIVE) 05/23/20 20:11 Phenytoin 25.8 ug/mL (10.0-20.0) H* 05/28/20 13:48 Levetiracetam 91.4 ug/mL (10.0-40.0) H 05/23/20 19:52 Slides for Path Review PATHOLOGIST REVIEWED 05/23/20 19:52 Impressions: Abdomen/Pelvis CT 05/24/20 00:00 IMPRESSION: Increasing left pleural effusion. Complete collapse of left lower lobe as described. IMPRESSION: No acute findings in the abdomen or pelvis. The study is degraded by respiratory motion. Chest CT 05/24/20 00:00 IMPRESSION: Increasing left pleural effusion. Complete collapse of left lower lobe as described. IMPRESSION: No acute findings in the abdomen or pelvis. The study is degraded by respiratory motion. Head CT 05/24/20 00:00 IMPRESSION: 1. Small metastatic foci in the left cerebral hemisphere are again noted but less apparent on the current study. This in part is due to lack of IV contrast. 2. No intracranial hemorrhage. No midline shift. EVIDENCE OF ACUTE STROKE: NO. Plan Plan of Treatment: Home with hospice Time Spent: Less than 30 Minutes Stroke Is this a Stroke Patient?: No Acute Heart Failure Is this a Heart Failure Patient?: No
== END 2020-05-29 09:34 | disposition hospice, home (50) | DRG 100 ==
LOC: ER 19:26 → EH 20:08 → INTOOBSV 20:08 → 4S 21:00 → OBSVTOIN 05-24 14:40
PROVIDERS: ADMIT Internal Medicine; ATTEND Internal Medicine
DX: G40.211 Localization-related (focal) (partial) symptomatic epilepsy and epileptic syndromes with complex partial seizures, intractable, with status epilepticus (principal); E43 Unspecified severe protein-calorie malnutrition; G81.91 Hemiplegia, unspecified affecting right dominant side; C34.32 Malignant neoplasm of lower lobe, left bronchus or lung; C91.10 Chronic lymphocytic leukemia of B-cell type not having achieved remission; C79.31 Secondary malignant neoplasm of brain; Z68.1 Body mass index [BMI] 19.9 or less, adult; J90 Pleural effusion, not elsewhere classified; E87.1 Hypo-osmolality and hyponatremia; E86.0 Dehydration; I10 Essential (primary) hypertension; E03.9 Hypothyroidism, unspecified; F41.9 Anxiety disorder, unspecified; Z66 Do not resuscitate; E83.51 Hypocalcemia; E83.42 Hypomagnesemia; R33.9 Retention of urine, unspecified; D64.9 Anemia, unspecified; Z92.21 Personal history of antineoplastic chemotherapy; Z79.899 Other long term (current) drug therapy; Z88.0 Allergy status to penicillin; Z88.2 Allergy status to sulfonamides; Z79.52 Long term (current) use of systemic steroids; Z92.3 Personal history of irradiation
CPT/HCPCS: 36415; 70450; 70544; 70553; 71260; 74177; 80053; 80177; 80185; 81001; 82140; 82306; 82330; 82570; 82962; 83605; 83735; 83970; 84100; 84300; 84443; 85025; 85610; 87040; 93005; 93010; 95819; 96365; 96366; 96367; 99285; J0610; A9576; C9113; C9254; G0378; J0360; J0692; J1100; J1165; J1642; J1650; J1940; J1953; J2060; J3420; J3475; J3480; J3490; J7030; J7042; J7050; P9047

== ENCOUNTER 2020-06-02 05:31 | Inpatient (IN) | payer MEDICARE, MEDICAID ==
[2020-06-02] MEDS ORDERED: DEXTROSE 5%-LACTATED RINGERS 1,000 ML IV ONE (05:47)
--- NOTE | 2020-06-02 05:53 | ER Document Report ---
ED General - General Stated Complaint: LETHARGIC,DEHYDRATION,DROWSY Time Seen by Provider: 06/02/20 05:46 Primary Care Provider: KHRIS TIDWELL MD [Primary Care Provider] - Follow up as needed TRAVEL OUTSIDE OF THE [place] IN LAST 30 DAYS: No - HPI Notes: 74-year-old female presents with concerns for dehydration. Information is provided by patient's son, Dr. Tidwell who is 1 of our inpatient doctors. 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 She had a recent work-up which revealed a brain mets, she underwent radiation treatment. Has developed some right side paralysis, had recent MRIs which were negative for stroke. Additionally has seizures and was recently loaded with multiple antiepileptics. Earlier this week had lab work done which had some electrolyte abnormalities which were replaced. She has been started on home hospice. A scopolamine patch was placed on her yesterday, family has noted that she has been more drowsy than usual and her pupils have been dilated. Scolding patch was removed at home. She has had decreased oral intake for the past day, concern for dehydration, would like her to have fluids given. - Related Data Allergies/Adverse Reactions: Penicillins Allergy (Unknown, Verified 06/18/13 12:21) Sulfa (Sulfonamide Antibiotics) Allergy (Unknown, Verified 06/18/13 12:21) Past Medical History - General Information source: Relative - Social History Smoking Status: Unknown if Ever Smoked Family History: Reviewed & Not Pertinent - Past Medical History Cardiac Medical History: Reports: Hx Hypertension Denies: Hx Heart Attack Pulmonary Medical History: Denies: Hx Asthma, Hx Tuberculosis Neurological Medical History: Denies: Hx Cerebrovascular Accident, Hx Seizures Renal/ Medical History: Denies: Hx Peritoneal Dialysis Malignancy Medical History: Reports: Hx Lung Cancer GI Medical History: Denies: Hx Hepatitis, Hx Hiatal Hernia, Hx Ulcer Psychiatric Medical History: Denies: Hx Depression Infectious Medical History: Denies: Hx Hepatitis Past Surgical History: Denies: Hx Mastectomy, Hx Open Heart Surgery, Hx Pacemaker - Immunizations Hx Diphtheria, Pertussis, Tetanus Vaccination: No Review of Systems - Review of Systems -: Yes ROS unobtainable due to patient's medical condition Physical Exam - General General appearance: Other - Chronically ill-appearing In distress: None - HEENT Head: Normocephalic, Atraumatic Extraocular movements intact: Yes Pupils: PERRL, Dilated - Respiratory Breath sounds: Rhonchi - Cardiovascular Rhythm: Tachycardia Heart sounds: Normal auscultation - Abdominal Distension: No distension Tenderness: Nontender - Extremities General lower extremity: No: Edema - Neurological Notes: Patient regards son and communicates with him in mentasta tongue - Psychological Associated symptoms: Other - Unable to assess - Skin Skin Temperature: Warm Skin Color: Ashen Course - Re-evaluation Re-evalutation: 74-year-old female with metastatic cancer on hospice care here for drowsiness associated with scopolamine patch, some decreased oral intake as well. Patient is otherwise at her baseline per family. She is chronically ill-appearing, does communicate with her family in mentasta tongue. Goals of care addressed with family, would like electrolytes checked and fluids to be given. I feel that this is reasonable. D5LR infusion ordered. Patient is DNR/DNI. Patient care to be handed off to Dr. Daugherty, pending laboratory evaluation Discharge - Discharge Clinical Impression: Poor fluid intake Disposition: HOME, SELF-CARE Referrals: KHRIS TIDWELL MD [Primary Care Provider] - Follow up as needed
[2020-06-02] MEDS ORDERED: ACETAMINOPHEN 650 MG SUPP.RECT PR ONE (06:03)
[2020-06-02 06:30] LABS: HEMATOCRIT 31.5 % (36.0-47.0); HEMOGLOBIN 10.3 g/dL (12.0-15.5); MEAN CORPUSCULAR HEMOGLOBIN 29.8 pg (27.0-33.4); MEAN CORPUSCULAR HGB CONC 32.8 g/dL (32.0-36.0); MEAN CORPUSCULAR VOLUME 91 fl (80-97); PLATELET COUNT 205 10^3/uL (150-450); RED BLOOD COUNT 3.47 10^6/uL (3.72-5.28); RED CELL DISTRIBUTION WIDTH 16.5 % (11.5-14.0); WHITE BLOOD COUNT 20.2 10^3/uL (4.0-10.5)
[2020-06-02 06:49] LABS: ANION GAP 9 (5-19); BLOOD UREA NITROGEN 36 mg/dL (7-20); CALCIUM 7.7 mg/dL (8.4-10.2); CARBON DIOXIDE 24 mmol/L (22-30); CHLORIDE 105 mmol/L (98-107); GLUCOSE 85 mg/dL (75-110); PHOSPHORUS 1.9 mg/dL (2.5-4.5); POTASSIUM 3.5 mmol/L (3.6-5.0)
[2020-06-02 06:53] LABS: ABSOLUTE LYMPHOCYTES# (MANUAL) 4.6 10^3/uL (0.5-4.7); BAND NEUTROPHILS % (MANUAL) 4 % (3-5); BASOPHILS % (MANUAL) 0 % (0-2); EOSINOPHILS % (MANUAL) 2 % (0-6); LYMPHOCYTES % (MANUAL) 23 % (13-45); MONOCYTES % (MANUAL) 5 % (3-13); SEGMENTED NEUTROPHILS % (MAN) 66 % (42-78); TOTAL CELLS COUNTED 100
[2020-06-02 06:55] LABS: ANISOCYTOSIS 1+; BURR CELLS SLIGHT; OVALOCYTES SLIGHT; PLATELET COMMENT ADEQUATE; POIKILOCYTOSIS SLIGHT; POLYCHROMASIA SLIGHT; TOXIC GRANULATION SLIGHT
[2020-06-02] MEDS ORDERED: CEFEPIME 2 GM/D5W RTU 2 GM/50 ML RTUPB IV ONE (07:15)
[2020-06-02] MEDS ORDERED: LACOSAMIDE INJ/PF 200 MG/20 ML SDV IV ONE (07:17)
--- NOTE | 2020-06-02 08:22 | RADIOLOGY REPORT (SQ) ---
EXAM DESCRIPTION: CHEST SINGLE VIEW IMAGES COMPLETED DATE/TIME: 06/02/2020 6:37 am REASON FOR STUDY: metastatic cancer/cll/fever COMPARISON: CT chest, abdomen and pelvis, 05/24/2020. Chest radiograph, 11/27/2019. EXAM PARAMETERS: NUMBER OF VIEWS: One view. TECHNIQUE: Single frontal radiographic view of the chest acquired. RADIATION DOSE: NA LIMITATIONS: None. FINDINGS: LUNGS AND PLEURA: Post treatment changes in the left lung are stable. Resolved left effus ion. No pneumothorax. MEDIASTINUM AND HILAR STRUCTURES: No masses. Contour normal. HEART AND VASCULAR STRUCTURES: Heart normal in size. Normal vasculature. BONES: No acute findings. HARDWARE: None in the chest. OTHER: No other significant finding. IMPRESSION: Resolved left pleural effusion. No acute cardiopulmonary disease. TECHNICAL DOCUMENTATION: JOB ID: [id number] [employer]- All Rights Reserved Reading location - IP/workstation name: [email or web address]
--- NOTE | 2020-06-02 08:35 | PDOC CONSULTATION ---
Consultation Consult Date: 06/02/20 Attending physician:: CLAY JONES Provider Consulted: CIELO MOONEY Consult reason:: Patient on hospice but admitted for extreme weakness, confusion dehydration History of Present Illness Admission Date/PCP: 06/02/20 08:29 CIELO MOONEY MD Patient complains of: Weakness, confusion History of Present Illness: ZIGGY TIDWELL is a 74 year old female with known history of stage IV lung cancer with brain metastasis. She was discharged about a week ago on hospice. Unfortunately, overnight patient became more unresponsive and confused, lethargic, became very worried with her condition, they consulted hospice and ultimately decision was made to send to the ER for further evaluation. Upon admission she was found to have fever, probable UTI, was given fluid and seems more responsive today. Past Medical History Cardiac Medical History: Reports: Hypertension Denies: Myocardial Infarction Pulmonary Medical History: Denies: Asthma, Tuberculosis Neurological Medical History: Denies: Seizures Malignancy Medical History: Reports: Lung Cancer GI Medical History: Denies: Hepatitis, Hiatal Hernia Psychiatric Medical History: Denies: Depression Hematology: Reports: Anemia Denies: Sickle Cell Disease Past Surgical History Past Surgical History: Denies: Amputation, Mastectomy, Pacemaker Social History Smoking Status: Unknown if Ever Smoked Electronic Cigarette use?: No Frequency of Alcohol Use: None Hx Recreational Drug Use: No Hx Prescription Drug Abuse: No Family History Family History: Reviewed & Not Pertinent Parental Family History Reviewed: Yes Children Family History Reviewed: Yes Sibling(s) Family History Reviewed.: Yes Medication/Allergy Allergies/Adverse Reactions: Penicillins Allergy (Unknown, Verified 06/18/13 12:21) Sulfa (Sulfonamide Antibiotics) Allergy (Unknown, Verified 06/18/13 12:21) Review of Systems Constitutional: ABSENT: chills, fever(s), headache(s), weight gain, weight loss Eyes: ABSENT: visual disturbances Ears: ABSENT: hearing changes Cardiovascular: ABSENT: chest pain, dyspnea on exertion, edema, orthropnea, palpitations Respiratory: ABSENT: cough, hemoptysis Gastrointestinal: ABSENT: abdominal pain, constipation, diarrhea, hematemesis, hematochezia, nausea, vomiting Genitourinary: ABSENT: dysuria, hematuria Musculoskeletal: ABSENT: joint swelling Integumentary: ABSENT: rash, wounds Neurological: ABSENT: abnormal gait, abnormal speech, confusion, dizziness, focal weakness, syncope Psychiatric: ABSENT: anxiety, depression, homidical ideation, suicidal ideation Endocrine: ABSENT: cold intolerance, heat intolerance, polydipsia, polyuria Hematologic/Lymphatic: ABSENT: easy bleeding, easy bruising Physical Exam Vital Signs: Temp Pulse Resp BP Pulse Ox 103.8 F H 29 H 88/50 L 97 06/02/20 06:57 06/02/20 07:01 06/02/20 07:00 06/02/20 07:01 General appearance: PRESENT: no acute distress Head exam: PRESENT: atraumatic Respiratory exam: PRESENT: clear to auscultation neelima. ABSENT: rales, rhonchi, wheezes Cardiovascular exam: PRESENT: RRR. ABSENT: diastolic murmur, rubs, systolic murmur Results Laboratory Results: 06/02/20 06:08 06/02/20 06:08 06/02/20 06/02/20 06:08 06:08 WBC 20.2 H RBC 3.47 L Hgb 10.3 L Hct 31.5 L MCV 91 MCH 29.8 MCHC 32.8 RDW 16.5 H Plt Count 205 Seg Neutrophils % Not Reportable Sodium 138.1 Potassium 3.5 L Chloride 105 Carbon Dioxide 24 Anion Gap 9 BUN 36 H Creatinine 1.48 H Est GFR ( Amer) 41 L Glucose 85 Calcium 7.7 L Phosphorus 1.9 L Magnesium 2.2 Impressions: Chest X-Ray 06/02/20 07:16 IMPRESSION: Resolved left pleural effusion. No acute cardiopulmonary disease. Assessment & Plan - Diagnosis (1) Lung cancer Qualifiers: Laterality: left Lung location: lower lobe of lung Qualified Code(s): C34.32 - Malignant neoplasm of lower lobe, left bronchus or lung Is this a current diagnosis for this admission?: Yes Plan: Not a candidate for further therapy. I had a long discussion with the son and family we will keep her for 24-hour observation for IV fluids and probably get her back home on hospice tomorrow. (2) UTI (urinary tract infection) Qualifiers: Urinary tract infection type: catheter-associated UTI Indwelling urinary catheter type: indwelling urethral catheter Encounter type: initial encounter Qualified Code(s): T83.511A - Infection and inflammatory reaction due to indwelling urethral catheter, initial encounter; N39.0 - Urinary tract infection, site not specified Is this a current diagnosis for this admission?: Yes Plan: Patient came with urinary catheter, probable catheter associated infection but we need to keep the catheter in. We will plan for antibiotics. (3) Dehydration Is this a current diagnosis for this admission?: Yes Plan: Fluids for 24 hours (4) Fever Qualifiers: Fever type: due to other condition Qualified Code(s): R50.81 - Fever presenting with conditions classified elsewhere Is this a current diagnosis for this admission?: Yes Plan: Fever secondary to UTI, continue antibiotics as above - Time Time Spent: Greater than 70 Minutes
[2020-06-02] MEDS ORDERED: ACETAMINOPHEN 650 MG SUPP.RECT PR PRN (12:10)
[2020-06-02] MEDS ORDERED: NORMAL SALINE 1000 ML 1,000 ML IV PRN (12:11)
[2020-06-02] MEDS ORDERED: LEVOFLOXACIN 500 MG/D5W RTU 500 MG/100 ML RTUPB IV ONE (13:00)
--- NOTE | 2020-06-02 13:45 | Progress Note ---
Provider Note Provider Note: Had long discussion with family today, pt is doing better, communicating, worked w/ speech and is swallowing. Family decided against going back on hospice and would like to get back on home health instead with [facility] whom they had before. We will make arrangements. Pt needs home health services for med management, home PT, home speech rx consideration.
[2020-06-02 14:40] LABS: APPEARANCE,URINE CLOUDY; BILIRUBIN,URINE SMALL (NEGATIVE); COLOR,URINE AMBER; GLUCOSE, URINE 50 mg/dL (NEGATIVE); KETONES,URINE TRACE mg/dL (NEGATIVE); LEUKOCYTE ESTERASE,URINE TRACE (NEGATIVE); NITRITE,URINE NEGATIVE (NEGATIVE); PROTEIN,URINE 30 mg/dL (NEGATIVE); URINE SPECIFIC GRAVITY 1.027
[2020-06-02] MEDS ORDERED: DEXTROSE 5%-NORMAL SALINE 1,000 ML IV PRN (14:51)
--- NOTE | 2020-06-02 15:52 | PDOC H&P ---
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 Tidwell, who was brought to the ED due to observed change in mentation and responsiveness by her . Family reported that patient had scopolamine patch placed yesterday due to increase salivation. She subsequently became drowsy with dilated pupils. Family removed Scopolamine patch prior to arrival in the ED. Also, family reported poor oral intake with concern about dehydration. Her morbidities include metastatic left lower lobe lung cancer with brain involvement s/p gamma knife and chemotherapy management, seizure disorder with recent protracted episode and difficult medical management, and CLL. Her initial ED evaluation was significant for leukocytosis, electrolytes derangement, and acute renal injury. She will be admitted to observation bed for further evaluation and management. Past Medical History Cardiac Medical History: Reports: Hypertension Denies: Myocardial Infarction Pulmonary Medical History: Denies: Asthma, Tuberculosis Neurological Medical History: Denies: Seizures Malignancy Medical History: Reports: Lung Cancer GI Medical History: Denies: Hepatitis, Hiatal Hernia Psychiatric Medical History: Denies: Depression Hematology: Reports: Anemia Denies: Sickle Cell Disease Past Surgical History Past Surgical History: Denies: Amputation, Mastectomy, Pacemaker Social History Smoking Status: Unknown if Ever Smoked Electronic Cigarette use?: No Frequency of Alcohol Use: None Hx Recreational Drug Use: No Hx Prescription Drug Abuse: No - Advance Directive Resuscitation Status: Do Not Resuscitate Family History Family History: Reviewed & Not Pertinent Parental Family History Reviewed: Yes Children Family History Reviewed: Yes Sibling(s) Family History Reviewed.: Yes Medication/Allergy Home Medications: Atenolol [Tenormin 50 mg Tablet] 50 mg PO DAILY 06/02/20 Cholecalciferol (Vitamin D3) [Vitamin D] 50,000 unit PO MO@1000 06/02/20 Dexamethasone [Decadron 4 Mg Tablet] 4 mg PO DAILY 06/02/20 Esomeprazole Magnesium 40 mg PO DAILY 06/02/20 Famotidine [Pepcid 20 mg Tablet] 20 mg PO DAILY 06/02/20 Folic Acid 1 mg PO DAILY 06/02/20 Levetiracetam [Keppra 500 mg Tablet] 500 mg PO Q12 10/02/20 Levothyroxine Sodium [Synthroid 0.1 mg Tablet] 0.1 mg PO DAILY 06/02/20 Lorazepam [Ativan 0.5 mg Tablet] 0.5 mg PO Q8HP PRN 06/02/20 Allergies/Adverse Reactions: Penicillins Allergy (Unknown, Verified 06/18/13 12:21) Sulfa (Sulfonamide Antibiotics) Allergy (Unknown, Verified 06/18/13 12:21) Review of Systems Constitutional: PRESENT: fatigue, weakness Nose, Mouth, and Throat: ABSENT: headache(s) Cardiovascular: PRESENT: dyspnea on exertion - on supplemental oxygen therapy. ABSENT: chest pain Respiratory: PRESENT: cough - with minimal sputum production Gastrointestinal: PRESENT: other - poor oral intake.. ABSENT: abdominal pain, nausea, vomiting Genitourinary: PRESENT: other - indwelling winslow catheter Neurological: PRESENT: abnormal gait - due to generalized weakness, convulsions - per history but none since discharge on Vimpat therapy. Hematologic/Lymphatic: ABSENT: easy bleeding Physical Exam Vital Signs: Temp Pulse Resp BP Pulse Ox 98.3 F 27 H 104/59 L 100 06/02/20 08:27 06/02/20 12:30 06/02/20 12:30 06/02/20 10:12 Intake & Output 06/01/20 06/02/20 06/03/20 06:59 06:59 06:59 Intake Total 1050 Balance 1050 Weight 37.966 kg General appearance: PRESENT: mild distress - on supplemental oxygen via nasal cannula at 3L/min, thin Head exam: PRESENT: atraumatic, normocephalic Eye exam: PRESENT: conjunctiva pink. ABSENT: scleral icterus Respiratory exam: PRESENT: decreased breath sounds - at left lower lung zone Cardiovascular exam: PRESENT: RRR, +S1, +S2. ABSENT: diastolic murmur, rubs, systolic murmur Vascular exam: ABSENT: pallor GI/Abdominal exam: PRESENT: normal bowel sounds, soft. ABSENT: distended, guarding, mass, organolmegaly, rebound, tenderness Extremities exam: ABSENT: pedal edema Neurological exam: PRESENT: alert, awake Skin exam: PRESENT: dry, warm Results Laboratory Results: 06/02/20 06:08 06/02/20 06:08 06/02/20 06/02/20 06/02/20 06:08 06:08 14:10 WBC 20.2 H RBC 3.47 L Hgb 10.3 L Hct 31.5 L MCV 91 MCH 29.8 MCHC 32.8 RDW 16.5 H Plt Count 205 Seg Neutrophils % Not Reportable Sodium 138.1 Potassium 3.5 L Chloride 105 Carbon Dioxide 24 Anion Gap 9 BUN 36 H Creatinine 1.48 H Est GFR ( Amer) 41 L Glucose 85 Calcium 7.7 L Phosphorus 1.9 L Magnesium 2.2 Urine Color MEÑO Urine Appearance CLOUDY Urine pH 5.0 Ur Specific [place] 1.027 Urine Protein 30 H Urine Glucose (UA) 50 H Urine Ketones TRACE H Urine Blood SMALL H Urine Nitrite NEGATIVE Ur Leukocyte Esterase TRACE H Urine WBC (Auto) 15 Urine RBC (Auto) 8 Impressions: Chest X-Ray 06/02/20 07:16 IMPRESSION: Resolved left pleural effusion. No acute cardiopulmonary disease. Assessment & Plan - Diagnosis (1) Probable sepsis Is this a current diagnosis for this admission?: Yes Plan: See attending physician orders for details about care plan. (2) Acute renal injury due to hypovolemia Is this a current diagnosis for this admission?: Yes Plan: See attending physician orders for details about care plan. (3) Hypokalemia due to inadequate potassium intake Is this a current diagnosis for this admission?: Yes Plan: See attending physician orders for details about care plan. (4) Seizure disorder Is this a current diagnosis for this admission?: Yes Plan: See attending physician orders for details about care plan. (5) Lung cancer metastatic to brain Is this a current diagnosis for this admission?: Yes Plan: See attending physician orders for details about care plan. (6) History of chronic lymphocytic leukemia Is this a current diagnosis for this admission?: Yes Plan: See attending physician orders for details about care plan. (7) Malnutrition Qualifiers: Malnutrition type: protein-calorie malnutrition Protein-calorie malnutrition severity: moderate Qualified Code(s): E44.0 - Moderate protein- calorie malnutrition Is this a current diagnosis for this admission?: Yes Plan: See attending physician orders for details about care plan. - Time Time Spent: 50 to 70 Minutes Medications reviewed and adjusted accordingly: Yes Anticipated Discharge Disposition: Home with Home Health Anticipated Discharge Timeframe: within 72 hours - Inpatient Certification Based on my medical assessment, after consideration of the patient's comorbidities, presenting symptoms, or acuity I expect that the services needed warrant INPATIENT care.: Yes I certify that my determination is in accordance with my understanding of Medicare's requirements for reasonable and necessary INPATIENT services [42 CFR 412.3e].: Yes Medical Necessity: Significant Comorbidiites Make Outpatient Treatment Too Risky, Need Close Monitoring Due to Risk of Patient Decompensation, Need For IV Fluids, Need for IV Antibiotics, Risk of Complication if Not Cared For in Hospital, Risk of Diagnosis Which Will Require Inpatient Eval/Care/Monitoring Post Hospital Care: D/C Escalator Mechanic Documentation - Plan Summary Plan Summary: See attending physician orders for details about care plan.
--- NOTE | 2020-06-02 15:54 | ADVANCED CARE ---
- Diagnosis (1) Probable sepsis Diagnosis Current: Yes (2) Acute renal injury due to hypovolemia Diagnosis Current: Yes (3) Hypokalemia due to inadequate potassium intake Diagnosis Current: Yes (4) Seizure disorder Diagnosis Current: Yes (5) Lung cancer metastatic to brain Diagnosis Current: Yes (6) History of chronic lymphocytic leukemia Diagnosis Current: Yes (7) Malnutrition Diagnosis Current: Yes Attendance: Dr. Rodas, Spouse Resuscitation Status: Do Not Resuscitate Discussion: Family discontinue hospice service and plan for home health services upon discharge. Care Planning Goals: Treat acute correctable illness but maintain on DNR/DNI status. Document(s) Completed: Yes. Time Spent: 15 mins
[2020-06-02] MEDS: PHOSPHORUS #1 250 MG TABLET PO SCH ×2 (17:47→21:26)
[2020-06-02] MEDS: DEXTROSE 5%-NORMAL SALINE 1,000 ML IV PRN (18:22)
[2020-06-02] MEDS: CEFEPIME 1 GM/D5W RTU 1 GM/50 ML RTUPB IV SCH (21:41)
[2020-06-02] MEDS: PANTOPRAZOLE SODIUM 40 MG VIAL IV SCH (21:41)
[2020-06-02] MEDS: LACOSAMIDE INJ/PF 200 MG/20 ML SDV IV SCH (21:41)
[2020-06-02] MEDS ORDERED: LEVETIRACETAM 500 MG TABLET PO SCH (22:00)
[2020-06-03] MEDS ORDERED: PANTOPRAZOLE SODIUM 40 MG TABLET.DR PO SCH (06:00)
[2020-06-03 06:35] LABS: ABSOLUTE BASOPHILS # (AUTO) 0.1 10^3/uL (0.0-0.2); ABSOLUTE EOSINOPHILS # (AUTO) 0.4 10^3/uL (0.0-0.6); ABSOLUTE MONOCYTES (AUTO) 0.4 10^3/uL (0.1-1.4); ABSOLUTE NEUT (AUTO) 10.8 10^3/uL (1.7-8.2); BASOPHILS % (AUTO) 0.6 % (0-2); EOSINOPHILS % (AUTO) 2.7 % (0-6); HEMATOCRIT 24.8 % (36.0-47.0); HEMOGLOBIN 8.3 g/dL (12.0-15.5); LYMPHOCYTES % (AUTO) 20.8 % (13-45); MEAN CORPUSCULAR HGB CONC 33.4 g/dL (32.0-36.0); MEAN CORPUSCULAR VOLUME 90 fl (80-97); MONOCYTES % (AUTO) 2.5 % (3-13); PLATELET COUNT 140 10^3/uL (150-450); RED BLOOD COUNT 2.77 10^6/uL (3.72-5.28); RED CELL DISTRIBUTION WIDTH 16.3 % (11.5-14.0); SEGMENTED NEUTROPHILS % (AUTO) 73.4 % (42-78); TOTAL CELLS COUNTED % (AUTO) 100 %; WHITE BLOOD COUNT 14.7 10^3/uL (4.0-10.5)
[2020-06-03 06:55] LABS: ALBUMIN 1.7 g/dL (3.5-5.0); ALKALINE PHOSPHATASE 108 U/L (38-126); ANION GAP 5 (5-19); ASPARTATE AMINO TRANSFERASE 38 U/L (14-36); BILIRUBIN,DIRECT 0.5 mg/dL (0.0-0.4); BILIRUBIN,TOTAL 0.7 mg/dL (0.2-1.3); BLOOD UREA NITROGEN 41 mg/dL (7-20); CALCIUM 7.2 mg/dL (8.4-10.2); CARBON DIOXIDE 22 mmol/L (22-30); CHLORIDE 111 mmol/L (98-107); GLUCOSE 113 mg/dL (75-110); NEONATAL BILIRUBIN RESULT 0.1 mg/dL (0.1-1.1); POTASSIUM 3.2 mmol/L (3.6-5.0); TOTAL PROTEIN 3.4 g/dL (6.3-8.2)
[2020-06-03] MEDS: PHOSPHORUS #1 250 MG TABLET PO SCH ×4 (07:40→21:56)
[2020-06-03] MEDS: LEVOTHYROXINE SODIUM 0.1 MG TABLET PO SCH (09:27)
[2020-06-03] MEDS: CEFEPIME 1 GM/D5W RTU 1 GM/50 ML RTUPB IV SCH ×2 (09:41→22:06)
[2020-06-03] MEDS: LACOSAMIDE INJ/PF 200 MG/20 ML SDV IV SCH ×2 (09:41→22:06)
[2020-06-03] MEDS: PANTOPRAZOLE SODIUM 40 MG VIAL IV SCH ×2 (09:41→22:07)
[2020-06-03] MEDS: ENOXAPARIN SODIUM INJ 30 MG/0.3 ML DISP.SYRIN SUBCUT SCH (09:42)
[2020-06-03] MEDS: DEXTROSE 5%-NORMAL SALINE 1,000 ML IV PRN (09:42)
[2020-06-03] MEDS ORDERED: FOLIC ACID 1 MG TABLET PO SCH (10:00)
[2020-06-03] MEDS ORDERED: ATENOLOL 50 MG TABLET PO SCH (10:00)
[2020-06-03] MEDS ORDERED: LEVOFLOXACIN 250 MG/D5W RTU 250 MG/50 ML RTUPB IV SCH (10:00)
--- NOTE | 2020-06-03 11:26 | PDOC PROGRESS REPORT ---
Subjective Progress Note for:: 06/03/20 Subjective:: Patient lethargic today, did not sleep through the night. But was active through the night and has been swallowing. Urine output has been decreased. Reason For Visit: POOR FLUID INTAKE,LUNG CANCER. Physical Exam Vital Signs: Temp Pulse Resp BP Pulse Ox 100.0 F 118 H 18 118/56 L 100 06/03/20 08:55 06/03/20 08:04 06/03/20 08:04 06/03/20 08:04 06/03/20 08:04 Intake & Output 06/02/20 06/03/20 06/04/20 06:59 06:59 06:59 Intake Total 1100 1050 Output Total 100 Balance 1000 1050 Weight 37.8 kg General appearance: PRESENT: no acute distress Head exam: PRESENT: atraumatic Neck exam: ABSENT: carotid bruit, JVD, lymphadenopathy, thyromegaly Respiratory exam: PRESENT: clear to auscultation neelima. ABSENT: rales, rhonchi, wheezes Cardiovascular exam: PRESENT: RRR. ABSENT: diastolic murmur, rubs, systolic murmur GI/Abdominal exam: PRESENT: normal bowel sounds, soft. ABSENT: distended, guarding, mass, organolmegaly, rebound, tenderness Rectal exam: PRESENT: deferred Neurological exam: PRESENT: altered Results Laboratory Results: 06/03/20 06:10 06/03/20 06:10 06/02/20 06/03/20 06/03/20 14:10 06:10 06:10 WBC 14.7 H RBC 2.77 L Hgb 8.3 L Hct 24.8 L MCV 90 MCH 30.0 MCHC 33.4 RDW 16.3 H Plt Count 140 L Seg Neutrophils % 73.4 Sodium 138.2 Potassium 3.2 L Chloride 111 H Carbon Dioxide 22 Anion Gap 5 BUN 41 H Creatinine 1.43 H Est GFR ( Amer) 43 L Glucose 113 H Calcium 7.2 L Total Bilirubin 0.7 AST 38 H Alkaline Phosphatase 108 Total Protein 3.4 L Albumin 1.7 L Urine Color MEÑO Urine Appearance CLOUDY Urine pH 5.0 Ur Specific [place] 1.027 Urine Protein 30 H Urine Glucose (UA) 50 H Urine Ketones TRACE H Urine Blood SMALL H Urine Nitrite NEGATIVE Ur Leukocyte Esterase TRACE H Urine WBC (Auto) 15 Urine RBC (Auto) 8 Impressions: Chest X-Ray 06/02/20 07:16 IMPRESSION: Resolved left pleural effusion. No acute cardiopulmonary disease. Assessment & Plan - Diagnosis (1) Lung cancer Qualifiers: Laterality: left Lung location: lower lobe of lung Qualified Code(s): C34.32 - Malignant neoplasm of lower lobe, left bronchus or lung Is this a current diagnosis for this admission?: Yes Plan: As noted no further treatment planned, initially patient was on hospice but as patient was improving family decided against further hospice, continuing acute care with treatment for the UTI and dehydration, home [facility] services [facility] discharge with [facility]. (2) UTI (urinary tract infection) Qualifiers: Urinary tract infection type: catheter-associated UTI Indwelling urinary catheter type: indwelling urethral catheter Encounter type: initial encounter Qualified Code(s): T83.511A - Infection and inflammatory reaction due to indwelling urethral catheter, initial encounter; N39.0 - Urinary tract infection, site not specified Is this a current diagnosis for this admission?: Yes Plan: Continue current antibiotic therapy (3) Dehydration Is this a current diagnosis for this admission?: Yes Plan: Still continued, urine output is decreased, fluids will be increased (4) Fever Qualifiers: Fever type: due to other condition Qualified Code(s): R50.81 - Fever presenting with conditions classified elsewhere Is this a current diagnosis for this admission?: Yes Plan: Still present, may be related to the UTI - Time Time Spent with patient: 35 or more minutes
[2020-06-03] MEDS ORDERED: DEXTROSE 5%-NORMAL SALINE 1,000 ML IV PRN (12:25)
--- NOTE | 2020-06-03 12:42 | PDOC PROGRESS REPORT ---
Subjective Progress Note for:: 06/03/20 Subjective:: PO intake encouraging. No significant bowel movement. Urine output remain low. No fever. No difficulty with breathing. remain on supplemental oxygen via nasal cannula. Reason For Visit: POOR FLUID INTAKE,LUNG CANCER. Physical Exam Vital Signs: Temp Pulse Resp BP Pulse Ox 100.0 F 118 H 18 118/56 L 100 06/03/20 08:55 06/03/20 08:04 06/03/20 08:04 06/03/20 08:04 06/03/20 08:04 Intake & Output 06/02/20 06/03/20 06/04/20 06:59 06:59 06:59 Intake Total 1100 1050 Output Total 100 Balance 1000 1050 Weight 37.8 kg General appearance: PRESENT: no acute distress Head exam: PRESENT: atraumatic, normocephalic Eye exam: PRESENT: conjunctiva pink Mouth exam: PRESENT: moist Respiratory exam: PRESENT: clear to auscultation neelima, decreased breath sounds - left lower lung zone Cardiovascular exam: PRESENT: RRR, +S1, +S2. ABSENT: rubs Vascular exam: ABSENT: pallor GI/Abdominal exam: PRESENT: normal bowel sounds, soft Gentrourinary exam: PRESENT: indwelling catheter Extremities exam: ABSENT: pedal edema Neurological exam: PRESENT: alert, awake Skin exam: PRESENT: dry, warm Results Laboratory Results: 06/03/20 06:10 06/03/20 06:10 06/02/20 06/03/20 06/03/20 14:10 06:10 06:10 WBC 14.7 H RBC 2.77 L Hgb 8.3 L Hct 24.8 L MCV 90 MCH 30.0 MCHC 33.4 RDW 16.3 H Plt Count 140 L Seg Neutrophils % 73.4 Sodium 138.2 Potassium 3.2 L Chloride 111 H Carbon Dioxide 22 Anion Gap 5 BUN 41 H Creatinine 1.43 H Est GFR ( Amer) 43 L Glucose 113 H Calcium 7.2 L Total Bilirubin 0.7 AST 38 H Alkaline Phosphatase 108 Total Protein 3.4 L Albumin 1.7 L Urine Color MEÑO Urine Appearance CLOUDY Urine pH 5.0 Ur Specific [place] 1.027 Urine Protein 30 H Urine Glucose (UA) 50 H Urine Ketones TRACE H Urine Blood SMALL H Urine Nitrite NEGATIVE Ur Leukocyte Esterase TRACE H Urine WBC (Auto) 15 Urine RBC (Auto) 8 Impressions: Chest X-Ray 06/02/20 07:16 IMPRESSION: Resolved left pleural effusion. No acute cardiopulmonary disease. 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 Is this a current diagnosis for this admission?: Yes (6) History of chronic lymphocytic leukemia Is this a current diagnosis for this admission?: Yes (7) Malnutrition Qualifiers: Malnutrition type: protein-calorie malnutrition Protein-calorie malnutrition severity: moderate Qualified Code(s): E44.0 - Moderate protein-calorie malnutrition Is this a current diagnosis for this admission?: Yes - Time Time Spent with patient: 25-34 minutes Level of Care: MEDICAL Medications reviewed and adjusted accordingly: Yes Anticipated discharge: Home with Homehealth Anticipated DC Timeframe: within 72 hours - Inpatient Certification Based on my medical assessment, after consideration of the patient's comorbidities, presenting symptoms, or acuity I expect that the services needed warrant INPATIENT care.: Yes I certify that my determination is in accordance with my understanding of Medicare's requirements for reasonable and necessary INPATIENT services [42 CFR 412.3e].: Yes Medical Necessity: Significant Comorbidiites Make Outpatient Treatment Too Risky, Need Close Monitoring Due to Risk of Patient Decompensation, Need For IV Fluids, Need for IV Antibiotics, Risk of Complication if Not Cared For in Hospital, Risk of Diagnosis Which Will Require Inpatient Eval/Care/Monitoring Post Hospital Care: D/C Mapping Analyst Documentation - Plan Summary Plan Summary: Potassium supplementation with 40 mEq rider. Obtain serum Magnesium level. Ensure pudding for nutritional supplementation. Increase IV fluid rate to 100 ml/hour. Obtain CBC with Diff and BMP in AM.
[2020-06-03] MEDS: POTASSI CL 20 MEQ/50 ML RIDER 20 MEQ/50 ML RTUPB IV SCH ×2 (14:03→16:01)
[2020-06-03] MEDS ORDERED: GLYCERIN (PEDIATRIC) SUPP.RECT PR ONE (14:30)
[2020-06-03] MEDS ORDERED: FUROSEMIDE INJ/PF 20 MG/2 ML SDV IV ONE (17:15)
[2020-06-03] MEDS: NORMAL SALINE 1000 ML 1,000 ML IV PRN (17:57)
[2020-06-03 19:09] LABS: ANION GAP 5 (5-19); BLOOD UREA NITROGEN 44 mg/dL (7-20); CALCIUM 7.1 mg/dL (8.4-10.2); CARBON DIOXIDE 18 mmol/L (22-30); CHLORIDE 115 mmol/L (98-107); GLUCOSE 116 mg/dL (75-110)
[2020-06-03 19:21] LABS: ABSOLUTE BASOPHILS # (AUTO) 0.1 10^3/uL (0.0-0.2); ABSOLUTE EOSINOPHILS # (AUTO) 0.4 10^3/uL (0.0-0.6); ABSOLUTE LYMPHOCYTES (AUTO) 2.8 10^3/uL (0.5-4.7); ABSOLUTE MONOCYTES (AUTO) 0.4 10^3/uL (0.1-1.4); BASOPHILS % (AUTO) 0.4 % (0-2); EOSINOPHILS % (AUTO) 2.6 % (0-6); HEMATOCRIT 24.2 % (36.0-47.0); LYMPHOCYTES % (AUTO) 20.7 % (13-45); MEAN CORPUSCULAR HEMOGLOBIN 29.8 pg (27.0-33.4); MEAN CORPUSCULAR HGB CONC 33.1 g/dL (32.0-36.0); MEAN CORPUSCULAR VOLUME 90 fl (80-97); MONOCYTES % (AUTO) 2.8 % (3-13); PLATELET COUNT 125 10^3/uL (150-450); RED BLOOD COUNT 2.68 10^6/uL (3.72-5.28); RED CELL DISTRIBUTION WIDTH 16.8 % (11.5-14.0); SEGMENTED NEUTROPHILS % (AUTO) 73.5 % (42-78); TOTAL CELLS COUNTED % (AUTO) 100 %; WHITE BLOOD COUNT 13.6 10^3/uL (4.0-10.5)
[2020-06-03 19:39] LABS: POTASSIUM 4.5 mmol/L (3.6-5.0)
[2020-06-04 06:14] LABS: ABSOLUTE BASOPHILS # (AUTO) 0.1 10^3/uL (0.0-0.2); ABSOLUTE EOSINOPHILS # (AUTO) 0.2 10^3/uL (0.0-0.6); ABSOLUTE LYMPHOCYTES (AUTO) 2.1 10^3/uL (0.5-4.7); ABSOLUTE MONOCYTES (AUTO) 0.2 10^3/uL (0.1-1.4); ABSOLUTE NEUT (AUTO) 8.9 10^3/uL (1.7-8.2); BASOPHILS % (AUTO) 0.7 % (0-2); EOSINOPHILS % (AUTO) 1.7 % (0-6); HEMATOCRIT 25.2 % (36.0-47.0); HEMOGLOBIN 8.4 g/dL (12.0-15.5); LYMPHOCYTES % (AUTO) 18.3 % (13-45); MEAN CORPUSCULAR HEMOGLOBIN 30.1 pg (27.0-33.4); MEAN CORPUSCULAR HGB CONC 33.1 g/dL (32.0-36.0); MEAN CORPUSCULAR VOLUME 91 fl (80-97); MONOCYTES % (AUTO) 1.9 % (3-13); PLATELET COUNT 104 10^3/uL (150-450); RED BLOOD COUNT 2.78 10^6/uL (3.72-5.28); SEGMENTED NEUTROPHILS % (AUTO) 77.4 % (42-78); TOTAL CELLS COUNTED % (AUTO) 100 %; WHITE BLOOD COUNT 11.5 10^3/uL (4.0-10.5)
[2020-06-04] MEDS ORDERED: BUMETANIDE INJ/PF 1 MG/4 ML SDV IV ONE (06:30)
[2020-06-04 06:48] LABS: ANION GAP 7 (5-19); BLOOD UREA NITROGEN 43 mg/dL (7-20); CARBON DIOXIDE 17 mmol/L (22-30); CHLORIDE 116 mmol/L (98-107); GLUCOSE 77 mg/dL (75-110); PHOSPHORUS 1.9 mg/dL (2.5-4.5); POTASSIUM 4.3 mmol/L (3.6-5.0)
[2020-06-04 07:04] LABS: CALCIUM 6.9 mg/dL (8.4-10.2)
[2020-06-04] MEDS: PHOSPHORUS #1 250 MG TABLET PO SCH ×2 (08:32→11:04)
[2020-06-04] MEDS ORDERED: IPRATROPIUM/ALBUTEROL 0.5-2.5 MG/3 ML AMPUL NEB PRN (09:25)
--- NOTE | 2020-06-04 09:49 | RADIOLOGY REPORT (SQ) ---
EXAM DESCRIPTION: CHEST SINGLE VIEW IMAGES COMPLETED DATE/TIME: 06/04/2020 9:40 am REASON FOR STUDY: increase lung sound COMPARISON: 06/02/2020. EXAM PARAMETERS: NUMBER OF VIEWS: One view. TECHNIQUE: Single frontal radiographic view of the chest acquired. RADIATION DOSE: NA LIMITATIONS: None. FINDINGS: LUNGS AND PLEURA: Elevated left hemidiaphragm. Density in the left lung base. Left pleur al effusion, slightly increased. Right basilar airspace disease. MEDIASTINUM AND HILAR STRUCTURES: No masses. Contour normal. HEART AND VASCULAR STRUCTURES: Heart normal in size. Normal vasculature. BONES: No acute findings. HARDWARE: Vascular port. Surgical clips. OTHER: No other significant finding. IMPRESSION: LEFT PLEURAL EFFUSION IS SLIGHTLY INCREASED AND THERE IS ALSO INCREASING DENSITY IN THE RIGHT LUNG BASE. TECHNICAL DOCUMENTATION: JOB ID: [id number] 2010 [employer]- All Rights Reserved Reading location - IP/workstation name: [email or web address]
[2020-06-04] MEDS: ENOXAPARIN SODIUM INJ 30 MG/0.3 ML DISP.SYRIN SUBCUT SCH (09:55)
[2020-06-04] MEDS: LACOSAMIDE INJ/PF 200 MG/20 ML SDV IV SCH (09:58)
[2020-06-04] MEDS: CEFEPIME 1 GM/D5W RTU 1 GM/50 ML RTUPB IV SCH (09:58)
[2020-06-04] MEDS: PANTOPRAZOLE SODIUM 40 MG VIAL IV SCH (09:58)
[2020-06-04] MEDS: NORMAL SALINE 1000 ML 1,000 ML IV PRN (09:58)
[2020-06-04] MEDS: LEVOTHYROXINE SODIUM 0.1 MG TABLET PO SCH (09:59)
[2020-06-04] MEDS: ALBUMIN HUMAN 12.5 GM/50 ML RTUINJ IV SCH ×4 (10:44→13:17)
[2020-06-04] MEDS ORDERED: MORPHINE SULFATE 10 MG/ML INJ IV PRN ×2 (12:00→12:30)
[2020-06-04] MEDS ORDERED: MORPHINE SULFATE 10 MG/ML INJ ONE (12:05)
[2020-06-04] MEDS ORDERED: SCOPOLAMINE HYDROBROMIDE 1.5 MG PATCH.TD72 TD SCH (12:30)
--- NOTE | 2020-06-04 12:34 | PDOC PROGRESS REPORT ---
Subjective Progress Note for:: 06/04/20 Subjective:: Pt declined overnight, now w/ breathing changes c/w end of life. D/w family and will begin comfort care measures, started morphine, will d/c all other unneeded meds. Reason For Visit: PROBABLE SEPSIS,ACUTE KIDNEY INJURY,HYPOKALEMIA,SE Physical Exam Vital Signs: Temp Pulse Resp BP Pulse Ox 97.6 F 95 30 H 140/58 H 82 L 06/04/20 10:00 06/04/20 09:37 06/04/20 09:37 06/04/20 00:20 06/04/20 09:37 Intake & Output 06/03/20 06/04/20 06/05/20 06:59 06:59 06:59 Intake Total 1100 2389 1150 Output Total 100 265 Balance 1000 2124 1150 Weight 37.8 kg General appearance: PRESENT: mild distress Head exam: PRESENT: atraumatic Respiratory exam: PRESENT: accessory muscle use, retraction, rhonchi, tachypnea Cardiovascular exam: PRESENT: irregular rhythm GI/Abdominal exam: PRESENT: diminished bowel sounds Rectal exam: PRESENT: deferred Neurological exam: PRESENT: altered, aphasic Results Laboratory Results: 06/04/20 06:00 06/04/20 06:00 06/03/20 06/03/20 06/03/20 06:10 18:20 18:36 WBC 13.6 H RBC 2.68 L Hgb 8.0 L Hct 24.2 L MCV 90 MCH 29.8 MCHC 33.1 RDW 16.8 H Plt Count 125 L Seg Neutrophils % 73.5 Sodium 138.4 Potassium 4.5 D Chloride 115 H Carbon Dioxide 18 L Anion Gap 5 BUN 44 H Creatinine 1.38 H Est GFR ( Amer) 45 L Glucose 116 H Lactic Acid Calcium 7.1 L Phosphorus Magnesium 1.8 06/03/20 06/04/20 06/04/20 18:36 06:00 06:00 WBC 11.5 H RBC 2.78 L Hgb 8.4 L Hct 25.2 L MCV 91 MCH 30.1 MCHC 33.1 RDW 17.0 H Plt Count 104 L Seg Neutrophils % 77.4 Sodium 140.3 Potassium 4.3 Chloride 116 H Carbon Dioxide 17 L Anion Gap 7 BUN 43 H Creatinine 1.22 Est GFR ( Amer) 52 L Glucose 77 Lactic Acid 2.3 H Calcium 6.9 L* Phosphorus 1.9 L Magnesium 1.6 06/02/20 14:10 Catheterized Urine Urine Culture - Final NO GROWTH 2 DAYS Impressions: Chest X-Ray 06/04/20 08:36 IMPRESSION: LEFT PLEURAL EFFUSION IS SLIGHTLY INCREASED AND THERE IS ALSO INCREASING DENSITY IN THE RIGHT LUNG BASE. Assessment & Plan - Diagnosis (1) Lung cancer Qualifiers: Laterality: left Lung location: lower lobe of lung Qualified Code(s): C34.32 - Malignant neoplasm of lower lobe, left bronchus or lung Is this a current diagnosis for this admission?: Yes Plan: Comfort care measures started, start morphine IV today (2) UTI (urinary tract infection) Qualifiers: Urinary tract infection type: catheter-associated UTI Indwelling urinary catheter type: indwelling urethral catheter Encounter type: initial encounter Qualified Code(s): T83.511A - Infection and inflammatory reaction due to indwelling urethral catheter, initial encounter; N39.0 - Urinary tract infection, site not specified Is this a current diagnosis for this admission?: Yes Plan: Stop atbx (3) Dehydration Is this a current diagnosis for this admission?: Yes Plan: Stop IVF - Time Time Spent with patient: 35 or more minutes
--- NOTE | 2020-06-04 12:45 | PDOC PROGRESS REPORT ---
Subjective Progress Note for:: 06/04/20 Subjective:: Patient's condition took a downward trend this morning with more difficulty with breathing and worsening chest x ray suggestive of increase pleural effusion and right lower lobe opacity. This is related to recurrent aspiration. Family has agreed to make patient comfort care at this time. Reason For Visit: PROBABLE SEPSIS,ACUTE KIDNEY INJURY,HYPOKALEMIA,SE Physical Exam Vital Signs: Temp Pulse Resp BP Pulse Ox 97.6 F 95 30 H 140/58 H 82 L 06/04/20 10:00 06/04/20 09:37 06/04/20 09:37 06/04/20 00:20 06/04/20 09:37 Intake & Output 06/03/20 06/04/20 06/05/20 06:59 06:59 06:59 Intake Total 1100 2389 1150 Output Total 100 265 Balance 1000 2124 1150 Weight 37.8 kg Physical Exam: General appearance: PRESENT: Grunting breath sound and moribund. Remain on supplemental oxygen. Respiratory exam: PRESENT: scattered crackle, decreased breath sounds Cardiovascular exam: PRESENT: RRR, +S1, +S2. ABSENT: rubs Neurological exam: PRESENT: Lethargic Skin exam: PRESENT: dry, warm Results Laboratory Results: 06/04/20 06:00 06/04/20 06:00 06/03/20 06/03/20 06/03/20 06:10 18:20 18:36 WBC 13.6 H RBC 2.68 L Hgb 8.0 L Hct 24.2 L MCV 90 MCH 29.8 MCHC 33.1 RDW 16.8 H Plt Count 125 L Seg Neutrophils % 73.5 Sodium 138.4 Potassium 4.5 D Chloride 115 H Carbon Dioxide 18 L Anion Gap 5 BUN 44 H Creatinine 1.38 H Est GFR ( Amer) 45 L Glucose 116 H Lactic Acid Calcium 7.1 L Phosphorus Magnesium 1.8 06/03/20 06/04/20 06/04/20 18:36 06:00 06:00 WBC 11.5 H RBC 2.78 L Hgb 8.4 L Hct 25.2 L MCV 91 MCH 30.1 MCHC 33.1 RDW 17.0 H Plt Count 104 L Seg Neutrophils % 77.4 Sodium 140.3 Potassium 4.3 Chloride 116 H Carbon Dioxide 17 L Anion Gap 7 BUN 43 H Creatinine 1.22 Est GFR ( Amer) 52 L Glucose 77 Lactic Acid 2.3 H Calcium 6.9 L* Phosphorus 1.9 L Magnesium 1.6 06/02/20 14:10 Catheterized Urine Urine Culture - Final NO GROWTH 2 DAYS Impressions: Chest X-Ray 06/04/20 08:36 IMPRESSION: LEFT PLEURAL EFFUSION IS SLIGHTLY INCREASED AND THERE IS ALSO INCREASING DENSITY IN THE RIGHT LUNG BASE. 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 Is this a current diagnosis for this admission?: Yes (6) History of chronic lymphocytic leukemia Is this a current diagnosis for this admission?: Yes (7) Malnutrition Qualifiers: Malnutrition type: protein-calorie malnutrition Protein-calorie malnutrition severity: moderate Qualified Code(s): E44.0 - Moderate protein- calorie malnutrition Is this a current diagnosis for this admission?: Yes (8) Aspiration pneumonia Qualifiers: Aspiration pneumonia type: unspecified Laterality: right Lung location: l ower lobe of lung Qualified Code(s): J69.0 - Pneumonitis due to inhalation of food and vomit Is this a current diagnosis for this admission?: Yes - Time Time Spent with patient: 25-34 minutes Level of Care: MEDICAL Medications reviewed and adjusted accordingly: Yes Anticipated discharge: Home Anticipated DC Timeframe: within 72 hours - Inpatient Certification Based on my medical assessment, after consideration of the patient's comorbidities, presenting symptoms, or acuity I expect that the services needed warrant INPATIENT care.: Yes I certify that my determination is in accordance with my understanding of Medicare's requirements for reasonable and necessary INPATIENT services [42 CFR 412.3e].: Yes Medical Necessity: Significant Comorbidiites Make Outpatient Treatment Too Risky, Need Close Monitoring Due to Risk of Patient Decompensation, Need for Nebulizer Therapy and Monitoring of Response, Need for Pain Control, Risk of Complication if Not Cared For in Hospital, Risk of Diagnosis Which Will Require Inpatient Eval/Care/Monitoring Post Hospital Care: D/C Press Writer Documentation - Plan Summary Plan Summary: Patient will remain on comfort care. I had extensive discussion with son at bedside. Overall prognosis remain poor due to advance age and morbidities.
[2020-06-04] MEDS: MORPHINE SULFATE 10 MG/ML INJ IV SCH ×5 (14:01→23:02)
[2020-06-04 14:59] VITALS: BP 104/51
[2020-06-04] MEDS ORDERED: IPRATROPIUM/ALBUTEROL 0.5-2.5 MG/3 ML AMPUL NEB SCH (16:00)
[2020-06-05] MEDS ORDERED: (PENDING PHARMACY ID) (Cholecalciferol (Vitamin D3) [Vitamin D3] 50,000 UNIT) PO SCH (10:00)
--- NOTE | 2020-06-05 18:48 | Death Summary ---
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 Her initial evaluation suggested possible sepsis with acute kidney injury from dehydration. She was treated with IV fluid support and IV antibiotic. Her stay was further complicated with recurrent aspiration and worsening right lower lobe opacification suggestive of aspiration pneumonia. Her admitting DNR status was changed to comfort care at family request due to her overall poor prognosis and advance morbidities including metastatic lung cancer with brain involvement and CLL. She was pronounced at about 22:02 Hour on 06/04/2020. Her certificate will be handled by Dr. Almonte, her medical oncologist.
== END 2020-06-04 23:45 | DRG 871 ==
LOC: ER 05:31 → UNDOADMOB 08:29 → EH 08:29 → INTOOBSV 08:29 → OBSVTOIN 08:29 → EH 13:10 → 4N 13:10 → OBSVTOIN 06-03 12:22 → 4N 06-03 12:22 → EH 06-03 12:22 → UNDODISIN 06-04 23:45
PROVIDERS: ADMIT Internal Medicine Geriatric Medicine; ATTEND Internal Medicine Geriatric Medicine
DX: A41.9 Sepsis, unspecified organism (principal); J69.0 Pneumonitis due to inhalation of food and vomit; T83.511A Infection and inflammatory reaction due to indwelling urethral catheter, initial encounter; C34.32 Malignant neoplasm of lower lobe, left bronchus or lung; C79.31 Secondary malignant neoplasm of brain; C91.10 Chronic lymphocytic leukemia of B-cell type not having achieved remission; N17.9 Acute kidney failure, unspecified; Z51.5 Encounter for palliative care; E44.0 Moderate protein-calorie malnutrition; N39.0 Urinary tract infection, site not specified; E86.0 Dehydration; G40.909 Epilepsy, unspecified, not intractable, without status epilepticus; I10 Essential (primary) hypertension; Z66 Do not resuscitate; T44.3X5A Adverse effect of other parasympatholytics [anticholinergics and antimuscarinics] and spasmolytics, initial encounter; Z88.2 Allergy status to sulfonamides; Z88.0 Allergy status to penicillin; Z79.899 Other long term (current) drug therapy; Z79.890 Hormone replacement therapy; E87.6 Hypokalemia; E86.1 Hypovolemia; Y84.6 Urinary catheterization as the cause of abnormal reaction of the patient, or of later complication, without mention of misadventure at the time of the procedure
CPT/HCPCS: 36415; 36591; 71045; 80048; 80053; 81001; 83605; 83735; 84100; 85025; 87040; 87086; 94640; 96361; 96365; 96375; 99285; C9113; C9254; G0378; J0692; J1940; J2270; J3480; J3490; J7030; J7042; J7121; P9047